=== PATIENT | female | born 1965 | race Caucasian/White ===

== ENCOUNTER 2017-08-20 00:05 | Observation (INO) | payer OTHER ==
[2017-08-20] MEDS ORDERED: MORPHINE SULFATE 10 MG/ML IV ONE (00:23)
[2017-08-20] MEDS ORDERED: Zofran 4 MG/2 ML VIAL IV ONE (00:23)
[2017-08-20] MEDS ORDERED: TORAdol 30 mg Injection IV ONE (00:23)
[2017-08-20] MEDS ORDERED: Sodium Chloride 0.9% 1000 ML 1,000 ML IV STA (00:23)
--- NOTE | 2017-08-20 00:26 | ERPHSYRPT ---
- History of Present Illness Time Seen by Provider: 08/20/17 00:21 Historian: patient Exam Limitations: no limitations Physician History: The patient is a 51-year-old female with her complaining of increasing right sided abdominal pain and right flank pain since earlier today. She is nauseated. She has not vomited. She did take her prescription Zantac today. She's had a cholecystectomy. She had a kidney stone with ureteral stents 24 years ago. She has a history of hypertension but no longer takes any medicine. She has a history of irritable bowel syndrome. She has gastric reflux. Pt last ate at 2 PM. Timing/Duration: today Activities at Onset: none Quality: sharpness Abdominal Pain Onset Location: RLQ, flank (right flank) Pain Radiation: no radiation Severity of Pain-Max: severe Severity of Pain-Current: severe Modifying Factors: Improves With: nothing Associated Symptoms: nausea Previous symptoms: no prior history Allergies/Adverse Reactions: hydromorphone [From Dilaudid] Adverse Reaction (Verified 08/20/17 00:33) Home Medications: Ranitidine HCl [Zantac] 150 mg PO DAILY 01/14/15 [History] Alprazolam [Xanax] 0 mg HS 08/20/17 [History] Melatonin 5 mg PO HS 08/20/17 [History] Hx Tetanus, Diphtheria Vaccination/Date Given: No Hx Influenza Vaccination/Date Given: Yes Hx Pneumococcal Vaccination/Date Given: No - Review of Systems Constitutional: No Fever, No Chills Eyes: No Symptoms Ears, Nose, & Throat: No Symptoms Respiratory: No Cough, No Dyspnea Cardiac: No Chest Pain, No Edema, No Syncope Abdominal/Gastrointestinal: Abdominal Pain, Nausea Genitourinary Symptoms: No Dysuria Musculoskeletal: No Back Pain, No Neck Pain Skin: No Rash Neurological: No Dizziness, No Focal Weakness, No Sensory Changes Psychological: No Symptoms Endocrine: No Symptoms Hematologic/Lymphatic: No Symptoms Immunological/Allergic: No Symptoms All Other Systems: Reviewed and Negative - Past Medical History Pertinent Past Medical History: Yes Neurological History: No Pertinent History ENT History: No Pertinent History Cardiac History: Hypertension Respiratory History: Other Endocrine Medical History: No Pertinent History Musculoskeletal History: Fibromyalgia, Osteoarthritis GI Medical History: Diverticulosis, GERD History: No Pertinent History Psycho-Social History: Anxiety, Depression Female Reproductive Disorders: No Pertinent History Other Medical History: SEASONAL ALLERGIES, OA KNEES, GERD - Past Surgical History Past Surgical History: Yes Neuro Surgical History: No Pertinent History Cardiac: No Pertinent History Respiratory: No Pertinent History Gastrointestinal: Cholecystectomy Genitourinary: No Pertinent History Musculoskeletal: No Pertinent History Female Surgical History: Section Other Surgical History: x 1 (epicural) - Social History Smoking Status: Never smoker Exposure to second hand smoke: No Alcohol Use: None Drug Use: none Patient Lives Alone: No Significant Family History: diabetes, hypertension - Female History Hx Now: No - Nursing Vital Signs Nursing Vital Signs: Initial Vital Signs Temperature 98 F 08/20/17 00:23 Pulse Rate 70 08/20/17 00:23 Respiratory Rate 16 08/20/17 00:23 Blood Pressure 168/120 08/20/17 00:23 O2 Sat by Pulse Oximetry 99 08/20/17 00:23 Pain Scale Pain Intensity 5 - Physical Exam General Appearance: moderate distress Eye Exam: PERRL/EOMI, eyes nml inspection Ears, Nose, Throat Exam: normal ENT inspection, pharynx normal, moist mucous membranes Neck Exam: normal inspection, non-tender, supple, full range of motion Respiratory Exam: normal breath sounds, lungs clear, No respiratory distress Cardiovascular Exam: regular rate/rhythm, normal heart sounds Gastrointestinal/Abdomen Exam: tenderness (RLQ), guarding, rebound Pelvic Exam: not done Rectal Exam: not done Back Exam: CVA tenderness (right) Extremity Exam: normal inspection, normal range of motion, pelvis stable Neurologic Exam: alert, oriented x 3, cooperative, normal mood/affect, nml cerebellar function, sensation nml, No motor deficits Skin Exam: normal color, warm, dry SpO2 Interpretation: normal - CT Exams Abdomen/Pelvis CT Interpretation: Tele-radiologist Report, No appendicitis, Other (mildly dilated segment of small bowel in mid abd: possible low grade ileus. nonobstructing right renal calculus. unchanged 5 mm LLL pulmonary nodule. per Dr Carrasco.) Ordered Tests: Active Orders 24 hr Category Date Time Status Clean Catch Urine Specimen STAT Care 08/20/17 00:34 Active IV Insertion STAT Care 08/20/17 00:23 Active ABDOMEN AND PELVIS W/0 CONTRAS [CT] Stat Exams 08/20/17 00:22 Taken CBC W DIFF Stat Lab 08/20/17 00:35 Completed CMP Stat Lab 08/20/17 00:35 Completed HCG QUALITATIVE,SERUM Stat Lab 08/20/17 00:35 Completed LIPASE Stat Lab 08/20/17 00:35 Completed Lactic Acid Stat Lab 08/20/17 00:40 Completed TROPONIN Q3H Lab 08/20/17 00:35 Completed TROPONIN Q3H Lab 08/20/17 03:30 Ordered TROPONIN Q3H Lab 08/20/17 06:30 Ordered TROPONIN Q3H Lab 08/20/17 09:30 Ordered TROPONIN Q3H Lab 08/20/17 12:30 Ordered UA W/RFX UR CULTURE Stat Lab 08/20/17 00:30 Completed Medication Summary Discontinued Medications Generic Name Dose Route Start Last Admin Trade Name Freq PRN Reason Stop Dose Admin Sodium Chloride 1,000 mls @ 999 mls/hr 08/20/17 00:23 08/20/17 00:42 Sodium Chloride 0.9% 1000 Ml IV 08/20/17 01:23 999 mls/hr .Q1H1M STA Administration Sodium Chloride Confirm 08/20/17 00:38 Sodium Chloride 0.9% 1000 Ml Administered 08/20/17 00:39 Dose 1,000 mls @ ud .ROUTE .STK-MED ONE Ketorolac Tromethamine 30 mg 08/20/17 00:23 08/20/17 00:41 Toradol 30 Mg Injection IV 08/20/17 00:24 30 mg STAT ONE Administration Ketorolac Tromethamine Confirm 08/20/17 00:38 Toradol 30 Mg Injection Administered 08/20/17 00:39 Dose 30 mg .ROUTE .STK-MED ONE Morphine Sulfate 8 mg 08/20/17 00:23 08/20/17 00:44 Morphine Sulfate 10 Mg/Ml IV 08/20/17 00:24 8 mg STAT ONE Administration Morphine Sulfate Confirm 08/20/17 00:38 Morphine Sulfate 10 Mg/Ml Administered 08/20/17 00:39 Dose 10 mg .ROUTE .STK-MED ONE Ondansetron HCl 4 mg 08/20/17 00:23 08/20/17 00:43 Zofran 4 Mg/2 Ml Vial IV 08/20/17 00:24 4 mg STAT ONE Administration Ondansetron HCl Confirm 08/20/17 00:38 Zofran 4 Mg/2 Ml Vial Administered 08/20/17 00:39 Dose 4 mg .ROUTE .STK-MED ONE Lab/Rad Data: Laboratory Result Diagrams 08/20/17 00:35 08/20/17 00:35 Laboratory Results 08/20/17 08/20/17 08/20/17 Range/Units 00:40 00:35 00:35 WBC (4.0-10.5) K/mm3 RBC (4.1-5.4) M/mm3 Hgb (12.0-16.0) gm/dl Hct (35-47) % MCV (78-100) fl MCH (26-32) pg MCHC (32-36) g/dl RDW (11.5-14.0) % Plt Count (150-450) K/mm3 MPV (6-9.5) fl Gran % (36.0-66.0) % Lymphocytes % (24.0-44.0) % Monocytes % (0.0-12.0) % Eosinophils % (0.00-5.0) % Basophils % (0.0-0.4) % Basophils # (0-0.4) Sodium (136-145) mEq/L Potassium (3.5-5.1) mEq/L Chloride (98-107) mEq/L Carbon Dioxide (21-32) mEq/L Anion Gap (5-15) MEQ/L BUN (9-20) mg/dL Creatinine (0.55-1.30) mg/dl Estimated GFR ML/MIN Glucose (70-110) MG/DL Lactic Acid 1.2 (0.4-2.0) Calcium (8.5-10.1) mg/dL Total Bilirubin (0.2-1.0) mg/dL AST (15-37) U/L ALT (12-78) U/L Alkaline Phosphatase (46-116) U/L Troponin I < 0.017 (0.000-0.056) ng/ml Serum Total Protein (6.4-8.2) gm/dL Albumin (3.4-5.0) g/dL Lipase (73-393) U/L Serum , Qual NEGATIVE (Negative) Ur Collection Type Urine Color (YELLOW) Urine Appearance (CLEAR) Urine pH (5-6) Ur Specific Erving (1.005-1.025) Urine Protein (Negative) Urine Ketones (NEGATIVE) Urine Blood (0-5) Dilip/ul Urine Nitrite (NEGATIVE) Urine Bilirubin (NEGATIVE) Urine Urobilinogen (0-1) mg/dL Ur Leukocyte Esterase (NEGATIVE) Urine Culture Reflexed (NO) Urine Glucose (NEGATIVE) mg/dL Specimen Received 08/20/17 08/20/17 08/20/17 Range/Units 00:35 00:35 00:30 WBC 7.8 (4.0-10.5) K/mm3 RBC 4.90 (4.1-5.4) M/mm3 Hgb 14.5 (12.0-16.0) gm/dl Hct 42.7 (35-47) % MCV 87.1 (78-100) fl MCH 29.6 (26-32) pg MCHC 34.0 (32-36) g/dl RDW 12.8 (11.5-14.0) % Plt Count 284 (150-450) K/mm3 MPV 9.5 (6-9.5) fl Gran % 52.8 (36.0-66.0) % Lymphocytes % 37.9 (24.0-44.0) % Monocytes % 7.9 (0.0-12.0) % Eosinophils % 1.0 (0.00-5.0) % Basophils % 0.4 (0.0-0.4) % Basophils # 0.03 (0-0.4) Sodium 140 (136-145) mEq/L Potassium 4.0 (3.5-5.1) mEq/L Chloride 103 (98-107) mEq/L Carbon Dioxide 25.7 (21-32) mEq/L Anion Gap 15.0 (5-15) MEQ/L BUN 22 H (9-20) mg/dL Creatinine 0.62 (0.55-1.30) mg/dl Estimated GFR > 60 ML/MIN Glucose 125 H (70-110) MG/DL Lactic Acid (0.4-2.0) Calcium 10.1 (8.5-10.1) mg/dL Total Bilirubin 0.30 (0.2-1.0) mg/dL AST 31 (15-37) U/L ALT 48 (12-78) U/L Alkaline Phosphatase 98 (46-116) U/L Troponin I (0.000-0.056) ng/ml Serum Total Protein 8.1 (6.4-8.2) gm/dL Albumin 4.3 (3.4-5.0) g/dL Lipase 141 (73-393) U/L Serum , Qual (Negative) Ur Collection Type CLEAN CATCH Urine Color YELLOW (YELLOW) Urine Appearance CLEAR (CLEAR) Urine pH 5.0 (5-6) Ur Specific Erving 1.010 (1.005-1.025) Urine Protein NEGATIVE (Negative) Urine Ketones NEGATIVE (NEGATIVE) Urine Blood NEGATIVE (0-5) Dilip/ul Urine Nitrite NEGATIVE (NEGATIVE) Urine Bilirubin NEGATIVE (NEGATIVE) Urine Urobilinogen NORMAL (0-1) mg/dL Ur Leukocyte Esterase NEGATIVE (NEGATIVE) Urine Culture Reflexed NO (NO) Urine Glucose NEGATIVE (NEGATIVE) mg/dL Specimen Received 08/20/17:0030 - Progress Progress: improved, pain not gone completely Discussed with : Florina Will see patient in: hospital (observation) Counseled pt/family regarding: lab results, diagnosis, rad results - Departure Time of Disposition: 01:44 Departure Disposition: Observation (per Dr Heaton) Clinical Impression: Abdominal pain, Nausea Condition: Stable Critical Care Time: No Referrals: JOANA HAIDER [Primary Care Provider] - Additional Instructions: Your being admitted to the hospital for abdominal pain and nausea per Dr. Heaton.
[2017-08-20] MEDS ORDERED: TORAdol 30 mg Injection ONE (00:38)
[2017-08-20] MEDS ORDERED: Sodium Chloride 0.9% 1000 ML 1,000 ML ONE (00:38)
[2017-08-20] MEDS ORDERED: Zofran 4 MG/2 ML VIAL ONE (00:38)
[2017-08-20] MEDS ORDERED: MORPHINE SULFATE 10 MG/ML ONE (00:38)
[2017-08-20 00:42] LABS: ADD URINE CULTURE? NO (NO); Bilirubin NEGATIVE (NEGATIVE); Blood NEGATIVE Ery/ul (0-5); COMPLETE URINE MICROSCOPIC? NO; Collection Type CLEAN CATCH; Glucose NEGATIVE (NEGATIVE); Leukocyte Esterase NEGATIVE (NEGATIVE)
[2017-08-20 00:44] LABS: BASOPHIL % 0.4 % (0.0-0.4); Granulocytes % 52.8 % (36.0-66.0); Lymphocytes % 37.9 % (24.0-44.0); Mean Cell Volume 87.1 fl (78-100); Mean Corpuscular Hemoglobin 29.6 pg (26-32); Mean Platelet Volume 9.5 fl (6-9.5); Monocytes % 7.9 % (0.0-12.0); Platelet Count 284 K/mm3 (150-450); Red Cell Distribution Width 12.8 % (11.5-14.0); White Blood Count 7.8 K/mm3 (4.0-10.5)
[2017-08-20 01:00] LABS: ALBUMIN 4.3 g/dL (3.4-5.0); ALKALINE PHOSPHATASE 98 U/L (46-116); BLOOD UREA NITROGEN 22 mg/dL (9-20); CHLORIDE 103 mEq/L (98-107); Carbon Dioxide 25.7 mEq/L (21-32); Glucose 125 MG/DL (70-110); LIPASE 141 U/L (73-393); SGOT/AST 31 U/L (15-37); SGPT/ALT 48 U/L (12-78); SODIUM 140 mEq/L (136-145); Total Protein 8.1 gm/dL (6.4-8.2)
[2017-08-20] MEDS ORDERED: Zofran 4 MG/2 ML VIAL IV PRN (02:18)
[2017-08-20] MEDS ORDERED: Phenergan 25 MG INJ IM PRN (02:18)
[2017-08-20] MEDS ORDERED: MORPHINE SULFATE 4 MG INJ IV PRN (02:18)
[2017-08-20] MEDS ORDERED: Sodium Chloride 0.9% 1000 ML 1,000 ML IV SCH (02:18)
[2017-08-20 07:00] LABS: BASOPHIL % 0.2 % (0.0-0.4); Eosinophil % 0.1 % (0.00-5.0); Granulocytes % 71.8 % (36.0-66.0); Lymphocytes % 21.1 % (24.0-44.0); Mean Cell Volume 87.4 fl (78-100); Mean Corpuscular Hemoglobin 29.3 pg (26-32); Mean Platelet Volume 9.8 fl (6-9.5); Monocytes % 6.8 % (0.0-12.0); Platelet Count 255 K/mm3 (150-450); Red Blood Count 4.61 M/mm3 (4.1-5.4); Red Cell Distribution Width 12.8 % (11.5-14.0); White Blood Count 8.1 K/mm3 (4.0-10.5)
[2017-08-20 07:09] LABS: ALBUMIN 3.5 g/dL (3.4-5.0); ALKALINE PHOSPHATASE 75 U/L (46-116); ANION GAP 14.2 MEQ/L (5-15); BLOOD UREA NITROGEN 16 mg/dL (9-20); CHLORIDE 106 mEq/L (98-107); Carbon Dioxide 24.2 mEq/L (21-32); Glucose 117 MG/DL (70-110); Potassium 4.3 mEq/L (3.5-5.1); SGOT/AST 46 U/L (15-37); SGPT/ALT 61 U/L (12-78); SODIUM 140 mEq/L (136-145); Total Protein 7.4 gm/dL (6.4-8.2)
--- NOTE | 2017-08-20 07:54 | XRAY ---
Indication: Abdominal pain. History kidney stones. Multiple contiguous axial images obtained through the abdomen and pelvis without contrast using renal stone protocol. Comparison: June 14, 2015. Lung bases demonstrates minimal bibasilar atelectasis/scarring with stable right lower lobe calcified granuloma. Heart is not enlarged. Stable nonobstructing punctate right renal calculus. Left kidney negative for renal calculus or evidence for obstructive uropathy. Noncontrasted stomach and bowel loops appear nonobstructed. Scattered descending/sigmoid diverticulosis without diverticulitis. Normal appendix. Previous cholecystectomy. Mild fatty liver. No free fluid/air. Remaining liver, pancreas, spleen, adrenal glands, kidneys, ureters, bladder, uterus, and aorta appear unremarkable for noncontrast exam. Osseous structures intact. Impression: 1. Stable nonobstructing right renal micro-calculus. 2. Stable colonic diverticulosis and fatty liver. 3. No new/acute intra-abdominal/pelvic abnormalities on this noncontrast exam. Comment: Preliminary interpretation was made by C. No discrepancy. CTDI 22.55
[2017-08-20] MEDS ORDERED: PROTONIX 40 MG IV IV SCH (10:00)
[2017-08-20] MEDS ORDERED: TYLENOL EXTRA STRENGTH 500 MG PO PRN (10:09)
[2017-08-20] MEDS ORDERED: ZOFRAN ODT 4 MG PO PRN (10:45)
[2017-08-20] MEDS ORDERED: Pepcid 20 MG PO SCH (11:00)
[2017-08-20 11:20] VITALS: BP 151/68; PULSE 63; O2SAT 96
[2017-08-20] MEDS ORDERED: xanAX 0.25 MG PO SCH (22:00)
--- NOTE | 2017-08-21 08:07 | HP ---
CHIEF COMPLAINT: Epigastric pain. HISTORY OF PRESENT ILLNESS: The patient is a 51 year-old white female who reports that she was having increasing stress recently. Her abdominal pain was due to a combination of not eating right and stress. The patient has had epigastric pain off and on for some time. She has had previous endoscopy which was essentially unrevealing. She reports that omeprazole really did not help much and that she takes Zantac 150 mg b.i.d. She also takes Margot's which does give her some temporary relief. The patient reports that last evening she was having vomiting with her abdominal pain but no diarrhea. The patient previously has had a cholecystectomy. She has had colonoscopy in the past three years ago which did show colon polyps. She also was noted to have diverticulosis but not diverticulitis. PAST MEDICAL/SURGICAL HISTORY: She reports seasonal allergies, fibromyalgia, osteoarthritis and hypertension. HOME MEDICATIONS: Zantac 150 mg b.i.d., Xanax 0.5 mg at nighttime for anxiety, melatonin 5 mg at night. ALLERGIES: DILAUDID. PHYSICAL EXAMINATION: Revealed a mildly obese white female currently in moderate to mild distress due to her abdominal discomfort. Her temperature is 98.0F, pulse 70, respiratory rate 16, blood pressure 168/120. O2 saturation 99% on room air. HEENT: Normocephalic, atraumatic. Pupils equal round reactive to light. Extraocular movements intact. Oropharynx is pink and moist. NECK: Supple without lymphadenopathy, thyromegaly or JVD. CHEST: Clear to auscultation with good air movement bilaterally. ABDOMEN: Soft, nontender, nondistended without hepatosplenomegaly or masses. She is somewhat tender throughout. No guarding or rebound is present. EXTREMITIES: Without clubbing, cyanosis or edema. NEUROLOGIC: The patient is alert and oriented x3. LAB DATA AND TESTS: CT scan revealed no appendicitis, nonobstructing right renal calculus, 5 mm left lower lobe pulmonary nodule which is unchanged from previous. She had a metabolic panel showing a glucose of 117, BUN 16, creatinine 0.64. Electrolytes were normal. Liver enzymes were normal. Bilirubin is normal. Troponins less than 0.017. White blood cell count 8,100, hemoglobin 13.5, PLT count 255,000. She had a lipase of 141. HCG was negative. Lactic acid 1.2. UA was normal. ASSESSMENT: A patient with abdominal pain likely gastric in origin. She is given IV Protonix and allowed to advance her diet. If she is able to tolerate her meals she will be able to discharge home. She reports she has an appointment to see Dr. Augustin this coming week for upper endoscopy. If the patient however cannot tolerate the meals and continues to have abdominal pain, we will perform the scope for her at our facility tomorrow morning.
== END 2017-08-20 13:30 | disposition home or self-care (01) ==
LOC: ED 00:05 → MED SURG 01:57
PROVIDERS: ADMIT Family Medicine; ATTEND Family Medicine
DX: R10.13 Epigastric pain (principal); I10 Essential (primary) hypertension
CPT/HCPCS: 36000; 36415; 74176; 80053; 81002; 83605; 83690; 84484; 84703; 85025; 94762; 96360; 96374; 96375; 99285; G0378; J1885; J2270; J2405; J2550; A9270-GY

== ENCOUNTER 2018-02-02 17:28 | Emergency (ER) | payer OTHER ==
[2018-02-02] MEDS ORDERED: GI COCKTAIL 45 ML (Maalox/Lidocaine) PO ONE (18:01)
[2018-02-02] MEDS ORDERED: Zofran 4 MG/2 ML VIAL IV ONE (18:01)
[2018-02-02] MEDS ORDERED: Sodium Chloride 0.9% 1000 ML 1,000 ML IV STA (18:01)
[2018-02-02] MEDS ORDERED: Pepcid 20 MG VIAL IV ONE ×2 (18:01→18:08)
--- NOTE | 2018-02-02 18:01 | ERPHSYRPT ---
<MALIK SNOWDEN. - Last Filed: 02/02/18 18:57> - History of Present Illness Time Seen by Provider: 02/02/18 17:45 Historian: patient Exam Limitations: no limitations Patient Subjective Stated Complaint: pt here for chest pain to center that radiates to back for a couple days, headache,cough.stuffy nose. her was also found this morning. pt is very emtional Triage Nursing Assessment: pt alert, crying, upset over today, resp easy , skin w/d/p. chest clear, Physician History: The patient is a 52-year-old female complains of left-sided chest pain for 2 days. The pain is more like a achy pressure. She also has back pain that is a burning sensation for 2 days as well. She denies shortness of breath. She has been sick to her stomach today. She is very distraught because her suddenly in his sleep last night and she found him in the morning. She hasn't had anything to drink or eat all day. She is tearful at times during the interview. She denies cough. She also has a sore throat. The sore throat is been going on for 2 days as well. Her past medical history is significant for GERD, fibromyalgia, and hypertension. She does not take her hypertensive medicines. She does take her medicines for reflux. Timing/Duration: day(s) (2), gradual onset Activities at Onset: none Quality: aching, pressure Location: substernal Chest Pain Radiation: back Severity of Pain-Max: moderate Severity of Pain-Current: moderate Modifying Factors: Improves With: nothing Associated Symptoms: nausea, hurts to breathe, back pain, No shortness of breath , No cough Prior Chest Pain/Cardiac Workup: no prior chest pain, no prior cardiac workup Nitro Today/Relief: no nitro taken today Aspirin Treatment Today: no aspirin today Allergies/Adverse Reactions: iodine Allergy (Verified 02/02/18 17:37) hydromorphone [From Dilaudid] Adverse Reaction (Verified 08/20/17 00:33) Home Medications: Ranitidine HCl [Zantac] 150 mg PO BID 08/20/17 [History] Cyclobenzaprine HCl [Flexeril] 5 mg DAILY 02/02/18 [History] Omeprazole 20 MG [Prilosec 20 mg] 20 mg PO DAILY 02/02/18 [History] Hx Tetanus, Diphtheria Vaccination/Date Given: No Hx Influenza Vaccination/Date Given: Yes Hx Pneumococcal Vaccination/Date Given: No Immunizations Up to Date: Yes - Review of Systems Constitutional: No Fever, No Chills Eyes: No Symptoms Ears, Nose, & Throat: Throat Pain Respiratory: No Cough, No Dyspnea Cardiac: No Chest Pain, No Edema, No Syncope Abdominal/Gastrointestinal: Nausea, No Abdominal Pain, No Vomiting, No Diarrhea Genitourinary Symptoms: No Dysuria Musculoskeletal: Back Pain, No Neck Pain Skin: No Rash Neurological: No Dizziness, No Focal Weakness, No Sensory Changes Psychological: No Symptoms Endocrine: No Symptoms Hematologic/Lymphatic: No Symptoms Immunological/Allergic: No Symptoms All Other Systems: Reviewed and Negative - Past Medical History Pertinent Past Medical History: Yes Neurological History: No Pertinent History ENT History: No Pertinent History Cardiac History: Hypertension Respiratory History: Other Endocrine Medical History: No Pertinent History Musculoskeletal History: Fibromyalgia, Osteoarthritis GI Medical History: Diverticulosis, GERD History: No Pertinent History Psycho-Social History: Anxiety, Depression Female Reproductive Disorders: No Pertinent History Other Medical History: SEASONAL ALLERGIES, OA KNEES, GERD - Past Surgical History Past Surgical History: Yes Neuro Surgical History: No Pertinent History Cardiac: No Pertinent History Respiratory: No Pertinent History Gastrointestinal: Cholecystectomy Genitourinary: Other Musculoskeletal: No Pertinent History Female Surgical History: Section Other Surgical History: x 1 (epicural), stints placed in bilat kidneys - Social History Smoking Status: Never smoker Exposure to second hand smoke: No Alcohol Use: None Drug Use: none Patient Lives Alone: No Significant Family History: diabetes, hypertension - Female History Hx Last Menstrual Period: [place] Hx Now: No - Nursing Vital Signs Nursing Vital Signs: Initial Vital Signs Temperature 98.6 F 02/02/18 17:29 Pulse Rate 100 H 02/02/18 17:29 Respiratory Rate 18 02/02/18 17:29 Blood Pressure 186/116 02/02/18 17:29 O2 Sat by Pulse Oximetry 98 02/02/18 17:29 Pain Scale Pain Intensity 3 - Physical Exam General Appearance: anxiety Eye Exam: PERRL/EOMI, eyes nml inspection Ears, Nose, Throat Exam: moist mucous membranes, dry mucous membranes Neck Exam: normal inspection, non-tender, supple, full range of motion Respiratory Exam: normal breath sounds, chest tenderness (left anterior tenderness to palpation that reproduces pt's pain), lungs clear, No respiratory distress Cardiovascular Exam: regular rate/rhythm, normal heart sounds Gastrointestinal/Abdomen Exam: soft, No tenderness, No mass Pelvic Exam: not done Rectal Exam: deferred Back Exam: normal inspection, No CVA tenderness, No vertebral tenderness Extremity Exam: normal inspection, normal range of motion Neurologic Exam: alert, oriented x 3, cooperative, sensation nml, other (tearful ), No motor deficits Skin Exam: normal color, warm, dry SpO2 Interpretation: normal SpO2: 97 Oxygen Delivery: Room Air - Course EKG Interpreted by Me: RATE, Sinus Rhythm, NORMAL AXIS, NORMAL INTERVALS, NORMAL QRS, NORMAL ST-T - Radiology Exams Chest X-ray Interpretation: Interpreted by me, Negative, Other (Stable 2 cm nodule in right lung base, unchanged since CXR 03/28/14.) Ordered Tests: Active Orders 24 hr Category Date Time Status Flamer Sealer STAT Care 02/02/18 17:42 Active Clean Catch Urine Specimen STAT Care 02/02/18 18:20 Active EKG-ER Only STAT Care 02/02/18 17:42 Active IV Insertion STAT Care 02/02/18 17:42 Active Pulse Oximetry (ED) STAT Care 02/02/18 17:42 Active CHEST 2 VIEWS (PA AND LAT) Stat Exams 02/02/18 18:02 Taken CBC W DIFF Stat Lab 02/02/18 17:35 Completed CMP Stat Lab 02/02/18 17:35 Completed CULTURE, THROAT Stat Lab 02/02/18 18:23 Received Lactic Acid Stat Lab 02/02/18 18:01 Ordered STREP SCREEN-BETA A Stat Lab 02/02/18 18:23 Completed TROPONIN Q3H Lab 02/02/18 17:35 Completed TROPONIN Q3H Lab 02/02/18 21:15 Ordered TROPONIN Q3H Lab 02/03/18 00:15 Ordered TROPONIN Q3H Lab 02/03/18 03:15 Ordered TROPONIN Q3H Lab 02/03/18 06:15 Ordered UA W/ MICROSCOPIC Stat Lab 02/02/18 18:15 Completed Medication Summary Discontinued Medications Generic Name Dose Route Start Last Admin Trade Name Freq PRN Reason Stop Dose Admin Al Hydrox/Mg Hydrox/Simethicone Confirm 02/02/18 18:10 Maalox Es 30 Ml Unit Dose Administered 02/02/18 18:11 Dose 30 ml .ROUTE .STK-MED ONE Famotidine 20 mg 02/02/18 18:01 02/02/18 18:14 Pepcid 20 Mg Vial IV 02/02/18 18:02 20 mg STAT ONE Administration Famotidine Confirm 02/02/18 18:08 Pepcid 20 Mg Vial Administered 02/02/18 18:09 Dose 20 mg IV .STK-MED ONE Sodium Chloride 1,000 mls @ 999 mls/hr 02/02/18 18:01 02/02/18 18:15 Sodium Chloride 0.9% 1000 Ml IV 02/02/18 19:01 999 mls/hr .Q1H1M STA Administration Sodium Chloride Confirm 02/02/18 18:10 Sodium Chloride 0.9% 1000 Ml Administered 02/02/18 18:11 Dose 1,000 mls @ ud .ROUTE .STK-MED ONE Lidocaine HCl Confirm 02/02/18 18:09 Xylocaine Hcl Viscous * Administered 02/02/18 18:10 Dose 15 ml .ROUTE .STK-MED ONE Lorazepam 1 mg 02/02/18 18:05 02/02/18 18:15 Ativan 2 Mg/1 Ml Vial IV 02/02/18 18:06 1 mg STAT ONE Administration Lorazepam Confirm 02/02/18 18:08 Ativan 2 Mg/1 Ml Vial Administered 02/02/18 18:09 Dose 2 mg .ROUTE .STK-MED ONE Magnesium Hydroxide 45 ml 02/02/18 18:01 02/02/18 18:15 Gi Cocktail 45 Ml (Maalox/Lidocaine) PO 02/02/18 18:02 45 ml STAT ONE Administration Ondansetron HCl 4 mg 02/02/18 18:01 02/02/18 18:15 Zofran 4 Mg/2 Ml Vial IV 02/02/18 18:02 4 mg STAT ONE Administration Ondansetron HCl Confirm 02/02/18 18:08 Zofran 4 Mg/2 Ml Vial Administered 02/02/18 18:09 Dose 4 mg .ROUTE .STK-MED ONE Lab/Rad Data: Laboratory Result Diagrams 02/02/18 17:35 02/02/18 17:35 Laboratory Results 02/02/18 02/02/18 02/02/18 Range/Units 18:23 18:23 18:15 WBC (4.0-10.5) K/mm3 RBC (4.1-5.4) M/mm3 Hgb (12.0-16.0) gm/dl Hct (35-47) % MCV (78-100) fl MCH (26-32) pg MCHC (32-36) g/dl RDW (11.5-14.0) % Plt Count (150-450) K/mm3 MPV (6-9.5) fl Gran % (36.0-66.0) % Eos # (Auto) (0-0.5) Absolute Lymphs (auto) (1.0-4.6) Absolute Monos (auto) (0.0-1.3) Lymphocytes % (24.0-44.0) % Monocytes % (0.0-12.0) % Eosinophils % (0.00-5.0) % Basophils % (0.0-0.4) % Absolute Granulocytes (1.4-6.9) Basophils # (0-0.4) Sodium (137-145) mmol/L Potassium (3.5-5.1) mmol/L Chloride (98-107) mmol/L Carbon Dioxide (22-30) mmol/L Anion Gap (5-15) MEQ/L BUN (7-17) mg/dL Creatinine (0.52-1.04) mg/dL Estimated GFR ML/MIN Glucose (74-106) mg/dL Calcium (8.4-10.2) mg/dL Total Bilirubin (0.2-1.3) mg/dL AST (14-36) U/L ALT (0-35) U/L Alkaline Phosphatase (38-126) U/L Troponin I (0.000-0.034) ng/mL Serum Total Protein (6.3-8.2) g/dL Albumin (3.5-5.0) g/dL Ur Collection Type CCMS' Urine Color YELLOW (YELLOW) Urine Appearance CLEAR (CLEAR) Urine pH 6.0 (5-6) Ur Specific [place] 1.010 (1.005-1.025) Urine Protein TRACE (Negative) Urine Ketones MODERATE (NEGATIVE) Urine Blood TRACE NON-HEM (0-5) Dilip/ul Urine Nitrite NEGATIVE (NEGATIVE) Urine Bilirubin NEGATIVE (NEGATIVE) Urine Urobilinogen NORMAL (0-1) mg/dL Ur Leukocyte Esterase NEGATIVE (NEGATIVE) Urine Microscopic RBC 0-2 (0-2) /HPF Urine Microscopic WBC 0-2 (0-5) /HPF Ur Epithelial Cells FEW (FEW) /HPF Urine Culture Reflexed NO (NO) Urine Glucose NEGATIVE (NEGATIVE) mg/dL Influenza Type A Ag NEGATIVE (NEGATIVE) Influenza Type B Ag NEGATIVE (NEGATIVE) RSV (PCR) NEGATIVE (Negative) Streptococcus Screen NEGATIVE (Negative) Specimen Received 02-02-18 1900 02/02/18 02/02/18 02/02/18 Range/Units 17:35 17:35 17:35 WBC 9.0 (4.0-10.5) K/mm3 RBC 5.00 (4.1-5.4) M/mm3 Hgb 15.1 (12.0-16.0) gm/dl Hct 43.2 (35-47) % MCV 86.4 (78-100) fl MCH 30.2 (26-32) pg MCHC 35.0 (32-36) g/dl RDW 13.2 (11.5-14.0) % Plt Count 316 (150-450) K/mm3 MPV 9.7 H (6-9.5) fl Gran % 72.8 H (36.0-66.0) % Eos # (Auto) 0 (0-0.5) Absolute Lymphs (auto) 1.76 (1.0-4.6) Absolute Monos (auto) 0.68 (0.0-1.3) Lymphocytes % 19.5 L (24.0-44.0) % Monocytes % 7.5 (0.0-12.0) % Eosinophils % 0.0 (0.00-5.0) % Basophils % 0.2 (0.0-0.4) % Absolute Granulocytes 6.56 (1.4-6.9) Basophils # 0.02 (0-0.4) Sodium 143 (137-145) mmol/L Potassium 4.1 (3.5-5.1) mmol/L Chloride 105 (98-107) mmol/L Carbon Dioxide 23 (22-30) mmol/L Anion Gap 18.7 H (5-15) MEQ/L BUN 13 (7-17) mg/dL Creatinine 0.58 (0.52-1.04) mg/dL Estimated GFR > 60 ML/MIN Glucose 130 H (74-106) mg/dL Calcium 10.3 H (8.4-10.2) mg/dL Total Bilirubin 0.50 (0.2-1.3) mg/dL AST 60 H (14-36) U/L ALT 91 H (0-35) U/L Alkaline Phosphatase 116 (38-126) U/L Troponin I 0.685 H* (0.000-0.034) ng/mL Serum Total Protein 8.6 H (6.3-8.2) g/dL Albumin 4.9 (3.5-5.0) g/dL Ur Collection Type Urine Color (YELLOW) Urine Appearance (CLEAR) Urine pH (5-6) Ur Specific [place] (1.005-1.025) Urine Protein (Negative) Urine Ketones (NEGATIVE) Urine Blood (0-5) Dilip/ul Urine Nitrite (NEGATIVE) Urine Bilirubin (NEGATIVE) Urine Urobilinogen (0-1) mg/dL Ur Leukocyte Esterase (NEGATIVE) Urine Microscopic RBC (0-2) /HPF Urine Microscopic WBC (0-5) /HPF Ur Epithelial Cells (FEW) /HPF Urine Culture Reflexed (NO) Urine Glucose (NEGATIVE) mg/dL Influenza Type A Ag (NEGATIVE) Influenza Type B Ag (NEGATIVE) RSV (PCR) (Negative) Streptococcus Screen (Negative) Specimen Received - Progress Progress Note: 02/02/18 18:58 PLt care discussed and care transferred to Dr Tsang at 19:00. - Departure Clinical Impression: Non-ST elevation DE (NSTEMI) Condition: Stable Referrals: JOANA COLMENARES [Primary Care Provider] - <JOSESITO TSANG - Last Filed: 02/02/18 19:37> - Progress Progress: re-examined Air Movement: good Progress Note: 02/02/18 19:30 Patient troponin has come positive value is 0.61, normal range is 0.00-0.034, I talked to Dr. Colmenares and see advised patient to be transferred to [facility]. Blood Culture(s) Obtained: No Antibiotics given: No Discussed with Dr.: Other (Dr Oro at [facility] ER) Will see patient in: other Counseled pt/family regarding: lab results, diagnosis, rad results - Departure Time of Disposition: 19:37 Departure Disposition: Transfer ([facility] ER) Critical Care Time: Yes Critical Care Time(excluding separately billable procedures): 30-74 minutes
[2018-02-02] MEDS ORDERED: Ativan 2 MG/1 ML VIAL IV ONE ×2 (18:05→19:58)
[2018-02-02] MEDS ORDERED: Ativan 2 MG/1 ML VIAL ONE ×2 (18:08→19:52)
[2018-02-02] MEDS ORDERED: Zofran 4 MG/2 ML VIAL ONE (18:08)
[2018-02-02] MEDS ORDERED: XYLOCAINE HCl Viscous ONE (18:09)
[2018-02-02] MEDS ORDERED: MAALOX ES 30 ML UNIT DOSE ONE (18:10)
[2018-02-02] MEDS ORDERED: Sodium Chloride 0.9% 1000 ML 1,000 ML ONE (18:10)
[2018-02-02 18:19] LABS: BASOPHIL % 0.2 % (0.0-0.4); Basophil (Absolute #) 0.02 (0-0.4); Eosinophil (Absolute #) 0 (0-0.5); Granulocyte Absolute (ANC) 6.56 (1.4-6.9); Granulocytes % 72.8 % (36.0-66.0); Hematocrit 43.2 % (35-47); Hemoglobin 15.1 gm/dl (12.0-16.0); Lymphocyte (Absolute #) 1.76 (1.0-4.6); Lymphocytes % 19.5 % (24.0-44.0); Mean Cell Volume 86.4 fl (78-100); Mean Corpuscular Hemoglobin 30.2 pg (26-32); Mean Platelet Volume 9.7 fl (6-9.5); Monocyte (Absolute #) 0.68 (0.0-1.3); Monocytes % 7.5 % (0.0-12.0); Platelet Count 316 K/mm3 (150-450); Red Cell Distribution Width 13.2 % (11.5-14.0)
[2018-02-02 18:23] LABS: ALBUMIN 4.9 g/dL (3.5-5.0); ALKALINE PHOSPHATASE 116 U/L (38-126); ANION GAP 18.7 MEQ/L (5-15); BLOOD UREA NITROGEN 13 mg/dL (7-17); CHLORIDE 105 mmol/L (98-107); Calcium 10.3 mg/dL (8.4-10.2); Carbon Dioxide 23 mmol/L (22-30); Creatinine 1 0.58 mg/dL (0.52-1.04); Glucose 130 mg/dL (74-106); Potassium 4.1 mmol/L (3.5-5.1); SGOT/AST 60 U/L (14-36); SGPT/ALT 91 U/L (0-35); SODIUM 143 mmol/L (137-145); Total Protein 8.6 g/dL (6.3-8.2)
[2018-02-02 18:59] LABS: INFLUENZA A NEGATIVE (NEGATIVE); INFLUENZA B NEGATIVE (NEGATIVE); RESPIRATORY SYNCTIAL VIRUS NEGATIVE (Negative)
[2018-02-02 19:18] LABS: Appearance CLEAR (CLEAR); Bilirubin NEGATIVE (NEGATIVE); Blood TRACE NON-HEM Ery/ul (0-5); Glucose NEGATIVE (NEGATIVE); Ketones MODERATE (NEGATIVE); Leukocyte Esterase NEGATIVE (NEGATIVE); Nitrite NEGATIVE (NEGATIVE); Protein,Urine Dip TRACE (Negative); Urobilinogen NORMAL mg/dL (0-1)
[2018-02-02 19:19] LABS: Epithelial Cells FEW /HPF (FEW); WBC 0-2 /HPF (0-5)
[2018-02-02] MEDS ORDERED: VASOTEC I.V. 2.5 MG IV ONE ×2 (19:38→19:41)
[2018-02-02] MEDS ORDERED: LOPRESSOR 5 MG/5 ML INJECTION IV ONE ×2 (19:38→19:41)
[2018-02-02 19:39] LABS: Lactic Acid 2.1 (0.4-2.0)
[2018-02-02 20:05] VITALS: PULSE 74
[2018-02-02 20:17] VITALS: BP 135/89; O2SAT 98
--- NOTE | 2018-02-03 10:11 | XRAY ---
Indication: Chest pain. Comparison: October 12, 2016. PA/lateral chest demonstrates stable right base calcified granuloma. Remaining heart, lungs, and bony thorax normal.
== END 2018-02-02 20:17 | disposition short-term general hospital (02) ==
LOC: ED 17:28
DX: I21.4 Non-ST elevation (NSTEMI) myocardial infarction (principal); I10 Essential (primary) hypertension; M79.7 Fibromyalgia; M19.90 Unspecified osteoarthritis, unspecified site; K21.9 Gastro-esophageal reflux disease without esophagitis; F41.9 Anxiety disorder, unspecified
CPT/HCPCS: 36000; 36415; 71046; 80053; 81000; 83605; 84484; 85025; 87070; 87430; 87631; 93005; 93041; 96360; 96374; 96375; 96376; 99285; J2060; J2405; A9270-GY

== ENCOUNTER 2018-04-17 04:46 | Emergency (ER) | payer OTHER ==
--- NOTE | 2018-04-17 05:06 | ERPHSYRPT ---
- History of Present Illness Time Seen by Provider: 04/17/18 05:01 Historian: patient Exam Limitations: no limitations Physician History: 52 y/o female with history of IBS and gastritis comes to the ER with complaints of mid abdominal pain and nausea that started this morning. Pt describes the pain as sharp, constant, 8/10 and not relieved by xanax or omeprazole. Pt admits to some constipation as well. Pt denies any fever, chills, vomiting, diarrhea, bloody stools, or urinary symptoms. Pt states that she feels as if this may be her irritable bowel syndrome acting up. Pt arrives to the ER in moderate distress with a BP of 200/100. Timing/Duration: today Activities at Onset: none Quality: sharpness Abdominal Pain Onset Location: periumbilical Pain Radiation: no radiation Severity of Pain-Max: severe Severity of Pain-Current: severe Modifying Factors: Improves With: nothing Associated Symptoms: nausea Previous symptoms: same symptoms as today Allergies/Adverse Reactions: iodine Allergy (Verified 04/17/18 05:07) hydromorphone [From Dilaudid] Adverse Reaction (Verified 04/17/18 05:07) Home Medications: Ranitidine HCl [Zantac] 150 mg PO BID 08/20/17 [History] Omeprazole 20 MG [Prilosec 20 mg] 20 mg PO DAILY 02/02/18 [History] Clonazepam 0.5 mg [Klonopin 0.5 MG] 0.5 mg PO DAILY PRN PRN 04/17/18 [ History] Hx Tetanus, Diphtheria Vaccination/Date Given: No Hx Influenza Vaccination/Date Given: Yes Hx Pneumococcal Vaccination/Date Given: No - Review of Systems Constitutional: No Fever, No Chills Eyes: No Symptoms Ears, Nose, & Throat: No Symptoms Respiratory: No Cough, No Dyspnea Cardiac: No Chest Pain, No Edema, No Syncope Abdominal/Gastrointestinal: Abdominal Pain, Nausea, Constipation, No Vomiting, No Diarrhea Genitourinary Symptoms: No Dysuria Musculoskeletal: No Back Pain, No Neck Pain Skin: No Rash Neurological: No Dizziness, No Focal Weakness, No Sensory Changes Psychological: No Symptoms Endocrine: No Symptoms All Other Systems: Reviewed and Negative - Past Medical History Pertinent Past Medical History: Yes Neurological History: No Pertinent History ENT History: No Pertinent History Cardiac History: Hypertension Respiratory History: Other Endocrine Medical History: No Pertinent History Musculoskeletal History: Fibromyalgia, Osteoarthritis GI Medical History: Diverticulosis, GERD History: No Pertinent History Psycho-Social History: Anxiety, Depression Female Reproductive Disorders: No Pertinent History Other Medical History: SEASONAL ALLERGIES, OA KNEES, GERD - Past Surgical History Past Surgical History: Yes Neuro Surgical History: No Pertinent History Cardiac: No Pertinent History Respiratory: No Pertinent History Gastrointestinal: Cholecystectomy Genitourinary: Other Musculoskeletal: No Pertinent History Female Surgical History: Section Other Surgical History: x 1 (epicural), stints placed in bilat kidneys - Social History Smoking Status: Never smoker Exposure to second hand smoke: No Alcohol Use: None Drug Use: none Patient Lives Alone: No Significant Family History: diabetes, hypertension - Nursing Vital Signs Nursing Vital Signs: Initial Vital Signs Temperature 97.4 F 04/17/18 04:55 Pulse Rate 78 04/17/18 04:55 Respiratory Rate 20 04/17/18 04:55 Blood Pressure 200/111 04/17/18 04:55 O2 Sat by Pulse Oximetry 98 04/17/18 04:55 Pain Scale Pain Intensity 8 - Physical Exam General Appearance: no apparent distress, alert Eye Exam: PERRL/EOMI, eyes nml inspection Ears, Nose, Throat Exam: normal ENT inspection, pharynx normal, moist mucous membranes Neck Exam: normal inspection, non-tender, supple, full range of motion Respiratory Exam: normal breath sounds, lungs clear, No respiratory distress Cardiovascular Exam: regular rate/rhythm, normal heart sounds Gastrointestinal/Abdomen Exam: soft, normal bowel sounds, tenderness, distention , No mass, No guarding, No rebound Back Exam: normal inspection, normal range of motion, No CVA tenderness, No vertebral tenderness Extremity Exam: normal inspection, normal range of motion, pelvis stable Neurologic Exam: alert, oriented x 3, cooperative, normal mood/affect, nml cerebellar function, sensation nml, No motor deficits Skin Exam: normal color, warm, dry - Course Nursing assessment & vital signs reviewed: Yes Ordered Tests: Active Orders 24 hr Category Date Time Status IV Insertion STAT Care 04/17/18 04:59 Active NPO (ED) STAT Care 04/17/18 04:59 Active ABDOMEN AND PELVIS W/0 CONTRAS [CT] Stat Exams 04/17/18 04:59 Taken AMYLASE Stat Lab 04/17/18 05:00 Completed CBC W DIFF Stat Lab 04/17/18 05:00 Completed CMP Stat Lab 04/17/18 05:00 Completed LIPASE Stat Lab 04/17/18 05:00 Completed Lactic Acid Stat Lab 04/17/18 05:10 Completed UA W/RFX UR CULTURE Stat Lab 04/17/18 06:15 Completed Medication Summary Generic Name Dose Route Start Last Admin Trade Name Freq PRN Reason Stop Dose Admin Sodium Chloride 1,000 mls @ 200 mls/hr 04/17/18 05:00 04/17/18 05:13 Sodium Chloride 0.9% 1000 Ml IV 05/17/18 04:59 200 mls/hr .Q5H [place] Administration Discontinued Medications Generic Name Dose Route Start Last Admin Trade Name Freq PRN Reason Stop Dose Admin Morphine Sulfate 4 mg 04/17/18 04:59 04/17/18 05:14 Morphine Sulfate 4 Mg Inj IV 04/17/18 05:00 4 mg STAT ONE Administration Morphine Sulfate Confirm 04/17/18 05:11 Morphine Sulfate 4 Mg Inj Administered 04/17/18 05:12 Dose 4 mg .ROUTE .STK-MED ONE Ondansetron HCl 4 mg 04/17/18 04:59 04/17/18 05:14 Zofran 4 Mg/2 Ml Vial IV 04/17/18 05:00 4 mg STAT ONE Administration Ondansetron HCl Confirm 04/17/18 05:11 Zofran 4 Mg/2 Ml Vial Administered 04/17/18 05:12 Dose 4 mg .ROUTE .STK-MED ONE Promethazine HCl 12.5 mg 04/17/18 05:56 04/17/18 06:02 Phenergan 25 Mg Inj IM 04/17/18 05:57 12.5 mg STAT ONE Administration Promethazine HCl Confirm 04/17/18 06:01 Phenergan 25 Mg Inj Administered 04/17/18 06:02 Dose 25 mg .ROUTE .STK-MED ONE Lab/Rad Data: Laboratory Result Diagrams 04/17/18 05:00 04/17/18 05:00 Laboratory Results 04/17/18 04/17/18 04/17/18 Range/Units 06:15 05:10 05:00 WBC (4.0-10.5) K/mm3 RBC (4.1-5.4) M/mm3 Hgb (12.0-16.0) gm/dl Hct (35-47) % MCV (78-100) fl MCH (26-32) pg MCHC (32-36) g/dl RDW (11.5-14.0) % Plt Count (150-450) K/mm3 MPV (6-9.5) fl Gran % (36.0-66.0) % Eos # (Auto) (0-0.5) Absolute Lymphs (auto) (1.0-4.6) Absolute Monos (auto) (0.0-1.3) Lymphocytes % (24.0-44.0) % Monocytes % (0.0-12.0) % Eosinophils % (0.00-5.0) % Basophils % (0.0-0.4) % Absolute Granulocytes (1.4-6.9) Basophils # (0-0.4) Sodium 145 (137-145) mmol/L Potassium 3.9 (3.5-5.1) mmol/L Chloride 109 H (98-107) mmol/L Carbon Dioxide 23 (22-30) mmol/L Anion Gap 16.8 H (5-15) MEQ/L BUN 18 H (7-17) mg/dL Creatinine 0.62 (0.52-1.04) mg/dL Estimated GFR > 60.0 ML/MIN Glucose 138 H (74-106) mg/dL Lactic Acid 1.7 (0.4-2.0) Calcium 9.9 (8.4-10.2) mg/dL Total Bilirubin 0.20 (0.2-1.3) mg/dL AST 26 (14-36) U/L ALT 39 H (0-35) U/L Alkaline Phosphatase 134 H (38-126) U/L Serum Total Protein 7.5 (6.3-8.2) g/dL Albumin 4.3 (3.5-5.0) g/dL Amylase 68 (30-110) U/L Lipase 85 (23-300) U/L Ur Collection Type CLEAN CATCH Urine Color YELLOW (YELLOW) Urine Appearance CLEAR (CLEAR) Urine pH 5.0 (5-6) Ur Specific [place] 1.015 (1.005-1.025) Urine Protein NEGATIVE (Negative) Urine Ketones NEGATIVE (NEGATIVE) Urine Blood NEGATIVE (0-5) Dilip/ul Urine Nitrite NEGATIVE (NEGATIVE) Urine Bilirubin NEGATIVE (NEGATIVE) Urine Urobilinogen NORMAL (0-1) mg/dL Ur Leukocyte Esterase NEGATIVE (NEGATIVE) Urine Culture Reflexed NO (NO) Urine Glucose NEGATIVE (NEGATIVE) mg/dL Specimen Received 04-17-18 0639 04/17/18 Range/Units 05:00 WBC 5.5 (4.0-10.5) K/mm3 RBC 4.89 (4.1-5.4) M/mm3 Hgb 15.0 (12.0-16.0) gm/dl Hct 42.9 (35-47) % MCV 87.7 (78-100) fl MCH 30.7 (26-32) pg MCHC 35.0 (32-36) g/dl RDW 12.7 (11.5-14.0) % Plt Count 287 (150-450) K/mm3 MPV 9.5 (6-9.5) fl Gran % 56.8 (36.0-66.0) % Eos # (Auto) 0.06 (0-0.5) Absolute Lymphs (auto) 1.88 (1.0-4.6) Absolute Monos (auto) 0.40 (0.0-1.3) Lymphocytes % 34.4 (24.0-44.0) % Monocytes % 7.3 (0.0-12.0) % Eosinophils % 1.1 (0.00-5.0) % Basophils % 0.4 (0.0-0.4) % Absolute Granulocytes 3.11 (1.4-6.9) Basophils # 0.02 (0-0.4) Sodium (137-145) mmol/L Potassium (3.5-5.1) mmol/L Chloride (98-107) mmol/L Carbon Dioxide (22-30) mmol/L Anion Gap (5-15) MEQ/L BUN (7-17) mg/dL Creatinine (0.52-1.04) mg/dL Estimated GFR ML/MIN Glucose (74-106) mg/dL Lactic Acid (0.4-2.0) Calcium (8.4-10.2) mg/dL Total Bilirubin (0.2-1.3) mg/dL AST (14-36) U/L ALT (0-35) U/L Alkaline Phosphatase (38-126) U/L Serum Total Protein (6.3-8.2) g/dL Albumin (3.5-5.0) g/dL Amylase (30-110) U/L Lipase (23-300) U/L Ur Collection Type Urine Color (YELLOW) Urine Appearance (CLEAR) Urine pH (5-6) Ur Specific [place] (1.005-1.025) Urine Protein (Negative) Urine Ketones (NEGATIVE) Urine Blood (0-5) Dilip/ul Urine Nitrite (NEGATIVE) Urine Bilirubin (NEGATIVE) Urine Urobilinogen (0-1) mg/dL Ur Leukocyte Esterase (NEGATIVE) Urine Culture Reflexed (NO) Urine Glucose (NEGATIVE) mg/dL Specimen Received - Progress Progress: improved Progress Note: 04/17/18 06:[address] scan abd/pelvis does not show any acute findings but does show diverticulosis. The labs are within normal limits. The patient feels better after receiving morphine, zofran and phenergan. Pt will be d/c home and will F/ U with PCP. 04/17/18 07:05 - Departure Time of Disposition: 06:58 Departure Disposition: Home Clinical Impression: Irritable bowel syndrome Qualifiers: Irritable bowel syndrome type: unspecified Qualified Code(s): K58.9 - Irritable bowel syndrome without diarrhea Diverticulosis Qualifiers: Diverticulosis site: diverticulosis of large intestine Diverticulosis bleeding : diverticulosis without bleeding Qualified Code(s): K57.30 - Diverticulosis of large intestine without perforation or abscess without bleeding Condition: Stable Critical Care Time: No Referrals: JOANA HAIDER [Primary Care Provider] - Instructions: Irritable Bowel Syndrome (DC), Diverticulosis (DC) Additional Instructions: Follow up with your primary care doctor in the next few days for additional management of irritable bowel syndrome and diverticulosis.
[2018-04-17 05:11] LABS: BASOPHIL % 0.4 % (0.0-0.4); Basophil (Absolute #) 0.02 (0-0.4); Eosinophil % 1.1 % (0.00-5.0); Eosinophil (Absolute #) 0.06 (0-0.5); Granulocyte Absolute (ANC) 3.11 (1.4-6.9); Granulocytes % 56.8 % (36.0-66.0); Hematocrit 42.9 % (35-47); Lymphocyte (Absolute #) 1.88 (1.0-4.6); Lymphocytes % 34.4 % (24.0-44.0); Mean Cell Volume 87.7 fl (78-100); Mean Corpuscular Hemoglobin 30.7 pg (26-32); Mean Platelet Volume 9.5 fl (6-9.5); Monocytes % 7.3 % (0.0-12.0); Platelet Count 287 K/mm3 (150-450); Red Blood Count 4.89 M/mm3 (4.1-5.4); Red Cell Distribution Width 12.7 % (11.5-14.0); White Blood Count 5.5 K/mm3 (4.0-10.5)
[2018-04-17] MEDS ORDERED: MORPHINE SULFATE 4 MG INJ ONE (05:11)
[2018-04-17] MEDS ORDERED: Zofran 4 MG/2 ML VIAL ONE (05:11)
[2018-04-17] MEDS ORDERED: Sodium Chloride 0.9% 1000 ML 1,000 ML ONE (05:11)
[2018-04-17] MEDS: Sodium Chloride 0.9% 1000 ML 1,000 ML IV SCH (05:13)
[2018-04-17] MEDS: MORPHINE SULFATE 4 MG INJ IV ONE (05:14)
[2018-04-17] MEDS: Zofran 4 MG/2 ML VIAL IV ONE (05:14)
[2018-04-17 05:45] LABS: ALBUMIN 4.3 g/dL (3.5-5.0); ALKALINE PHOSPHATASE 134 U/L (38-126); AMYLASE 68 U/L (30-110); ANION GAP 16.8 MEQ/L (5-15); BLOOD UREA NITROGEN 18 mg/dL (7-17); CHLORIDE 109 mmol/L (98-107); Calcium 9.9 mg/dL (8.4-10.2); Carbon Dioxide 23 mmol/L (22-30); Creatinine 1 0.62 mg/dL (0.52-1.04); Glucose 138 mg/dL (74-106); LIPASE 85 U/L (23-300); Potassium 3.9 mmol/L (3.5-5.1); SGOT/AST 26 U/L (14-36); SGPT/ALT 39 U/L (0-35); SODIUM 145 mmol/L (137-145); Total Protein 7.5 g/dL (6.3-8.2)
[2018-04-17] MEDS ORDERED: Phenergan 25 MG INJ ONE (06:01)
[2018-04-17] MEDS: Phenergan 25 MG INJ IM ONE (06:02)
[2018-04-17 06:39] LABS: Appearance CLEAR (CLEAR); Bilirubin NEGATIVE (NEGATIVE); Blood NEGATIVE Ery/ul (0-5); Glucose NEGATIVE (NEGATIVE); Ketones NEGATIVE (NEGATIVE); Leukocyte Esterase NEGATIVE (NEGATIVE); Nitrite NEGATIVE (NEGATIVE); Protein,Urine Dip NEGATIVE (Negative); Specific Gravity 1.015 (1.005-1.025); Urobilinogen NORMAL mg/dL (0-1)
[2018-04-17 07:03] VITALS: BP 180/96; PULSE 66; O2SAT 96
--- NOTE | 2018-04-17 09:18 | XRAY ---
Indication: Periumbilical pain. Nausea. Multiple contiguous axial images obtained through the abdomen and pelvis without contrast as ordered. Comparison: August 20, 2017. Lung bases again demonstrates minimal bibasilar atelectasis/scarring and right base calcified granuloma. Heart is not enlarged. Noncontrasted stomach and bowel loops appear nonobstructed. Again scattered colonic diverticulosis with now mild/early diverticulitis in the proximal sigmoid. No free fluid/air. Stable mild fatty liver, nonobstructing right renal micro-calculus, and cholecystectomy. Remaining liver, pancreas, spleen, adrenal glands, kidneys, ureters, bladder, uterus, and aorta appear unremarkable for noncontrast exam. Osseous structures intact again with mild spinal degenerative changes. No ventral or inguinal hernias. Impression: 1. Again colonic diverticulosis with new focus mild/early sigmoid diverticulitis. No complications 2. Stable fatty liver and nonobstructing right renal micro-calculus. Comment: Preliminary interpretation was made by [facility] who reports "no distinct focal diverticulitis." Case was discussed with Dr. Alvarado in the ER at 0907 hrs. on April 17, 2018. CTDI 23.13
== END 2018-04-17 07:14 | disposition home or self-care (01) ==
LOC: ED 04:46
DX: K58.9 Irritable bowel syndrome, unspecified (principal); K57.30 Diverticulosis of large intestine without perforation or abscess without bleeding; I10 Essential (primary) hypertension; M79.7 Fibromyalgia; M19.90 Unspecified osteoarthritis, unspecified site; K21.9 Gastro-esophageal reflux disease without esophagitis; F41.8 Other specified anxiety disorders
CPT/HCPCS: 36000; 36415; 74176; 80053; 81002; 82150; 83605; 83690; 85025; 96372; 96374; 96375; 99284; J2270; J2405; J2550

== ENCOUNTER 2019-05-13 00:43 | Emergency (ER) | payer OTHER ==
[2019-05-13] MEDS ORDERED: MORPHINE SULFATE 4 MG INJ IV ONE (01:13)
[2019-05-13] MEDS ORDERED: Sodium Chloride 0.9% 1000 ML 1,000 ML IV STA (01:13)
[2019-05-13] MEDS ORDERED: Phenergan 25 MG INJ IM ONE (01:13)
--- NOTE | 2019-05-13 01:13 | ERPHSYRPT ---
- History of Present Illness Time Seen by Provider: 05/13/19 00:55 Historian: patient Exam Limitations: no limitations Patient Subjective Stated Complaint: Right sided flank pain and abdominal pain Triage Nursing Assessment: Patient ambulated back to ED and transferred self to bed. Patient A+O X 3. Patient's skin pink, warm and dry. Patient complains of right sided flank and abdominal dull aching pain 06/15 since 1999. Patient states she is nausaeuated. Patient denies vomiting . Patient's abdomen round and soft with BS X 4. Physician History: 53 y/o obese white female presents with approx 7 hours of right flank pain with radiation to ruq. pt has had a cholecystectomy. pt is nauseated but not vomiting and no diarrhea. pt has had iv morphine in the past without problems. pt has a canvas baster she sees regularly. Timing/Duration: hour(s) (7), gradual onset, worse Quality: sharpness, stabbing Abdominal Pain Onset Location: RUQ, flank Pain Radiation: RUQ, flank Severity of Pain-Max: moderate Severity of Pain-Current: moderate Modifying Factors: Improves With: nothing Associated Symptoms: loss of appetite, nausea, No chest pain, No diarrhea Previous symptoms: same symptoms as today Allergies/Adverse Reactions: iodine Allergy (Verified 05/13/19 00:49) hydromorphone [From Dilaudid] Adverse Reaction (Verified 05/13/19 00:49) Home Medications: raNITIdine HCl [Zantac] 150 mg PO BID 08/20/17 [History] Omeprazole 20 MG [Prilosec 20 mg] 20 mg PO DAILY 02/02/18 [History] Clonazepam 0.5 mg [Klonopin 0.5 MG] 0.5 mg PO DAILY PRN PRN 04/17/18 [ History] Losartan Potassium [Cozaar] 25 mg PO DAILY 05/13/19 [History] Hx Tetanus, Diphtheria Vaccination/Date Given: No Hx Influenza Vaccination/Date Given: Yes Hx Pneumococcal Vaccination/Date Given: No Immunizations Up to Date: Yes - Review of Systems Constitutional: No Symptoms Eyes: No Symptoms Ears, Nose, & Throat: No Symptoms Respiratory: No Symptoms Cardiac: No Symptoms Abdominal/Gastrointestinal: Abdominal Pain, Nausea Genitourinary Symptoms: Flank Pain (right) Musculoskeletal: No Symptoms Skin: No Symptoms Neurological: No Symptoms Psychological: No Symptoms Endocrine: No Symptoms Hematologic/Lymphatic: No Symptoms Immunological/Allergic: No Symptoms All Other Systems: Reviewed and Negative - Past Medical History Pertinent Past Medical History: Yes Neurological History: No Pertinent History ENT History: No Pertinent History Cardiac History: Hypertension Respiratory History: Other Endocrine Medical History: No Pertinent History Musculoskeletal History: Fibromyalgia, Osteoarthritis GI Medical History: Diverticulosis, GERD History: No Pertinent History Psycho-Social History: Anxiety, Depression Female Reproductive Disorders: No Pertinent History Other Medical History: SEASONAL ALLERGIES, OA KNEES, GERD - Past Surgical History Past Surgical History: Yes Neuro Surgical History: No Pertinent History Cardiac: No Pertinent History Respiratory: No Pertinent History Gastrointestinal: Cholecystectomy Genitourinary: Other Musculoskeletal: No Pertinent History Female Surgical History: Section Other Surgical History: x 1 (epicural), stints placed in bilat kidneys - Social History Smoking Status: Never smoker Exposure to second hand smoke: No Alcohol Use: None Drug Use: none Patient Lives Alone: Yes Significant Family History: diabetes, hypertension - Female History Hx Last Menstrual Period: Menopausal Hx Now: No - Nursing Vital Signs Nursing Vital Signs: Initial Vital Signs Temperature 98.7 F 05/13/19 00:53 Pulse Rate 92 H 05/13/19 00:53 Respiratory Rate 18 05/13/19 00:53 Blood Pressure 169/105 05/13/19 00:53 O2 Sat by Pulse Oximetry 97 05/13/19 00:53 Pain Scale Pain Intensity 2 - Physical Exam General Appearance: mild distress, alert, anxiety Eye Exam: PERRL/EOMI, eyes nml inspection Ears, Nose, Throat Exam: normal ENT inspection, moist mucous membranes Neck Exam: normal inspection, non-tender, supple, full range of motion Respiratory Exam: normal breath sounds, lungs clear, airway intact, No chest tenderness, No respiratory distress Cardiovascular Exam: regular rate/rhythm, normal heart sounds, normal peripheral pulses Gastrointestinal/Abdomen Exam: soft, normal bowel sounds, tenderness (right upper quad and right flank), guarding, No rebound Pelvic Exam: not done Rectal Exam: not done Back Exam: normal inspection, normal range of motion, CVA tenderness (right) Extremity Exam: normal inspection, normal range of motion, pelvis stable Neurologic Exam: alert, oriented x 3, cooperative Skin Exam: normal color, warm, dry Lymphatic Exam: No adenopathy SpO2 Interpretation: normal SpO2: 97 O2 Delivery: Room Air - Course Nursing assessment & vital signs reviewed: Yes Ordered Tests: Active Orders 24 hr Category Date Time Status IV Insertion STAT Care 05/13/19 01:13 Active ABDOMEN AND PELVIS W/0 CONTRAS [CT] Stat Exams 05/13/19 01:14 Taken AMYLASE Stat Lab 05/13/19 01:24 Completed CBC W DIFF Stat Lab 05/13/19 01:24 Completed CMP Stat Lab 05/13/19 01:24 Completed LIPASE Stat Lab 05/13/19 01:24 Completed UA W/RFX UR CULTURE Stat Lab 05/13/19 01:24 Completed Medication Summary Discontinued Medications Generic Name Dose Route Start Last Admin Trade Name Freq PRN Reason Stop Dose Admin Sodium Chloride 1,000 mls @ 999 mls/hr 05/13/19 01:13 05/13/19 02:30 Sodium Chloride 0.9% 1000 Ml IV 05/13/19 02:13 Infused .Q1H1M STA Infusion Sodium Chloride Confirm 05/13/19 01:19 Sodium Chloride 0.9% 1000 Ml Administered 05/13/19 01:20 Dose 1,000 mls @ ud .ROUTE .STK-MED ONE Morphine Sulfate 4 mg 05/13/19 01:13 05/13/19 01:26 Morphine Sulfate 4 Mg Inj IV 05/13/19 01:14 4 mg STAT ONE Administration Morphine Sulfate Confirm 05/13/19 01:19 Morphine Sulfate 4 Mg Inj Administered 05/13/19 01:20 Dose 4 mg .ROUTE .STK-MED ONE Promethazine HCl 12.5 mg 05/13/19 01:13 05/13/19 01:30 Phenergan 25 Mg Inj IM 05/13/19 01:14 12.5 mg STAT ONE Administration Promethazine HCl Confirm 05/13/19 01:19 Phenergan 25 Mg Inj Administered 05/13/19 01:20 Dose 25 mg .ROUTE .STK-MED ONE Lab/Rad Data: Laboratory Result Diagrams 05/13/19 01:24 05/13/19 01:24 Laboratory Results 05/13/19 05/13/19 05/13/19 Range/Units 01:24 01:24 01:24 WBC 6.6 (4.0-10.5) K/mm3 RBC 4.45 (4.1-5.4) M/mm3 Hgb 13.5 (12.0-16.0) gm/dl Hct 39.9 (35-47) % MCV 89.7 (78-100) fl MCH 30.3 (26-32) pg MCHC 33.8 (32-36) g/dl RDW 13.0 (11.5-14.0) % Plt Count 282 (150-450) K/mm3 MPV 9.7 H (6-9.5) fl Gran % 43.6 (36.0-66.0) % Eos # (Auto) 0.11 (0-0.5) Absolute Lymphs (auto) 2.89 (1.0-4.6) Absolute Monos (auto) 0.69 (0.0-1.3) Lymphocytes % 43.7 (24.0-44.0) % Monocytes % 10.4 (0.0-12.0) % Eosinophils % 1.7 (0.00-5.0) % Basophils % 0.6 (0.0-0.4) % Absolute Granulocytes 2.89 (1.4-6.9) Basophils # 0.04 (0-0.4) Sodium 142 (137-145) mmol/L Potassium 3.4 L (3.5-5.1) mmol/L Chloride 106 (98-107) mmol/L Carbon Dioxide 25 (22-30) mmol/L Anion Gap 15.0 (5-15) MEQ/L BUN 17 (7-17) mg/dL Creatinine 0.62 (0.52-1.04) mg/dL Estimated GFR > 60.0 ML/MIN Glucose 137 H (74-106) mg/dL Calcium 10.1 (8.4-10.2) mg/dL Total Bilirubin 0.40 (0.2-1.3) mg/dL AST 40 H (14-36) U/L ALT 60 H (0-35) U/L Alkaline Phosphatase 127 H (38-126) U/L Serum Total Protein 8.0 (6.3-8.2) g/dL Albumin 4.5 (3.5-5.0) g/dL Amylase 98 (30-110) U/L Lipase 88 (23-300) U/L Urine Color STRAW (YELLOW) Urine Appearance CLEAR (CLEAR) Urine pH 5.0 (5-6) Ur Specific [place] 1.011 (1.005-1.025) Urine Protein NEGATIVE (Negative) Urine Ketones NEGATIVE (NEGATIVE) Urine Blood SMALL (0-5) Dilip/ul Urine Nitrite NEGATIVE (NEGATIVE) Urine Bilirubin NEGATIVE (NEGATIVE) Urine Urobilinogen NEGATIVE (0-1) mg/dL Ur Leukocyte Esterase NEGATIVE (NEGATIVE) Urine WBC (Auto) 6-10 (0-5) /HPF Urine RBC (Auto) NONE (0-2) /HPF U Epithel Cells (Auto) NONE (FEW) /HPF Urine Bacteria (Auto) NONE (NEGATIVE) /HPF Urine Mucus (Auto) SLIGHT (NEGATIVE) /HPF Urine Culture Reflexed NO (NO) Urine Glucose NEGATIVE (NEGATIVE) mg/dL - Progress Progress: improved Progress Note: 05/13/19 02:54 ct abd/pelvis-negative pt feeling much better. wants to go home - Departure Departure Disposition: Home Clinical Impression: Abdominal pain Condition: Stable Critical Care Time: No Referrals: JOANA HAIDER [Primary Care Provider] - Additional Instructions: drink plenty of clear liquids. call your canvas baster today to arrange follow up appointment
[2019-05-13] MEDS ORDERED: Phenergan 25 MG INJ ONE (01:19)
[2019-05-13] MEDS ORDERED: Sodium Chloride 0.9% 1000 ML 1,000 ML ONE (01:19)
[2019-05-13] MEDS ORDERED: MORPHINE SULFATE 4 MG INJ ONE (01:19)
[2019-05-13 01:24] LABS: BASOPHIL % 0.6 % (0.0-0.4); Basophil (Absolute #) 0.04 (0-0.4); Eosinophil % 1.7 % (0.00-5.0); Eosinophil (Absolute #) 0.11 (0-0.5); Granulocyte Absolute (ANC) 2.89 (1.4-6.9); Granulocytes % 43.6 % (36.0-66.0); Hematocrit 39.9 % (35-47); Hemoglobin 13.5 gm/dl (12.0-16.0); Lymphocyte (Absolute #) 2.89 (1.0-4.6); Lymphocytes % 43.7 % (24.0-44.0); Mean Cell Volume 89.7 fl (78-100); Mean Corpuscular Hemoglobin 30.3 pg (26-32); Mean Corpuscular Hgb Concent. 33.8 g/dl (32-36); Mean Platelet Volume 9.7 fl (6-9.5); Monocyte (Absolute #) 0.69 (0.0-1.3); Monocytes % 10.4 % (0.0-12.0); Platelet Count 282 K/mm3 (150-450); Red Blood Count 4.45 M/mm3 (4.1-5.4); White Blood Count 6.6 K/mm3 (4.0-10.5)
[2019-05-13 02:04] LABS: Appearance CLEAR (CLEAR); Bilirubin NEGATIVE (NEGATIVE); Blood SMALL Ery/ul (0-5); Glucose NEGATIVE (NEGATIVE); Ketones NEGATIVE (NEGATIVE); Leukocyte Esterase NEGATIVE (NEGATIVE); Mucus SLIGHT /HPF (NEGATIVE); Nitrite NEGATIVE (NEGATIVE); Protein,Urine Dip NEGATIVE (Negative); Specific Gravity 1.011 (1.005-1.025); Urobilinogen NEGATIVE mg/dL (0-1)
[2019-05-13 02:20] LABS: ALBUMIN 4.5 g/dL (3.5-5.0); ALKALINE PHOSPHATASE 127 U/L (38-126); AMYLASE 98 U/L (30-110); BLOOD UREA NITROGEN 17 mg/dL (7-17); CHLORIDE 106 mmol/L (98-107); Calcium 10.1 mg/dL (8.4-10.2); Carbon Dioxide 25 mmol/L (22-30); Creatinine 1 0.62 mg/dL (0.52-1.04); Glucose 137 mg/dL (74-106); Potassium 3.4 mmol/L (3.5-5.1); SGOT/AST 40 U/L (14-36); SGPT/ALT 60 U/L (0-35); SODIUM 142 mmol/L (137-145)
[2019-05-13 02:29] VITALS: BP 147/92; PULSE 72
[2019-05-13 02:56] VITALS: O2SAT 97
--- NOTE | 2019-05-13 10:12 | XRAY ---
Exam: CT of the abdomen and pelvis without IV contrast from 05/13/2019. CTDI: 22.99 Comparison: CT of the abdomen and pelvis without IV contrast from 04/17/2018. Indication: 53-year-old female with right flank pain, abdominal pain with radiation to right upper quadrant, nausea without emesis, history of GERD, denies diarrhea. Technique: Non-IV contrast axial images were obtained through the abdomen and pelvis without IV contrast. Reconstructed coronal and sagittal images were created and reviewed. Findings: I again see a prominent calcified granuloma at at the posterior lateral right lung base representing no change from 04/17/2018. There is again diffuse hepatic steatosis. No other focal liver lesion is seen. Surgical clips consistent with prior cholecystectomy are noted. There is mild prominence of the common bile duct which is not an unexpected finding for a patient who is status post cholecystectomy. This is unchanged. The spleen is of normal size and reveals no new mass. The pancreas appears unremarkable and is without inflammatory changes. The adrenal glands are of normal size and configuration. The kidneys are of unremarkable size. I again see a small nonobstructing punctate stone within the upper pole of the right kidney representing no change from 04/17/2018. No new renal calculi or hydronephrosis is seen. Small bilateral extrarenal pelves are seen, larger on the right than left. This is unchanged. The ureters appear of unremarkable diameter and course bilaterally. No ureterolith is seen. The urinary bladder reveals no calcifications within it. The abdominal aorta reveals mild atherosclerotic vascular calcification. Mild mass or calcification is seen within the proximal iliac arteries. No abdominal aortic aneurysm or abnormal retroperitoneal lymphadenopathy is seen. Prominent intraperitoneal fat is seen. No free intraperitoneal air is identified. The anterior abdominal wall appears intact. I see no findings to suggest appendicitis within the right lower quadrant. I again see moderate diverticulosis of the distal descending colon and sigmoid colon. No findings of superimposed diverticulitis are seen. The uterus is anteflexed and tilted slightly to the right of midline. No enlarged pelvic lymph nodes are seen. No other pelvic mass or free intraperitoneal fluid is seen. Minimal air density is seen within the vaginal vault. The urinary bladder reveals no bladder wall thickening. The skeleton reveals no acute fracture or focal bone destruction. There is again mild degenerative disc disease at the L5-S1 interspace level. Other small anterior lateral vertebral endplate spurs are seen within the lower thoracic spine and upper lumbar spine. Impression: 1. I again see a tiny nonobstructing stone within the upper pole of the right kidney representing no change from 04/17/2018. No new renal or ureteral calculi are seen to suggest acute obstructive uropathy. 2. Moderate diverticulosis within distal descending colon and sigmoid colon without evidence of acute diverticulitis. This represents improvement from 04/17/2018. 3. I see no findings to suggest appendicitis. 4. Diffuse hepatic steatosis, evidence of prior cholecystectomy, and a prominent calcified granuloma at the posterior lateral right lung base are again seen. 5. No other acute process is seen within the abdomen or pelvis.
== END 2019-05-13 03:11 | disposition home or self-care (01) ==
LOC: ED 00:43
DX: Z79.899 Other long term (current) drug therapy (principal)
CPT/HCPCS: 36000; 36415; 74176; 80053; 81001; 82150; 83690; 85025; 96360; 96372; 96374; 99284; J2270; J2550

== ENCOUNTER 2019-10-16 22:33 | Emergency (ER) | payer OTHER ==
[2019-10-16] MEDS ORDERED: Sodium Chloride 0.9% 1000 ML 1,000 ML IV STA (23:42)
[2019-10-16] MEDS ORDERED: Zofran 4 MG/2 ML VIAL IV ONE (23:42)
[2019-10-16 23:50] LABS: Absolute Neutrophil Ct (ANC) 3.21 (1.4-6.9); BASOPHIL % 0.6 % (0.0-0.4); Basophil (Absolute #) 0.04 (0-0.4); Eosinophil % 1.8 % (0.00-5.0); Eosinophil (Absolute #) 0.12 (0-0.5); Hematocrit 41.4 % (35-47); Hemoglobin 13.8 gm/dl (12.0-16.0); Lymphocyte (Absolute #) 2.82 (1.0-4.6); Lymphocytes % 41.2 % (24.0-44.0); Mean Cell Volume 89.8 fl (78-100); Mean Corpuscular Hemoglobin 29.9 pg (26-32); Mean Corpuscular Hgb Concent. 33.3 g/dl (32-36); Mean Platelet Volume 9.9 fl (6-9.5); Monocyte (Absolute #) 0.65 (0.0-1.3); Monocytes % 9.5 % (0.0-12.0); Neutrophil % 46.9 % (36.0-66.0); Platelet Count 315 K/mm3 (150-450); Red Blood Count 4.61 M/mm3 (4.1-5.4); Red Cell Distribution Width 13.1 % (11.5-14.0); White Blood Count 6.8 K/mm3 (4.0-10.5)
[2019-10-17 00:01] LABS: ALBUMIN 4.5 g/dL (3.5-5.0); ALKALINE PHOSPHATASE 119 U/L (38-126); AMYLASE 97 U/L (30-110); ANION GAP 15.2 MEQ/L (5-15); BLOOD UREA NITROGEN 16 mg/dL (7-17); CHLORIDE 107 mmol/L (98-107); Calcium 9.9 mg/dL (8.4-10.2); Carbon Dioxide 26 mmol/L (22-30); Creatinine 1 0.62 mg/dL (0.52-1.04); Glucose 177 mg/dL (74-106); LIPASE 84 U/L (23-300); Potassium 3.6 mmol/L (3.5-5.1); SGOT/AST 37 U/L (14-36); SGPT/ALT 59 U/L (0-35); SODIUM 145 mmol/L (137-145); Total Protein 8.4 g/dL (6.3-8.2)
[2019-10-17 00:01] LABS: Appearance CLEAR (CLEAR); Bacteria RARE /HPF (NEGATIVE); Bilirubin NEGATIVE (NEGATIVE); Blood SMALL Ery/ul (0-5); Epithelial Cells RARE /HPF (FEW); Glucose NEGATIVE (NEGATIVE); Ketones NEGATIVE (NEGATIVE); Leukocyte Esterase NEGATIVE (NEGATIVE); Nitrite NEGATIVE (NEGATIVE); Protein,Urine Dip NEGATIVE (Negative); Specific Gravity 1.003 (1.005-1.025); Urobilinogen NEGATIVE mg/dL (0-1); WBC 0-2 /HPF (0-5)
[2019-10-17 00:07] LABS: Lactic Acid 2.3 (0.4-2.0)
--- NOTE | 2019-10-17 00:16 | ERPHSYRPT ---
- History of Present Illness Time Seen by Provider: 10/16/19 23:00 Source: patient, family Patient Subjective Stated Complaint: PT ARRIVED IN ER FEELING SOB, PT STATES SHE FEELSTHAT SHE CANT BREATH WELL AND HAS PAIN IN CHEST AND ABDOMEN THAT SHE HAS HAD SINCE 5PM TONIGHT. PT HAS SOME NAUSEA WITH THESE SYMPTOMS. Triage Nursing Assessment: PT ALERT AND ORIENTED, PT STATES THAT SHE FEELS SHAKY AND GENERALLY NOT WELL. RARTES PAIN IN CHEST AND ABDOMEN 7/10 Physician History: 54 y/o white female presents with multiple complaints. pt has anxiety issues. pt states doesnt feel well. described as mild left chest pressure without radiation, achiness generalized abd distension and generalized body aches. had a couple loose stools today. pt drove herself into ED and cannot get a ride home. 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) Severity: mild Associated Symptoms: nausea, abdominal pain (mild diffuse), chest pain (mild left ant), No shortness of breath, No headaches, No loss of appetite, No weakness Allergies/Adverse Reactions: iodine Allergy (Verified 10/16/19 22:45) hydromorphone [From Dilaudid] Adverse Reaction (Verified 10/16/19 22:45) Home Medications: raNITIdine HCl [Zantac] 150 mg PO BID 08/20/17 [History] Omeprazole 20 MG [Prilosec 20 mg] 20 mg PO DAILY 02/02/18 [History] Clonazepam 0.5 mg [Klonopin 0.5 MG] 0.5 mg PO DAILY PRN PRN 04/17/18 [ History] Losartan Potassium [Cozaar] 25 mg PO DAILY 05/13/19 [History] Hx Tetanus, Diphtheria Vaccination/Date Given: No Hx Influenza Vaccination/Date Given: Yes Hx Pneumococcal Vaccination/Date Given: No - Review of Systems Constitutional: No Symptoms Eyes: No Symptoms Ears, Nose, & Throat: No Symptoms Respiratory: No Symptoms Cardiac: Chest Pain Abdominal/Gastrointestinal: Abdominal Pain, Nausea, Diarrhea, No Vomiting Genitourinary Symptoms: No Symptoms Musculoskeletal: Arthralgias, Myalgias Skin: No Symptoms Neurological: No Symptoms Psychological: No Symptoms Endocrine: No Symptoms Hematologic/Lymphatic: No Symptoms Immunological/Allergic: No Symptoms All Other Systems: Reviewed and Negative - Past Medical History Pertinent Past Medical History: Yes Neurological History: No Pertinent History ENT History: No Pertinent History Cardiac History: Hypertension Respiratory History: Other Endocrine Medical History: No Pertinent History Musculoskeletal History: Fibromyalgia, Osteoarthritis GI Medical History: Diverticulosis, GERD History: No Pertinent History Psycho-Social History: Anxiety, Depression Female Reproductive Disorders: No Pertinent History Other Medical History: SEASONAL ALLERGIES, OA KNEES, GERD - Past Surgical History Past Surgical History: Yes Neuro Surgical History: No Pertinent History Cardiac: No Pertinent History Respiratory: No Pertinent History Gastrointestinal: Cholecystectomy Genitourinary: Other Musculoskeletal: No Pertinent History Female Surgical History: Section Other Surgical History: x 1 (epicural), stints placed in bilat kidneys - Social History Smoking Status: Never smoker Exposure to second hand smoke: No Alcohol Use: None Drug Use: none Patient Lives Alone: Yes Significant Family History: diabetes, hypertension - Female History Hx Now: No - Nursing Vital Signs Nursing Vital Signs: Initial Vital Signs Temperature 98.3 F 10/16/19 22:35 Pulse Rate 96 H 10/16/19 22:35 Respiratory Rate 20 10/16/19 22:35 Blood Pressure 183/97 10/16/19 22:35 O2 Sat by Pulse Oximetry 99 10/16/19 22:35 Pain Scale Pain Intensity 7 - Physical Exam General Appearance: mild distress, alert, anxiety Eye Exam: PERRL/EOMI, eyes nml inspection Ears, Nose, Throat Exam: normal ENT inspection, moist mucous membranes Neck Exam: normal inspection, non-tender, supple, full range of motion Respiratory Exam: normal breath sounds, chest tenderness, lungs clear, airway intact, No respiratory distress Cardiovascular Exam: regular rate/rhythm, normal heart sounds, normal peripheral pulses Gastrointestinal/Abdomen Exam: normal bowel sounds, tenderness, distention ( mild diffuse), No rebound Pelvic Exam: not done Rectal Exam: not done Back Exam: normal inspection, normal range of motion, No CVA tenderness, No vertebral tenderness Extremity Exam: normal inspection, normal range of motion, pelvis stable Neurologic Exam: alert, oriented x 3, 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 no changes when compared to ekg dated 08/22/19) Ordered Tests: Active Orders 24 hr Category Date Time Status ACCUCHECK [Accucheck] STAT Care 10/16/19 22:59 Active Manager Trust STAT Care 10/16/19 22:59 Active EKG-ER Only STAT Care 10/16/19 22:58 Active IV Insertion STAT Care 10/16/19 22:58 Active Pulse Oximetry (ED) STAT Care 10/16/19 22:59 Active ABDOMEN AND PELVIS W/0 CONTRAS [CT] Stat Exams 10/16/19 23:44 Taken AMYLASE Stat Lab 10/16/19 22:50 Completed CBC W DIFF Stat Lab 10/16/19 22:50 Completed CMP Stat Lab 10/16/19 22:50 Completed LIPASE Stat Lab 10/16/19 22:50 Completed Lactic Acid Stat Lab 10/16/19 23:42 Completed Lactic Acid Stat Lab 10/17/19 02:07 Ordered TROPONIN Q3H Lab 10/16/19 22:50 Completed TROPONIN Q3H Lab 10/17/19 02:45 Ordered TROPONIN Q3H Lab 10/17/19 05:45 Ordered TROPONIN Q3H Lab 10/17/19 08:45 Ordered TROPONIN Q3H Lab 10/17/19 11:45 Ordered UA W/RFX UR CULTURE Stat Lab 10/16/19 23:45 Completed Medication Summary Discontinued Medications Generic Name Dose Route Start Last Admin Trade Name Freq PRN Reason Stop Dose Admin Sodium Chloride 1,000 mls @ 999 mls/hr 10/16/19 23:42 10/17/19 01:00 Sodium Chloride 0.9% 1000 Ml IV 10/17/19 00:42 999 mls/hr .Q1H1M STA Administration Sodium Chloride Confirm 10/17/19 00:57 Sodium Chloride 0.9% 1000 Ml Administered 10/17/19 00:58 Dose 1,000 mls @ ud .ROUTE .STK-MED ONE Morphine Sulfate 4 mg 10/17/19 00:41 10/17/19 01:00 Morphine Sulfate 4 Mg Inj IV 10/17/19 00:42 4 mg STAT ONE Administration Morphine Sulfate Confirm 10/17/19 00:57 Morphine Sulfate 4 Mg Inj Administered 10/17/19 00:58 Dose 4 mg .ROUTE .STK-MED ONE Ondansetron HCl 4 mg 10/16/19 23:42 10/17/19 00:59 Zofran 4 Mg/2 Ml Vial IV 10/16/19 23:43 4 mg STAT ONE Administration Ondansetron HCl Confirm 10/17/19 00:56 Zofran 4 Mg/2 Ml Vial Administered 10/17/19 00:57 Dose 4 mg .ROUTE .STK-MED ONE Promethazine HCl 12.5 mg 10/17/19 00:58 Phenergan 25 Mg Inj IM 10/17/19 00:59 STAT ONE Promethazine HCl Confirm 10/17/19 01:40 Phenergan 25 Mg Inj Administered 10/17/19 01:41 Dose 25 mg .ROUTE .STK-MED ONE Lab/Rad Data: Laboratory Result Diagrams 10/16/19 22:50 10/16/19 22:50 Laboratory Results 10/17/19 10/17/19 10/16/19 Range/Units 01:10 00:00 23:45 WBC (4.0-10.5) K/mm3 RBC (4.1-5.4) M/mm3 Hgb (12.0-16.0) gm/dl Hct (35-47) % MCV (78-100) fl MCH (26-32) pg MCHC (32-36) g/dl RDW (11.5-14.0) % Plt Count (150-450) K/mm3 MPV (6-9.5) fl Gran % (36.0-66.0) % Eos # (Auto) (0-0.5) Absolute Lymphs (auto) (1.0-4.6) Absolute Monos (auto) (0.0-1.3) Lymphocytes % (24.0-44.0) % Monocytes % (0.0-12.0) % Eosinophils % (0.00-5.0) % Basophils % (0.0-0.4) % Absolute Granulocytes (1.4-6.9) Basophils # (0-0.4) Sodium (137-145) mmol/L Potassium (3.5-5.1) mmol/L Chloride (98-107) mmol/L Carbon Dioxide (22-30) mmol/L Anion Gap (5-15) MEQ/L BUN (7-17) mg/dL Creatinine (0.52-1.04) mg/dL Estimated GFR ML/MIN Glucose (74-106) mg/dL Lactic Acid 2.3 H (0.4-2.0) Calcium (8.4-10.2) mg/dL Total Bilirubin (0.2-1.3) mg/dL AST (14-36) U/L ALT (0-35) U/L Alkaline Phosphatase (38-126) U/L Troponin I (0.000-0.034) ng/mL Serum Total Protein (6.3-8.2) g/dL Albumin (3.5-5.0) g/dL Amylase (30-110) U/L Lipase (23-300) U/L Urine Color STRAW (YELLOW) Urine Appearance CLEAR (CLEAR) Urine pH 6.0 (5-6) Ur Specific [place] 1.003 (1.005-1.025) Urine Protein NEGATIVE (Negative) Urine Ketones NEGATIVE (NEGATIVE) Urine Blood SMALL (0-5) Dilip/ul Urine Nitrite NEGATIVE (NEGATIVE) Urine Bilirubin NEGATIVE (NEGATIVE) Urine Urobilinogen NEGATIVE (0-1) mg/dL Ur Leukocyte Esterase NEGATIVE (NEGATIVE) Urine WBC (Auto) 0-2 (0-5) /HPF U Epithel Cells (Auto) RARE (FEW) /HPF Urine Bacteria (Auto) RARE (NEGATIVE) /HPF Urine Culture Reflexed NO (NO) Urine Glucose NEGATIVE (NEGATIVE) mg/dL Influenza Type A Ag NEGATIVE (NEGATIVE) Influenza Type B Ag NEGATIVE (NEGATIVE) RSV (PCR) NEGATIVE (Negative) 10/16/19 10/16/19 10/16/19 Range/Units 22:50 22:50 22:50 WBC 6.8 (4.0-10.5) K/mm3 RBC 4.61 (4.1-5.4) M/mm3 Hgb 13.8 (12.0-16.0) gm/dl Hct 41.4 (35-47) % MCV 89.8 (78-100) fl MCH 29.9 (26-32) pg MCHC 33.3 (32-36) g/dl RDW 13.1 (11.5-14.0) % Plt Count 315 (150-450) K/mm3 MPV 9.9 H (6-9.5) fl Gran % 46.9 (36.0-66.0) % Eos # (Auto) 0.12 (0-0.5) Absolute Lymphs (auto) 2.82 (1.0-4.6) Absolute Monos (auto) 0.65 (0.0-1.3) Lymphocytes % 41.2 (24.0-44.0) % Monocytes % 9.5 (0.0-12.0) % Eosinophils % 1.8 (0.00-5.0) % Basophils % 0.6 (0.0-0.4) % Absolute Granulocytes 3.21 (1.4-6.9) Basophils # 0.04 (0-0.4) Sodium 145 (137-145) mmol/L Potassium 3.6 (3.5-5.1) mmol/L Chloride 107 (98-107) mmol/L Carbon Dioxide 26 (22-30) mmol/L Anion Gap 15.2 H (5-15) MEQ/L BUN 16 (7-17) mg/dL Creatinine 0.62 (0.52-1.04) mg/dL Estimated GFR > 60.0 ML/MIN Glucose 177 H (74-106) mg/dL Lactic Acid (0.4-2.0) Calcium 9.9 (8.4-10.2) mg/dL Total Bilirubin 0.30 (0.2-1.3) mg/dL AST 37 H (14-36) U/L ALT 59 H (0-35) U/L Alkaline Phosphatase 119 (38-126) U/L Troponin I < 0.012 (0.000-0.034) ng/mL Serum Total Protein 8.4 H (6.3-8.2) g/dL Albumin 4.5 (3.5-5.0) g/dL Amylase 97 (30-110) U/L Lipase 84 (23-300) U/L Urine Color (YELLOW) Urine Appearance (CLEAR) Urine pH (5-6) Ur Specific [place] (1.005-1.025) Urine Protein (Negative) Urine Ketones (NEGATIVE) Urine Blood (0-5) Dilip/ul Urine Nitrite (NEGATIVE) Urine Bilirubin (NEGATIVE) Urine Urobilinogen (0-1) mg/dL Ur Leukocyte Esterase (NEGATIVE) Urine WBC (Auto) (0-5) /HPF U Epithel Cells (Auto) (FEW) /HPF Urine Bacteria (Auto) (NEGATIVE) /HPF Urine Culture Reflexed (NO) Urine Glucose (NEGATIVE) mg/dL Influenza Type A Ag (NEGATIVE) Influenza Type B Ag (NEGATIVE) RSV (PCR) (Negative) - Progress Progress: improved Progress Note: 10/17/19 00:54 ct abd/pelvis-no acute process. Counseled pt/family regarding: lab results, diagnosis, need for follow-up, rad results - Departure Departure Disposition: Home Clinical Impression: Abdominal pain Condition: Stable Critical Care Time: No Referrals: JOANA HAIDER [Primary Care Provider] - Additional Instructions: drink plenty of clear liquids. follow up with primary doctor for further management Prescriptions: Promethazine HCl 25 mg [Phenergan 25 mg] 25 mg PO Q8H PRN PRN #10 tablet PRN Reason: Nausea/Vomiting
[2019-10-17] MEDS ORDERED: MORPHINE SULFATE 4 MG INJ IV ONE (00:41)
[2019-10-17] MEDS ORDERED: Zofran 4 MG/2 ML VIAL ONE (00:56)
[2019-10-17] MEDS ORDERED: Sodium Chloride 0.9% 1000 ML 1,000 ML ONE (00:57)
[2019-10-17] MEDS ORDERED: MORPHINE SULFATE 4 MG INJ ONE (00:57)
[2019-10-17] MEDS ORDERED: Phenergan 25 MG INJ IM ONE (00:58)
[2019-10-17] MEDS ORDERED: Phenergan 25 MG INJ ONE (01:40)
[2019-10-17 02:02] LABS: INFLUENZA A NEGATIVE (NEGATIVE); INFLUENZA B NEGATIVE (NEGATIVE); RESPIRATORY SYNCTIAL VIRUS NEGATIVE (Negative)
[2019-10-17 02:11] VITALS: O2SAT 96
[2019-10-17 02:20] VITALS: BP 150/71; PULSE 69
--- NOTE | 2019-10-17 08:59 | XRAY ---
Indication: Chronic abdomen pain. History IBS, GERD, and diverticulosis. Multiple contiguous axial images obtained through the abdomen and pelvis without contrast as ordered. Comparison: May 13, 2019. Lung bases demonstrates stable right lower lobe calcified granuloma and 6 mm left lower lobe noncalcified nodule. No infiltrate or effusion. Heart is not enlarged. Distal esophagus again demonstrates mild circumferential wall thickening possible reflux esophagitis. Stomach is distended with food/fluid. Noncontrasted bowel loops appear nonobstructed. Normal appendix. There is mild scattered colonic fecal debris throughout, greatest in the ascending and transverse colon. Stable descending/sigmoid diverticulosis, nonobstructing right renal micro-calculus, fatty liver, and cholecystectomy. No free fluid/air. Remaining liver, pancreas, spleen, adrenal glands, kidneys, ureters, bladder, uterus, and aorta appear unremarkable for noncontrast exam. Osseous structures intact again with mild degenerative changes throughout the thoracolumbar spine. Impression: 1. Mild fecal stasis without obstruction. Stable colonic diverticulosis without diverticulitis. 2. Stable distal esophageal circumferential wall thickening, possible reflux esophagitis. 3. Stable fatty liver, nonobstructing right renal micro-calculus, and bibasilar calcified/noncalcified lung nodules. 4. No new/acute intra-abdominal/pelvic abnormalities on this noncontrast exam. Comment: Preliminary interpretation was made by [facility]. No critical discrepancy. CT DI 9.40
== END 2019-10-17 02:25 | disposition home or self-care (01) ==
LOC: ED 22:33
DX: R10.9 Unspecified abdominal pain (principal)
CPT/HCPCS: 36000; 36415; 74176; 80053; 81001; 82150; 82962; 83605; 83690; 84484; 85025; 87631; 93005; 93041; 94760; 96374; 96375; 99284; J2270; J2405; J2550

== ENCOUNTER 2020-08-17 21:18 | Emergency (ER) | payer OTHER ==
[2020-08-17] MEDS ORDERED: TORAdol 30 mg Injection IV ONE (22:10)
[2020-08-17] MEDS ORDERED: Phenergan 25 MG INJ IV ONE (22:10)
[2020-08-17] MEDS ORDERED: Phenergan 25 MG INJ ONE (22:14)
[2020-08-17] MEDS ORDERED: TORAdol 30 mg Injection ONE (22:14)
[2020-08-17] MEDS ORDERED: Phenergan 25 MG INJ IM ONE (22:16)
[2020-08-17 22:45] LABS: Absolute Neutrophil Ct (ANC) 5.36 (1.4-6.9); BASOPHIL % 0.2 % (0.0-0.4); Basophil (Absolute #) 0.02 (0-0.4); Eosinophil % 0.7 % (0.00-5.0); Eosinophil (Absolute #) 0.06 (0-0.5); Hemoglobin 14.1 gm/dl (12.0-16.0); Lymphocyte (Absolute #) 2.11 (1.0-4.6); Lymphocytes % 25.6 % (24.0-44.0); Mean Cell Volume 88.6 fl (78-100); Mean Corpuscular Hemoglobin 29.7 pg (26-32); Mean Corpuscular Hgb Concent. 33.6 g/dl (32-36); Mean Platelet Volume 9.4 fl (7.5-11.0); Monocyte (Absolute #) 0.69 (0.0-1.3); Monocytes % 8.4 % (0.0-12.0); Neutrophil % 65.1 % (36.0-66.0); Platelet Count 277 K/mm3 (150-450); Red Blood Count 4.74 M/mm3 (4.1-5.4); White Blood Count 8.2 K/mm3 (4.0-10.5)
[2020-08-17] MEDS ORDERED: Zofran 4 MG/2 ML VIAL IV ONE (22:46)
[2020-08-17] MEDS ORDERED: Zofran 4 MG/2 ML VIAL ONE (22:47)
--- NOTE | 2020-08-17 22:52 | ERPHSYRPT ---
- History of Present Illness Source: patient Exam Limitations: other (Poor historian) Patient Subjective Stated Complaint: pt states "I just don't feel goo." "I have a terrible headache and my stomach hurt." "I feel like I could throw up." Triage Nursing Assessment: pt came into the er via ambulance; pt is axo x4; c/o nausea; states 7/10 pain to head; pt is yelling out in pain; states "I don't feel goo"; pupils are 4mm and PERRL; N/V/D; hyperactive bowel sounds in all quads; clear lung sounds in lobes; hypertension; pt received 4 mg of zofran via ems; blood sugar in route 180 Physician History: 54 yo wf per EMs w [facility]/N-V/abdominal pain x2hr. Pt has a h/o MGHA and states pain 8/10. She denies hematemesis/diarrhea/fever/trauma. Timing/Duration: hour(s) (2hours) Quality: tightness, other Head Pain Location: global Severity of Pain-Max: severe Severity of Pain-Current: severe Recent Head Trauma: no recent headache/trauma, chronic headaches Modifying Factors: Improves With: exposure to light, movement Associated Symptoms: nausea/vomiting, sensitive to light, weakness, No confusion, No dizziness, No fatigue, No facial pain, No fever/chills, No flushing, No light-headedness, No loss of consciousness, No nasal congestion, No nasal drainage, No neck pain, No numbness in legs/feet, No rash, No sweating, No scotoma, No seizures, No sinus infection, No speech problems, No stiff neck, No trouble walking, No vision changes, No visual disturbance Previous symptoms: same symptoms as today Allergies/Adverse Reactions: iodine Allergy (Verified 08/17/20 21:20) hydromorphone [From Dilaudid] Adverse Reaction (Verified 08/17/20 21:20) Home Medications: Omeprazole 20 MG [Prilosec 20 mg] 20 mg PO DAILY 02/02/18 [History] Clonazepam 0.5 mg [Klonopin 0.5 MG] 0.5 mg PO DAILY PRN PRN 04/17/18 [History] Losartan Potassium [Cozaar] 50 mg PO BID 05/13/19 [History] Cyanocobalamin/Folic AC/Vit B6 [Folbee Tablet] 1 tab PO DAILY 08/17/20 [History] Escitalopram Oxalate 10 mg [Lexapro 10 MG] 10 mg PO DAILY 08/17/20 [History] Hx Tetanus, Diphtheria Vaccination/Date Given: No Hx Influenza Vaccination/Date Given: No Hx Pneumococcal Vaccination/Date Given: No Travel Risk - International Travel Have you traveled outside of the country in past 3 weeks: No - Coronavirus Screening Are you exhibiting any of the following symptoms?: Yes Symptoms: Vomiting/Diarrhea, Headaches/Body Aches/Fatigue Close contact with a COVID-19 positive Pt in past 14-21 Days: No - Review of Systems Constitutional: No Symptoms Eyes: No Symptoms Ears, Nose, & Throat: No Symptoms Respiratory: No Symptoms Cardiac: No Symptoms Abdominal/Gastrointestinal: Abdominal Pain, Nausea, Vomiting, No Diarrhea, No Hematemesis, No Hematochezia, No Melena Genitourinary Symptoms: No Symptoms Musculoskeletal: No Symptoms Skin: No Symptoms Neurological: Headache, No Dizziness, No Focal Weakness, No Gait Changes, No Irritability, No Lethargy, No Paralysis, No Parasthesia, No Seizure, No Sensory Changes, No Speech Changes, No Tics, No Tremors, No Vertigo Psychological: No Symptoms Endocrine: No Symptoms Hematologic/Lymphatic: No Symptoms Immunological/Allergic: No Symptoms - Past Medical History Pertinent Past Medical History: Yes Neurological History: No Pertinent History ENT History: No Pertinent History Cardiac History: Hypertension Respiratory History: No Pertinent History Endocrine Medical History: No Pertinent History Musculoskeletal History: Osteoarthritis GI Medical History: Diverticulosis, GERD History: No Pertinent History Psycho-Social History: Anxiety, Depression Female Reproductive Disorders: No Pertinent History Other Medical History: HX OF TENDONITIS/ARTHRITIS RIGHT ELBOW, BILATERAL SCIATICA, AND HX OF 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 ALSO HAD SURGERY LEFT THUMB FOR ARTHRITIS. HX OF GERD - Past Surgical History Past Surgical History: Yes Neuro Surgical History: No Pertinent History Cardiac: No Pertinent History Respiratory: No Pertinent History Gastrointestinal: Cholecystectomy Genitourinary: Other Musculoskeletal: No Pertinent History Female Surgical History: Section Other Surgical History: x 1 (epicural), stints placed in bilat kidneys - Social History Smoking Status: Never smoker Exposure to second hand smoke: No Alcohol Use: None Drug Use: none Patient Lives Alone: No Significant Family History: no pertinent family hx, diabetes, hypertension - Female History Hx Now: No - Nursing Vital Signs Nursing Vital Signs: Initial Vital Signs Temperature 97.4 F 08/17/20 21:24 Pulse Rate 78 08/17/20 21:24 Respiratory Rate 18 08/17/20 21:24 Blood Pressure 178/92 08/17/20 21:24 O2 Sat by Pulse Oximetry 98 08/17/20 21:24 Pain Scale Pain Intensity 0 - Physical Exam General Appearance: no apparent distress Eye Exam: PERRL/EOMI, eyes nml inspection Ears, Nose, Throat Exam: normal ENT inspection, TMs normal, pharynx normal Neck Exam: normal inspection, non-tender, supple, full range of motion, No menin gismus, No mass, No Brudzinski, No Kernig's, No carotid bruit Respiratory Exam: normal breath sounds, lungs clear, airway intact, No respiratory distress Cardiovascular Exam: regular rate/rhythm, normal heart sounds, normal peripheral pulses, No murmur Gastrointestinal/Abdominal Exam: soft, normal bowel sounds, tenderness (Diffuse TTP) Back Exam: normal inspection, normal range of motion, No CVA tenderness Extremity Exam: normal inspection, normal range of motion 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, 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: normal hearing, normal speech, PERRL, No abnormal gag reflex Coordination/Gait Exam: normal gait, normal cerebellar function, negative Romberg's sign Motor/Sensory Exam: no motor deficit, no sensory deficit, no pronator drift, negative Babinski's sign DTR Exam: bicep (R): 2+, bicep (L): 2+, knee (R): 2+, knee (L): 2+ Skin Exam: normal color, warm, dry, No rash Lymphatic Exam: No adenopathy SpO2 Interpretation: normal SpO2: 98 O2 Delivery: Room Air - Course Nursing assessment & vital signs reviewed: Yes Ordered Tests: Active Orders 24 hr Category Date Time Status AMYLASE Stat Lab 08/17/20 22:45 Completed CBC W DIFF Stat Lab 08/17/20 22:45 Completed CMP Stat Lab 08/17/20 22:45 Completed LIPASE Stat Lab 08/17/20 22:45 Completed UA W/RFX UR CULTURE Stat Lab 08/17/20 22:51 Completed Urine Triage Profile Stat Lab 08/17/20 22:51 Completed Medication Summary Discontinued Medications Generic Name Dose Route Start Last Admin Trade Name Nuria PRN Reason Stop Dose Admin Ketorolac Tromethamine 30 mg 08/17/20 22:10 08/17/20 22:15 Toradol 30 Mg Injection IV 08/17/20 22:11 30 mg STAT ONE Administration Ketorolac Tromethamine Confirm 08/17/20 22:14 Toradol 30 Mg Injection Administered 08/17/20 22:15 Dose 30 mg .ROUTE .STK-MED ONE Ondansetron HCl 4 mg 08/17/20 22:46 08/17/20 22:51 Zofran 4 Mg/2 Ml Vial IV 08/17/20 22:47 4 mg STAT ONE Administration Ondansetron HCl Confirm 08/17/20 22:47 Zofran 4 Mg/2 Ml Vial Administered 08/17/20 22:48 Dose 4 mg .ROUTE .STK-MED ONE Promethazine HCl 25 mg 08/17/20 22:10 08/17/20 22:16 Phenergan 25 Mg Inj IV 08/17/20 22:11 Not Given STAT ONE Promethazine HCl Confirm 08/17/20 22:14 Phenergan 25 Mg Inj Administered 08/17/20 22:15 Dose 25 mg .ROUTE .STK-MED ONE Promethazine HCl 25 mg 08/17/20 22:16 08/17/20 22:18 Phenergan 25 Mg Inj IM 08/17/20 22:17 25 mg STAT ONE Administration Lab/Rad Data: Laboratory Result Diagrams 08/17/20 22:45 08/17/20 22:45 Laboratory Results 08/17/20 08/17/20 08/17/20 Range/Units 22:51 22:51 22:45 WBC (4.0-10.5) K/mm3 RBC (4.1-5.4) M/mm3 Hgb (12.0-16.0) gm/dl Hct (35-47) % MCV (78-100) fl MCH (26-32) pg MCHC (32-36) g/dl RDW (11.5-14.0) % Plt Count (150-450) K/mm3 MPV (7.5-11.0) fl Gran % (36.0-66.0) % Eos # (Auto) (0-0.5) Absolute Lymphs (auto) (1.0-4.6) Absolute Monos (auto) (0.0-1.3) Lymphocytes % (24.0-44.0) % Monocytes % (0.0-12.0) % Eosinophils % (0.00-5.0) % Basophils % (0.0-0.4) % Absolute Granulocytes (1.4-6.9) Basophils # (0-0.4) Sodium 139 (137-145) mmol/L Potassium 3.4 L (3.5-5.1) mmol/L Chloride 105 (98-107) mmol/L Carbon Dioxide 26 (22-30) mmol/L Anion Gap 11.2 (5-15) MEQ/L BUN 15 (7-17) mg/dL Creatinine 0.69 (0.52-1.04) mg/dL Estimated GFR > 60.0 ML/MIN Glucose 141 H (74-106) mg/dL Calcium 9.5 (8.4-10.2) mg/dL Total Bilirubin 0.30 (0.2-1.3) mg/dL AST 37 H (14-36) U/L ALT 62 H (0-35) U/L Alkaline Phosphatase 114 (38-126) U/L Serum Total Protein 8.5 H (6.3-8.2) g/dL Albumin 4.7 (3.5-5.0) g/dL Amylase 111 H (30-110) U/L Lipase 92 (23-300) U/L Urine Color YELLOW (YELLOW) Urine Appearance CLEAR (CLEAR) Urine pH 6.0 (5-6) Ur Specific Dickens 1.017 (1.005-1.025) Urine Protein 30 (Negative) Urine Ketones NEGATIVE (NEGATIVE) Urine Blood SMALL (0-5) Dilip/ul Urine Nitrite NEGATIVE (NEGATIVE) Urine Bilirubin NEGATIVE (NEGATIVE) Urine Urobilinogen NEGATIVE (0-1) mg/dL Ur Leukocyte Esterase NEGATIVE (NEGATIVE) Urine WBC (Auto) 0-2 (0-5) /HPF Urine RBC (Auto) 0-2 (0-2) /HPF U Hyaline Cast (Auto) 0-2 (0-2) /LPF U Epithel Cells (Auto) NONE (FEW) /HPF Urine Bacteria (Auto) NONE (NEGATIVE) /HPF Urine Mucus (Auto) SLIGHT (NEGATIVE) /HPF Urine Culture Reflexed NO (NO) Urine Glucose NEGATIVE (NEGATIVE) mg/dL Urine Opiates Level NEGATIVE (NEGATIVE) Ur Methadone NEGATIVE (NEGATIVE) Urine Barbiturates NEGATIVE (NEGATIVE) Ur Phencyclidine (PCP) NEGATIVE (NEGATIVE) Urine Amphetamine NEGATIVE (NEGATIVE) U Benzodiazepine Level NEGATIVE (NEGATIVE) Urine Cocaine NEGATIVE (NEGATIVE) Urine Marijuana (THC) NEGATIVE (NEGATIVE) 08/17/20 Range/Units 22:45 WBC 8.2 (4.0-10.5) K/mm3 RBC 4.74 (4.1-5.4) M/mm3 Hgb 14.1 (12.0-16.0) gm/dl Hct 42.0 (35-47) % MCV 88.6 (78-100) fl MCH 29.7 (26-32) pg MCHC 33.6 (32-36) g/dl RDW 13.0 (11.5-14.0) % Plt Count 277 (150-450) K/mm3 MPV 9.4 (7.5-11.0) fl Gran % 65.1 (36.0-66.0) % Eos # (Auto) 0.06 (0-0.5) Absolute Lymphs (auto) 2.11 (1.0-4.6) Absolute Monos (auto) 0.69 (0.0-1.3) Lymphocytes % 25.6 (24.0-44.0) % Monocytes % 8.4 (0.0-12.0) % Eosinophils % 0.7 (0.00-5.0) % Basophils % 0.2 (0.0-0.4) % Absolute Granulocytes 5.36 (1.4-6.9) Basophils # 0.02 (0-0.4) Sodium (137-145) mmol/L Potassium (3.5-5.1) mmol/L Chloride (98-107) mmol/L Carbon Dioxide (22-30) mmol/L Anion Gap (5-15) MEQ/L BUN (7-17) mg/dL Creatinine (0.52-1.04) mg/dL Estimated GFR ML/MIN Glucose (74-106) mg/dL Calcium (8.4-10.2) mg/dL Total Bilirubin (0.2-1.3) mg/dL AST (14-36) U/L ALT (0-35) U/L Alkaline Phosphatase (38-126) U/L Serum Total Protein (6.3-8.2) g/dL Albumin (3.5-5.0) g/dL Amylase (30-110) U/L Lipase (23-300) U/L Urine Color (YELLOW) Urine Appearance (CLEAR) Urine pH (5-6) Ur Specific Dickens (1.005-1.025) Urine Protein (Negative) Urine Ketones (NEGATIVE) Urine Blood (0-5) Dilip/ul Urine Nitrite (NEGATIVE) Urine Bilirubin (NEGATIVE) Urine Urobilinogen (0-1) mg/dL Ur Leukocyte Esterase (NEGATIVE) Urine WBC (Auto) (0-5) /HPF Urine RBC (Auto) (0-2) /HPF U Hyaline Cast (Auto) (0-2) /LPF U Epithel Cells (Auto) (FEW) /HPF Urine Bacteria (Auto) (NEGATIVE) /HPF Urine Mucus (Auto) (NEGATIVE) /HPF Urine Culture Reflexed (NO) Urine Glucose (NEGATIVE) mg/dL Urine Opiates Level (NEGATIVE) Ur Methadone (NEGATIVE) Urine Barbiturates (NEGATIVE) Ur Phencyclidine (PCP) (NEGATIVE) Urine Amphetamine (NEGATIVE) U Benzodiazepine Level (NEGATIVE) Urine Cocaine (NEGATIVE) Urine Marijuana (THC) (NEGATIVE) - Progress Progress: improved Progress Note: 08/17/20 23:31 Pt much improved w 25mg IM phenergan/30mg IV toradol/4mg IV zofran Counseled pt/family regarding: lab results, need for follow-up - Departure Departure Disposition: Home Clinical Impression: Headache Condition: Stable Critical Care Time: No Referrals: DEMETRIO SCHRADER NP [Primary Care Provider] - Instructions: Headache, Adult, Migraines (DC) Additional Instructions: Follow up with your family MD in 1-2 days Return to ER for focal weakness/Increasing pain/Temperature greater than 100.5
[2020-08-17 22:58] LABS: ALBUMIN 4.7 g/dL (3.5-5.0); ALKALINE PHOSPHATASE 114 U/L (38-126); AMYLASE 111 U/L (30-110); ANION GAP 11.2 MEQ/L (5-15); BLOOD UREA NITROGEN 15 mg/dL (7-17); CHLORIDE 105 mmol/L (98-107); Calcium 9.5 mg/dL (8.4-10.2); Carbon Dioxide 26 mmol/L (22-30); Creatinine 1 0.69 mg/dL (0.52-1.04); EST GLOMERULAR FILTRATION RATE > 60.0 ML/MIN; Glucose 141 mg/dL (74-106); LIPASE 92 U/L (23-300); Potassium 3.4 mmol/L (3.5-5.1); SGOT/AST 37 U/L (14-36); SGPT/ALT 62 U/L (0-35); SODIUM 139 mmol/L (137-145); Total Protein 8.5 g/dL (6.3-8.2)
[2020-08-17 23:08] LABS: Amphetamine,Urine NEGATIVE (NEGATIVE); Barbiturate,Urine NEGATIVE (NEGATIVE); Benzodiazepine,Urine NEGATIVE (NEGATIVE); Cocaine,Urine NEGATIVE (NEGATIVE); Methadone,Urine NEGATIVE (NEGATIVE); Opiate,Urine NEGATIVE (NEGATIVE); PCP,Urine NEGATIVE (NEGATIVE); THC,Urine NEGATIVE (NEGATIVE)
[2020-08-17 23:26] LABS: Appearance CLEAR (CLEAR); Bilirubin NEGATIVE (NEGATIVE); Blood SMALL Ery/ul (0-5); Glucose NEGATIVE (NEGATIVE); Hyaline Casts 0-2 /LPF (0-2); Ketones NEGATIVE (NEGATIVE); Leukocyte Esterase NEGATIVE (NEGATIVE); Mucus SLIGHT /HPF (NEGATIVE); Nitrite NEGATIVE (NEGATIVE); Protein,Urine Dip 30 (Negative); RBC 0-2 /HPF (0-2); Specific Gravity 1.017 (1.005-1.025); Urobilinogen NEGATIVE mg/dL (0-1); WBC 0-2 /HPF (0-5)
[2020-08-17 23:39] VITALS: BP 172/101; PULSE 85
[2020-08-18 02:22] VITALS: O2SAT 98
== END 2020-08-17 23:43 | disposition home or self-care (01) ==
LOC: ED 21:18
DX: R51.9 Headache, unspecified (principal)
CPT/HCPCS: 36415; 80053; 80307; 81001; 82150; 83690; 85025; 96372; 96374; 96375; 99284; J1885; J2405; J2550

== ENCOUNTER 2020-12-06 04:08 | Emergency (ER) | payer OTHER ==
[2020-12-06] MEDS ORDERED: Sodium Chloride 0.9% 1000 ML 1,000 ML IV STA (04:29)
[2020-12-06] MEDS ORDERED: Phenergan 25 MG INJ IM ONE (04:29)
[2020-12-06] MEDS ORDERED: MORPHINE SULFATE 4 MG INJ IV ONE ×2 (04:29→05:05)
--- NOTE | 2020-12-06 04:29 | ERPHSYRPT ---
<MILLER DE LA PAZ KarmenNegar - Last Filed: 12/06/20 06:41> - History of Present Illness Time Seen by Provider: 12/06/20 04:20 Historian: patient Exam Limitations: clinical condition Physician History: This is a 55-year-old white female who presents with both epigastric and upper abdominal pain as well as substernal central nonradiating chest pain. Patient states that the pain in both places is sharp. It was sudden in onset. Patient went to bed feeling fine and woke up at 130 this morning with the use symptoms. There is associated nausea but no vomiting. She has had no diarrhea. Patient has had a cholecystectomy, , and renal stents in the past. Patient has had a history of anxiety, hypertension, gastroesophageal reflux disease, non- STEMI RI, fibromyalgia and irritable bowel syndrome. Patient's service control operator is Dr. rivas. Patient is allergic to iodine and hydromorphone but has had morphine injected to treat these symptoms. I reviewed old charts and she has received morphine intravenously without any issues. Also, the patient states she has no problems taking morphine. Patient states that she has had these exact, specific symptoms in the past on a few occasions. She states that sometimes stress brings these symptoms on. Timing/Duration: today Activities at Onset: none Quality: sharpness, stabbing Location: substernal, epigastric Chest Pain Radiation: no radiation Severity of Pain-Max: moderate Severity of Pain-Current: moderate Associated Symptoms: nausea, abdominal pain Prior Chest Pain/Cardiac Workup: no prior cardiac workup Nitro Today/Relief: no nitro taken today Aspirin Treatment Today: no aspirin today Allergies/Adverse Reactions: iodine Allergy (Verified 12/06/20 04:12) hydromorphone [From Dilaudid] Adverse Reaction (Verified 12/06/20 04:12) Home Medications: Omeprazole 20 MG [Prilosec 20 mg] 20 mg PO DAILY 02/02/18 [History] Clonazepam 0.5 mg [Klonopin 0.5 MG] 0.5 mg PO DAILY PRN PRN 04/17/18 [History] Losartan Potassium [Cozaar] 50 mg PO BID 05/13/19 [History] Hx Tetanus, Diphtheria Vaccination/Date Given: No Hx Influenza Vaccination/Date Given: No Hx Pneumococcal Vaccination/Date Given: No Travel Risk - International Travel Have you traveled outside of the country in past 3 weeks: No - Coronavirus Screening Are you exhibiting any of the following symptoms?: No Close contact with a COVID-19 positive Pt in past 14-21 Days: No - Review of Systems Constitutional: No Symptoms Eyes: No Symptoms Ears, Nose, & Throat: No Symptoms Respiratory: No Symptoms Cardiac: Chest Pain Abdominal/Gastrointestinal: Abdominal Pain (Epigastric), Nausea Genitourinary Symptoms: No Symptoms Musculoskeletal: No Symptoms Skin: No Symptoms Neurological: No Symptoms Psychological: No Symptoms Endocrine: No Symptoms Hematologic/Lymphatic: No Symptoms Immunological/Allergic: No Symptoms All Other Systems: Reviewed and Negative - Past Medical History Pertinent Past Medical History: Yes Neurological History: No Pertinent History ENT History: No Pertinent History Cardiac History: Hypertension Respiratory History: No Pertinent History Endocrine Medical History: No Pertinent History Musculoskeletal History: Osteoarthritis GI Medical History: Diverticulosis, GERD History: No Pertinent History Psycho-Social History: Anxiety, Depression Female Reproductive Disorders: No Pertinent History Other Medical History: HX OF TENDONITIS/ARTHRITIS RIGHT ELBOW, BILATERAL SCIATICA, AND HX OF HAVING "SHOULDERS AND 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 ALSO HAD SURGERY LEFT THUMB FOR ARTHRITIS. HX OF GERD - Past Surgical History Past Surgical History: Yes Neuro Surgical History: No Pertinent History Cardiac: No Pertinent History Respiratory: No Pertinent History Gastrointestinal: Cholecystectomy Genitourinary: Other Musculoskeletal: No Pertinent History Female Surgical History: Section Other Surgical History: x 1 (epicural), stints placed in bilat kidneys - Social History Smoking Status: Never smoker Exposure to second hand smoke: No Alcohol Use: None Drug Use: none Patient Lives Alone: No Significant Family History: no pertinent family hx, diabetes, hypertension - Physical Exam Eye Exam: PERRL/EOMI, eyes nml inspection Ears, Nose, Throat Exam: normal ENT inspection, moist mucous membranes Neck Exam: normal inspection, non-tender, supple, full range of motion Respiratory Exam: normal breath sounds, chest tenderness, lungs clear, airway intact, No respiratory distress Cardiovascular Exam: regular rate/rhythm, normal heart sounds, normal peripheral pulses Gastrointestinal/Abdomen Exam: soft, normal bowel sounds, tenderness, guarding, No rebound Pelvic Exam: not done Rectal Exam: not done Back Exam: normal inspection, normal range of motion, No CVA tenderness, No vertebral tenderness Extremity Exam: normal inspection, normal range of motion, pelvis stable Neurologic Exam: alert, oriented x 3, cooperative, second worker II-XII nml as tested, normal mood/affect, nml cerebellar function, nml station & gait, sensation nml Skin Exam: normal color, warm, dry Lymphatic Exam: No adenopathy SpO2 Interpretation: normal O2 Delivery: Room Air - Course Nursing assessment & vital signs reviewed: Yes EKG Interpreted by Me: RATE (102), Sinus Tach, NORMAL AXIS, NORMAL INTERVALS, NORMAL QRS, NORMAL ST-T, Other (No acute ischemic changes on today's EKG. When compared to the EKG dated 10/16/2019, there are no significant changes.) - Progress Progress: improved, re-examined Air Movement: good Progress Note: 12/06/20 05:44 Chest x-ray shows no acute cardiopulmonary process. Right lung base nodule is stable when compared to chest x-ray dated 02/02/2018. CAT scan of the abdomen pelvis without contrast reveals moderate colonic diverticulosis without diverticulitis. There are mildly dilated segments of small bowel with stool. No other acute intra-abdominal or pelvic findings. 12/06/20 06:41 Medical decision making: This patient's chest pain has now resolved completely. She has very little abdominal pain. Patient states that she does not want any more narcotic pain medicine. We will repeat a 3-hour troponin level. If this is normal she will be discharged to home. I am signing out this patient to Dr. Tsang at shift change. He accepts the patient in transfer and will make final disposition. Blood Culture(s) Obtained: No Antibiotics given: No Counseled pt/family regarding: lab results, diagnosis, need for follow-up, rad results - Departure Departure Disposition: Home Clinical Impression: Enteritis Chest pain Qualifiers: Chest pain type: unspecified Qualified Code(s): R07.9 - Chest pain, unspecified Abdominal pain Qualifiers: Abdominal location: epigastric Qualified Code(s): R10.13 - Epigastric pain Condition: Stable Critical Care Time: No Referrals: DEMETRIO SCHRADER NP [Primary Care Provider] - <JOSESITO TSANG - Last Filed: 12/06/20 07:47> - Nursing Vital Signs Nursing Vital Signs: Initial Vital Signs Temperature 98.3 F 12/06/20 04:08 Pulse Rate 98 H 12/06/20 04:08 Respiratory Rate 30 H 12/06/20 04:08 Blood Pressure 201/118 12/06/20 04:08 O2 Sat by Pulse Oximetry 99 12/06/20 04:08 Pain Scale Pain Intensity 3 Ordered Tests: Active Orders 24 hr Category Date Time Status EKG-ER Only STAT Care 12/06/20 04:29 Active IV Insertion STAT Care 12/06/20 04:29 Active ABDOMEN AND PELVIS W/0 CONTRAS [CT] Stat Exams 12/06/20 04:30 Taken CHEST 1 VIEW (PORTABLE) Stat Exams 12/06/20 04:30 Taken AMYLASE Stat Lab 12/06/20 04:30 Completed CBC W DIFF Stat Lab 12/06/20 04:30 Completed CMP Stat Lab 12/06/20 04:30 Completed LIPASE Stat Lab 12/06/20 04:30 Completed Lactic Acid Stat Lab 12/06/20 04:20 Completed TROPONIN Q3H Lab 12/06/20 04:30 Completed TROPONIN Q3H Lab 12/06/20 07:10 Completed TROPONIN Q3H Lab 12/06/20 10:30 Ordered TROPONIN Q3H Lab 12/06/20 13:30 Ordered TROPONIN Q3H Lab 12/06/20 16:30 Ordered UA W/RFX UR CULTURE Stat Lab 12/06/20 04:44 Ordered Medication Summary Discontinued Medications Generic Name Dose Route Start Last Admin Trade Name Jayantq PRN Reason Stop Dose Admin Sodium Chloride 1,000 mls @ 999 mls/hr 12/06/20 04:29 12/06/20 05:40 Sodium Chloride 0.9% 1000 Ml IV 12/06/20 05:29 Infused .Q1H1M STA Infusion Sodium Chloride Confirm 12/06/20 04:34 Sodium Chloride 0.9% 1000 Ml Administered 12/06/20 04:35 Dose 1,000 mls @ ud .ROUTE .STK-MED ONE Morphine Sulfate 4 mg 12/06/20 04:29 12/06/20 04:37 Morphine Sulfate 4 Mg Inj IV 12/06/20 04:30 4 mg STAT ONE Administration Morphine Sulfate Confirm 12/06/20 04:34 Morphine Sulfate 4 Mg Inj Administered 12/06/20 04:35 Dose 4 mg .ROUTE .STK-MED ONE Morphine Sulfate 4 mg 12/06/20 05:05 12/06/20 05:18 Morphine Sulfate 4 Mg Inj IV 12/06/20 05:06 4 mg STAT ONE Administration Morphine Sulfate Confirm 12/06/20 05:15 Morphine Sulfate 4 Mg Inj Administered 12/06/20 05:16 Dose 4 mg .ROUTE .STK-MED ONE Ondansetron HCl 4 mg 12/06/20 05:05 12/06/20 05:15 Zofran 4 Mg/2 Ml Vial IV 12/06/20 05:06 4 mg STAT ONE Administration Ondansetron HCl Confirm 12/06/20 05:14 Zofran 4 Mg/2 Ml Vial Administered 12/06/20 05:15 Dose 4 mg .ROUTE .STK-MED ONE Promethazine HCl 25 mg 12/06/20 04:29 12/06/20 04:35 Phenergan 25 Mg Inj IM 12/06/20 04:30 25 mg STAT ONE Administration Promethazine HCl Confirm 12/06/20 04:32 Phenergan 25 Mg Inj Administered 12/06/20 04:33 Dose 25 mg .ROUTE .STK-MED ONE Lab/Rad Data: Laboratory Result Diagrams 12/06/20 04:30 12/06/20 04:30 Laboratory Results 12/06/20 12/06/20 12/06/20 Range/Units 07:10 04:30 04:30 WBC (4.0-10.5) K/mm3 RBC (4.1-5.4) M/mm3 Hgb (12.0-16.0) gm/dl Hct (35-47) % MCV (78-100) fl MCH (26-32) pg MCHC (32-36) g/dl RDW (11.5-14.0) % Plt Count (150-450) K/mm3 MPV (7.5-11.0) fl Gran % (36.0-66.0) % Eos # (Auto) (0-0.5) Absolute Lymphs (auto) (1.0-4.6) Absolute Monos (auto) (0.0-1.3) Lymphocytes % (24.0-44.0) % Monocytes % (0.0-12.0) % Eosinophils % (0.00-5.0) % Basophils % (0.0-0.4) % Absolute Granulocytes (1.4-6.9) Basophils # (0-0.4) Sodium 138 (137-145) mmol/L Potassium 3.7 (3.5-5.1) mmol/L Chloride 103 (98-107) mmol/L Carbon Dioxide 26 (22-30) mmol/L Anion Gap 13.1 (5-15) MEQ/L BUN 14 (7-17) mg/dL Creatinine 0.60 (0.52-1.04) mg/dL Estimated GFR > 60.0 ML/MIN Glucose 157 H (74-106) mg/dL Lactic Acid (0.4-2.0) Calcium 9.8 (8.4-10.2) mg/dL Total Bilirubin 0.30 (0.2-1.3) mg/dL AST 48 H (14-36) U/L ALT 84 H (0-35) U/L Alkaline Phosphatase 143 H (38-126) U/L Troponin I < 0.012 < 0.012 (0.000-0.034) ng/mL Serum Total Protein 8.4 H (6.3-8.2) g/dL Albumin 4.5 (3.5-5.0) g/dL Amylase 81 (30-110) U/L Lipase 87 (23-300) U/L 12/06/20 12/06/20 Range/Units 04:30 04:20 WBC 5.4 (4.0-10.5) K/mm3 RBC 4.91 (4.1-5.4) M/mm3 Hgb 14.5 (12.0-16.0) gm/dl Hct 43.9 (35-47) % MCV 89.4 (78-100) fl MCH 29.5 (26-32) pg MCHC 33.0 (32-36) g/dl RDW 13.2 (11.5-14.0) % Plt Count 317 (150-450) K/mm3 MPV 9.6 (7.5-11.0) fl Gran % 53.2 (36.0-66.0) % Eos # (Auto) 0.06 (0-0.5) Absolute Lymphs (auto) 1.94 (1.0-4.6) Absolute Monos (auto) 0.49 (0.0-1.3) Lymphocytes % 36.0 (24.0-44.0) % Monocytes % 9.1 (0.0-12.0) % Eosinophils % 1.1 (0.00-5.0) % Basophils % 0.6 (0.0-0.4) % Absolute Granulocytes 2.87 (1.4-6.9) Basophils # 0.03 (0-0.4) Sodium (137-145) mmol/L Potassium (3.5-5.1) mmol/L Chloride (98-107) mmol/L Carbon Dioxide (22-30) mmol/L Anion Gap (5-15) MEQ/L BUN (7-17) mg/dL Creatinine (0.52-1.04) mg/dL Estimated GFR ML/MIN Glucose (74-106) mg/dL Lactic Acid 1.6 (0.4-2.0) Calcium (8.4-10.2) mg/dL Total Bilirubin (0.2-1.3) mg/dL AST (14-36) U/L ALT (0-35) U/L Alkaline Phosphatase (38-126) U/L Troponin I (0.000-0.034) ng/mL Serum Total Protein (6.3-8.2) g/dL Albumin (3.5-5.0) g/dL Amylase (30-110) U/L Lipase (23-300) U/L
[2020-12-06] MEDS ORDERED: Phenergan 25 MG INJ ONE (04:32)
[2020-12-06] MEDS ORDERED: MORPHINE SULFATE 4 MG INJ ONE ×2 (04:34→05:15)
[2020-12-06] MEDS ORDERED: Sodium Chloride 0.9% 1000 ML 1,000 ML ONE (04:34)
[2020-12-06 04:48] LABS: Absolute Neutrophil Ct (ANC) 2.87 (1.4-6.9); BASOPHIL % 0.6 % (0.0-0.4); Basophil (Absolute #) 0.03 (0-0.4); Eosinophil % 1.1 % (0.00-5.0); Eosinophil (Absolute #) 0.06 (0-0.5); Hematocrit 43.9 % (35-47); Hemoglobin 14.5 gm/dl (12.0-16.0); Lymphocyte (Absolute #) 1.94 (1.0-4.6); Mean Cell Volume 89.4 fl (78-100); Mean Corpuscular Hemoglobin 29.5 pg (26-32); Mean Platelet Volume 9.6 fl (7.5-11.0); Monocyte (Absolute #) 0.49 (0.0-1.3); Monocytes % 9.1 % (0.0-12.0); Neutrophil % 53.2 % (36.0-66.0); Platelet Count 317 K/mm3 (150-450); Red Blood Count 4.91 M/mm3 (4.1-5.4); Red Cell Distribution Width 13.2 % (11.5-14.0); White Blood Count 5.4 K/mm3 (4.0-10.5)
[2020-12-06 04:57] LABS: ALBUMIN 4.5 g/dL (3.5-5.0); ALKALINE PHOSPHATASE 143 U/L (38-126); AMYLASE 81 U/L (30-110); ANION GAP 13.1 MEQ/L (5-15); BLOOD UREA NITROGEN 14 mg/dL (7-17); CHLORIDE 103 mmol/L (98-107); Calcium 9.8 mg/dL (8.4-10.2); Carbon Dioxide 26 mmol/L (22-30); EST GLOMERULAR FILTRATION RATE > 60.0 ML/MIN; Glucose 157 mg/dL (74-106); LIPASE 87 U/L (23-300); Potassium 3.7 mmol/L (3.5-5.1); SGOT/AST 48 U/L (14-36); SGPT/ALT 84 U/L (0-35); SODIUM 138 mmol/L (137-145); Total Protein 8.4 g/dL (6.3-8.2)
[2020-12-06] MEDS ORDERED: Zofran 4 MG/2 ML VIAL IV ONE (05:05)
[2020-12-06] MEDS ORDERED: Zofran 4 MG/2 ML VIAL ONE (05:14)
[2020-12-06 07:29] VITALS: PULSE 66; O2SAT 98
[2020-12-06 07:33] VITALS: BP 147/80
--- NOTE | 2020-12-06 08:06 | XRAY ---
Indication: Epigastric pain. Multiple contiguous axial images obtained through the abdomen and pelvis without contrast as ordered. Comparison: October 17, 2019. Lung bases demonstrates stable right lower lobe calcified in left lower lobe noncalcified granulomas. No infiltrate or effusion. Heart is not enlarged. Stomach is distended with food. Noncontrasted stomach and bowel loops appear nonobstructed. Normal appendix. There remains scattered colonic diverticulosis again greatest in the sigmoid colon. No free fluid/air. Stable mild fatty liver and cholecystectomy. Uterus demonstrates new 1 cm cervical nabothian cyst. Remaining liver, pancreas, spleen, adrenal glands, kidneys, ureters, bladder, uterus, and aorta appear unremarkable for noncontrast exam. Osseous structures intact again with mild degenerative changes throughout the spine.. Impression: 1. Again colonic diverticulosis without diverticulitis, fatty liver, and old granulomatous disease. 2. New uterine nabothian cyst. 3. Remaining CT abdomen/pelvis without contrast exam is negative. Comment: Preliminary interpretation was made by [facility]. No critical discrepancy.
--- NOTE | 2020-12-06 08:08 | XRAY ---
Indication: Epigastric pain. Comparison: February 02, 2018. Portable chest again demonstrates normal heart and lungs with incidental calcified granulomas. Bony thorax intact again with mild degenerative changes and minimal scoliosis. No new/acute findings.
== END 2020-12-06 08:01 | disposition home or self-care (01) ==
LOC: ED 04:08
DX: R10.13 Epigastric pain (principal); K52.9 Noninfective gastroenteritis and colitis, unspecified; R10.10 Upper abdominal pain, unspecified; R07.9 Chest pain, unspecified; R11.0 Nausea; I10 Essential (primary) hypertension; Z79.899 Other long term (current) drug therapy
CPT/HCPCS: 36000; 36415; 71045; 74176; 80053; 82150; 83605; 83690; 84484; 85025; 93005; 96372; 96374; 96375; 96376; 99284; J2270; J2405; J2550

== ENCOUNTER 2021-02-10 07:35 | Observation (INO) | payer OTHER ==
[2021-02-10] MEDS ORDERED: BABY ASPIRIN 81 MG CHEW PO ONE (07:43)
[2021-02-10] MEDS ORDERED: NITRO-BID 2% UD PACKETS TOP ONE (07:43)
[2021-02-10] MEDS ORDERED: MORPHINE SULFATE 4 MG INJ IV ONE (07:43)
[2021-02-10] MEDS ORDERED: Zofran 4 MG/2 ML VIAL IV ONE (07:43)
--- NOTE | 2021-02-10 07:48 | ERPHSYRPT ---
- History of Present Illness Time Seen by Provider: 02/10/21 07:38 Historian: patient Exam Limitations: no limitations Physician History: 55 years old female with history of hypertension, anxiety, GERD presented in the ER with chief complaint of sudden onset substernal/left-sided chest pain waking her up from sleep around 5:30 AM today, constant, sharp, moderate to severe intensity, without any known significant aggravating or relieving factors. Denies any difficulty breathing. Patient reports associated nausea and some upper abdominal discomfort but no vomiting. Denies any fever chills or cough. Reports having similar symptoms multiple times in the past and had a cardiac cath done almost 3 years ago which was negative. Patient blood pressure on presentation is in 200s, reports not taking her regular meds this morning. Denies any headache, blurry vision, numbness tingling or focal weakness. Timing/Duration: hour(s) (2), sudden, worse Activities at Onset: sleep Quality: sharpness Location: substernal, central Chest Pain Radiation: no radiation Severity of Pain-Max: moderate Severity of Pain-Current: moderate Modifying Factors: Improves With: nothing Associated Symptoms: nausea, heartburn, No vomiting, No shortness of breath, No cough Prior Chest Pain/Cardiac Workup: cardiac cath Nitro Today/Relief: no nitro taken today Aspirin Treatment Today: no aspirin today Allergies/Adverse Reactions: hydromorphone [From Dilaudid] Adverse Reaction (Verified 02/10/21 07:46) iv contrast Allergy (Uncoded 02/10/21 13:03) Home Medications: Omeprazole 20 MG [Prilosec 20 mg] 20 mg PO BID 02/02/18 [History] Clonazepam 0.5 mg [Klonopin 0.5 MG] 0.5 mg PO BID PRN 04/17/18 [History] Losartan Potassium [Cozaar] 50 mg PO BID 05/13/19 [History] PANTOPRAZOLE 40 mg Tablet [Protonix 40MG Tablet] 40 mg PO QAM 02/10/21 [History] Hx Tetanus, Diphtheria Vaccination/Date Given: No Hx Influenza Vaccination/Date Given: No Hx Pneumococcal Vaccination/Date Given: No - Review of Systems Constitutional: No Symptoms Eyes: No Symptoms Ears, Nose, & Throat: No Symptoms Respiratory: No Symptoms Cardiac: Chest Pain Abdominal/Gastrointestinal: Nausea Genitourinary Symptoms: No Symptoms Musculoskeletal: No Symptoms Skin: No Symptoms Neurological: No Symptoms Psychological: No Symptoms Endocrine: No Symptoms Hematologic/Lymphatic: No Symptoms Immunological/Allergic: No Symptoms - Past Medical History Pertinent Past Medical History: Yes Neurological History: No Pertinent History ENT History: No Pertinent History Cardiac History: Hypertension, Myocardial Infarction (NM) Respiratory History: No Pertinent History Endocrine Medical History: No Pertinent History Musculoskeletal History: Fibromyalgia, Osteoarthritis GI Medical History: Diverticulosis, GERD History: No Pertinent History Psycho-Social History: Anxiety, Depression Female Reproductive Disorders: No Pertinent History Other Medical History: PMHX: ANXIETY, GERD. HX NM 2018 - NO BLOCKAGES - CLEARED BY AUTOMATION DEVELOPER - NM DUE TO SEVERE STRESS. PATIENT REPORTS OA IN HANDS WITH HX OF SURGERY LEFT THUMB. SX HX: CHOLECYSTECTOMY, , KIDNEY STENT - Past Surgical History Past Surgical History: Yes Neuro Surgical History: No Pertinent History Cardiac: No Pertinent History Respiratory: No Pertinent History Gastrointestinal: Cholecystectomy Genitourinary: Other Musculoskeletal: No Pertinent History Female Surgical History: Section Other Surgical History: x 1 (epicural), stints placed in bilat kidneys - Social History Smoking Status: Never smoker Exposure to second hand smoke: No Alcohol Use: None Drug Use: none Patient Lives Alone: No Significant Family History: no pertinent family hx, diabetes, hypertension - Nursing Vital Signs Nursing Vital Signs: Initial Vital Signs Temperature 96.9 F 02/10/21 07:37 Pulse Rate 97 H 02/10/21 07:37 Respiratory Rate 21 02/10/21 07:37 Blood Pressure 217/125 02/10/21 07:37 O2 Sat by Pulse Oximetry 98 02/10/21 07:37 Pain Scale Pain Intensity 0 - Physical Exam General Appearance: no apparent distress, alert Eye Exam: PERRL/EOMI, eyes nml inspection Ears, Nose, Throat Exam: normal ENT inspection, pharynx normal Neck Exam: normal inspection, supple, full range of motion Respiratory Exam: normal breath sounds, lungs clear Cardiovascular Exam: regular rate/rhythm, normal heart sounds Gastrointestinal/Abdomen Exam: soft, normal bowel sounds, tenderness (Mild epigastric) Back Exam: normal inspection, normal range of motion Extremity Exam: normal inspection, normal range of motion Neurologic Exam: alert, oriented x 3, cooperative, radio communications mechanician II-XII nml as tested Skin Exam: normal color SpO2 Interpretation: normal SpO2: 97 O2 Delivery: Room Air - Course EKG Interpreted by Me: RATE (99), Sinus Rhythm, NORMAL AXIS, NORMAL INTERVALS, NORMAL QRS Ordered Tests: Active Orders 24 hr Category Date Time Status Up With Assistance ROUTINE Activity 02/10/21 12:26 Active Child Protective Services Social Worker STAT Care 02/10/21 07:43 Completed Code Status Order ROUTINE Care 02/10/21 12:26 Active EKG-ER Only STAT Care 02/10/21 07:43 Completed Fall Protocol ROUTINE Care 02/10/21 12:26 Active IV Care Q6H Care 02/10/21 12:26 Active IV Insertion STAT Care 02/10/21 07:43 Completed Oxygen-ED Only Nasal Cannula 2 lpm Care 02/10/21 07:[address] in Observation ROUTINE Care 02/10/21 12:26 Active Stephan Hose, Apply ROUTINE Care 02/10/21 12:26 Active Weight,Daily 0600 Care 02/10/21 12:26 Active Heart-Healthy Diet Diet 02/10/21 Lunch Active CHEST 1 VIEW (PORTABLE) Stat Exams 02/10/21 07:43 Completed HEAD WITHOUT CONTRAST [CT] Stat Exams 02/10/21 07:58 Completed CBC W DIFF AM.LAB Lab 02/11/21 04:00 Ordered CBC W DIFF Stat Lab 02/10/21 08:10 Completed CMP AM.LAB Lab 02/11/21 04:00 Ordered CMP Stat Lab 02/10/21 08:10 Completed D-DIMER QUANTITATIVE Stat Lab 02/10/21 09:56 Completed LIPASE Stat Lab 02/10/21 08:10 Completed NT PRO BNP Stat Lab 02/10/21 08:10 Completed TROPONIN Q3H Lab 02/10/21 08:10 Completed TROPONIN Q3H Lab 02/10/21 10:48 Completed TROPONIN Q3H Lab 02/10/21 13:45 Ordered TROPONIN Q3H Lab 02/10/21 16:45 Ordered TROPONIN Q3H Lab 02/10/21 19:45 Ordered Transfer Order Routine Transfer 02/10/21 Completed Medication Summary Generic Name Dose Route Start Last Admin Trade Name Freq PRN Reason Stop Dose Admin Acetaminophen 650 mg 02/10/21 12:26 02/10/21 13:33 Tylenol 325 Mg PO 03/12/21 12:25 650 mg Q4H PRN PRN Administration PAIN AND/OR FEVER Albuterol/Ipratropium 3 ml 02/10/21 12:26 Duoneb 0.5-3 Mg/3 Ml Neb IH 03/12/21 12:25 Q4HPRN PRN SHORTNESS OF BREATH/WHEEZING Morphine Sulfate 2 mg 02/10/21 12:26 Morphine Sulfate 2 Mg Inj IV 02/15/21 12:25 Q4H PRN PRN PAIN Ondansetron HCl 4 mg 02/10/21 12:26 Zofran 4 Mg/2 Ml Vial IV 03/12/21 12:25 Q6H PRN PRN NAUSEA/VOMITING Pantoprazole Sodium 40 mg 02/11/21 10:00 Protonix 40 Mg Iv IV 03/13/21 09:59 Q24H10 [place] Discontinued Medications Generic Name Dose Route Start Last Admin Trade Name Freq PRN Reason Stop Dose Admin Aspirin 324 mg 02/10/21 07:43 02/10/21 09:00 Baby Aspirin 81 Mg Chew PO 02/10/21 07:44 324 mg STAT ONE Administration Aspirin Confirm 02/10/21 07:50 Baby Aspirin 81 Mg Chew Administered 02/10/21 07:51 Dose 324 mg .ROUTE .STK-MED ONE Hydralazine HCl 10 mg 02/10/21 09:58 02/10/21 10:02 Apresoline 20 Mg/Ml Inj IV 02/10/21 09:59 10 mg STAT ONE Administration Hydralazine HCl Confirm 02/10/21 10:02 Apresoline 20 Mg/Ml Inj Administered 02/10/21 10:03 Dose 20 mg .ROUTE .STK-MED ONE Morphine Sulfate 4 mg 02/10/21 07:43 02/10/21 09:01 Morphine Sulfate 4 Mg Inj IV 02/10/21 07:44 4 mg STAT ONE Administration Morphine Sulfate Confirm 02/10/21 07:51 Morphine Sulfate 4 Mg Inj Administered 02/10/21 07:52 Dose 4 mg .ROUTE .STK-MED ONE Nitroglycerin 1 gm 02/10/21 07:43 02/10/21 09:01 Nitro-Bid 2% Ud Packets TOP 02/10/21 07:44 1 gm STAT ONE Administration Nitroglycerin Confirm 02/10/21 07:51 Nitro-Bid 2% Ud Packets Administered 02/10/21 07:52 Dose 1 gm .ROUTE .STK-MED ONE Ondansetron HCl 4 mg 02/10/21 07:43 02/10/21 08:02 Zofran 4 Mg/2 Ml Vial IV 02/10/21 07:44 4 mg STAT ONE Administration Ondansetron HCl Confirm 02/10/21 07:50 Zofran 4 Mg/2 Ml Vial Administered 02/10/21 07:51 Dose 4 mg .ROUTE .STK-MED ONE Ondansetron HCl Confirm 02/10/21 07:59 Zofran 4 Mg/2 Ml Vial Administered 02/10/21 08:00 Dose 4 mg .ROUTE .STK-MED ONE Lab/Rad Data: Laboratory Result Diagrams 02/10/21 08:10 02/10/21 08:10 Laboratory Results 02/10/21 02/10/21 02/10/21 Range/Units 10:48 10:28 09:56 WBC (4.0-10.5) K/mm3 RBC (4.1-5.4) M/mm3 Hgb (12.0-16.0) gm/dl Hct (35-47) % MCV (78-100) fl MCH (26-32) pg MCHC (32-36) g/dl RDW (11.5-14.0) % Plt Count (150-450) K/mm3 MPV (7.5-11.0) fl Gran % (36.0-66.0) % Eos # (Auto) (0-0.5) Absolute Lymphs (auto) (1.0-4.6) Absolute Monos (auto) (0.0-1.3) Lymphocytes % (24.0-44.0) % Monocytes % (0.0-12.0) % Eosinophils % (0.00-5.0) % Basophils % (0.0-0.4) % Absolute Granulocytes (1.4-6.9) Basophils # (0-0.4) D-Dimer < 215 L (215-500) ng/mL Sodium (137-145) mmol/L Potassium (3.5-5.1) mmol/L Chloride (98-107) mmol/L Carbon Dioxide (22-30) mmol/L Anion Gap (5-15) MEQ/L BUN (7-17) mg/dL Creatinine (0.52-1.04) mg/dL Estimated GFR ML/MIN Glucose (74-106) mg/dL Calcium (8.4-10.2) mg/dL Total Bilirubin (0.2-1.3) mg/dL AST (14-36) U/L ALT (0-35) U/L Alkaline Phosphatase (38-126) U/L Troponin I < 0.012 (0.000-0.034) ng/mL NT-Pro-B Natriuret Pep (0-900) pg/mL Serum Total Protein (6.3-8.2) g/dL Albumin (3.5-5.0) g/dL Lipase (23-300) U/L Influenza Type A Ag NEGATIVE (NEGATIVE) Influenza Type B Ag NEGATIVE (NEGATIVE) RSV (PCR) NEGATIVE (Negative) SARS-CoV-2 (PCR) NEGATIVE (NEGATIVE) 02/10/21 02/10/21 02/10/21 Range/Units 08:10 08:10 08:10 WBC 8.4 (4.0-10.5) K/mm3 RBC 4.79 (4.1-5.4) M/mm3 Hgb 14.2 (12.0-16.0) gm/dl Hct 43.1 (35-47) % MCV 90.0 (78-100) fl MCH 29.6 (26-32) pg MCHC 32.9 (32-36) g/dl RDW 12.5 (11.5-14.0) % Plt Count 288 (150-450) K/mm3 MPV 9.4 (7.5-11.0) fl Gran % 76.5 H (36.0-66.0) % Eos # (Auto) 0.05 (0-0.5) Absolute Lymphs (auto) 1.37 (1.0-4.6) Absolute Monos (auto) 0.54 (0.0-1.3) Lymphocytes % 16.3 L (24.0-44.0) % Monocytes % 6.4 (0.0-12.0) % Eosinophils % 0.6 (0.00-5.0) % Basophils % 0.2 (0.0-0.4) % Absolute Granulocytes 6.45 (1.4-6.9) Basophils # 0.02 (0-0.4) D-Dimer (215-500) ng/mL Sodium 141 (137-145) mmol/L Potassium 4.2 (3.5-5.1) mmol/L Chloride 102 (98-107) mmol/L Carbon Dioxide 26 (22-30) mmol/L Anion Gap 17.0 H (5-15) MEQ/L BUN 21 H (7-17) mg/dL Creatinine 0.68 (0.52-1.04) mg/dL Estimated GFR > 60.0 ML/MIN Glucose 138 H (74-106) mg/dL Calcium 9.9 (8.4-10.2) mg/dL Total Bilirubin 0.30 (0.2-1.3) mg/dL AST 53 H (14-36) U/L ALT 87 H (0-35) U/L Alkaline Phosphatase 113 (38-126) U/L Troponin I < 0.012 (0.000-0.034) ng/mL NT-Pro-B Natriuret Pep 24.4 (0-900) pg/mL Serum Total Protein 8.2 (6.3-8.2) g/dL Albumin 4.5 (3.5-5.0) g/dL Lipase 79 (23-300) U/L Influenza Type A Ag (NEGATIVE) Influenza Type B Ag (NEGATIVE) RSV (PCR) (Negative) SARS-CoV-2 (PCR) (NEGATIVE) - Progress Progress: improved Air Movement: good Progress Note: 02/10/21 10:06 55 years old is evaluated for chest pain. EKG did not show any acute ST elevation. Patient blood pressure was 217 systolic on presentation. While in the ER patient was acting as if she was confused and I have obtained prompt CT head which is negative. She has a nonfocal neuro exam throughout stay in the ER. Patient is given morphine, aspirin and Nitropaste, on reevaluation her pain is better and she is acting at her baseline. Patient reports she has some confusion when pain gets out of control and it has happened in the past as well. I do not think patient has a neurological event happened. Initial troponins are negative. She has a history of cholecystectomy and mildly elevated liver enzymes. Normal lipase. Chest x-ray negative for any acute cardiopulmonary findings. Patient blood pressure improved to 160s but again 195 and her I have ordered some hydralazine. I have discussed with Dr. Mehta who recommended obtaining D-dimers. Which are pending now. Patient has multiple risk factor and the sharp duration of her pain onset she needs to be observed and trend cardiac enzymes. Also her last cardiac cath was 3 years ago. Patient is discussed in detail with Dr. Peters who agreed with observation admission here. 02/10/21 13:04 Her D-dimers are negative and patient is admitted. Blood Culture(s) Obtained: No Antibiotics given: No Discussed with Dr.: Delicia Will see patient in: hospital (observation) Counseled pt/family regarding: lab results, diagnosis, rad results - Departure Departure Disposition: Observation Clinical Impression: Uncontrolled hypertension Chest pain Qualifiers: Chest pain type: precordial pain Qualified Code(s): R07.2 - Precordial pain GERD with esophagitis Qualifiers: Esophagitis bleeding: without hemorrhage Qualified Code(s): K21.00 - Gastro- esophageal reflux disease with esophagitis, without bleeding Condition: Stable Critical Care Time: Yes Critical Care Time(excluding separately billable procedures): Critical 30-74 mins
[2021-02-10] MEDS ORDERED: Zofran 4 MG/2 ML VIAL ONE ×2 (07:50→07:59)
[2021-02-10] MEDS ORDERED: BABY ASPIRIN 81 MG CHEW ONE (07:50)
[2021-02-10] MEDS ORDERED: NITRO-BID 2% UD PACKETS ONE (07:51)
[2021-02-10] MEDS ORDERED: MORPHINE SULFATE 4 MG INJ ONE (07:51)
[2021-02-10 08:31] LABS: Absolute Neutrophil Ct (ANC) 6.45 (1.4-6.9); BASOPHIL % 0.2 % (0.0-0.4); Basophil (Absolute #) 0.02 (0-0.4); Eosinophil % 0.6 % (0.00-5.0); Eosinophil (Absolute #) 0.05 (0-0.5); Hematocrit 43.1 % (35-47); Hemoglobin 14.2 gm/dl (12.0-16.0); Lymphocyte (Absolute #) 1.37 (1.0-4.6); Lymphocytes % 16.3 % (24.0-44.0); Mean Corpuscular Hemoglobin 29.6 pg (26-32); Mean Corpuscular Hgb Concent. 32.9 g/dl (32-36); Mean Platelet Volume 9.4 fl (7.5-11.0); Monocyte (Absolute #) 0.54 (0.0-1.3); Monocytes % 6.4 % (0.0-12.0); Neutrophil % 76.5 % (36.0-66.0); Platelet Count 288 K/mm3 (150-450); Red Blood Count 4.79 M/mm3 (4.1-5.4); Red Cell Distribution Width 12.5 % (11.5-14.0); White Blood Count 8.4 K/mm3 (4.0-10.5)
--- NOTE | 2021-02-10 08:36 | XRAY ---
Indication: Chest pain. Short of breath. Comparison: December 06, 2020. Portable chest demonstrates stable right lower lobe calcified granuloma. No focal infiltrate, consolidation, or large effusion. Heart is not enlarged for AP portable technique. Bony thorax intact again with mild degenerative changes and minimal scoliosis. Impression: Continued nonacute chest with chronic features.
[2021-02-10 08:58] LABS: Glucose 138 mg/dL (74-106); SGOT/AST 53 U/L (14-36)
[2021-02-10 09:05] LABS: ALBUMIN 4.5 g/dL (3.5-5.0); ALKALINE PHOSPHATASE 113 U/L (38-126); BLOOD UREA NITROGEN 21 mg/dL (7-17); CHLORIDE 102 mmol/L (98-107); Calcium 9.9 mg/dL (8.4-10.2); Carbon Dioxide 26 mmol/L (22-30); Creatinine 1 0.68 mg/dL (0.52-1.04); EST GLOMERULAR FILTRATION RATE > 60.0 ML/MIN; LIPASE 79 U/L (23-300); NT PRO BNP 24.4 pg/mL (0-900); Potassium 4.2 mmol/L (3.5-5.1); SGPT/ALT 87 U/L (0-35); SODIUM 141 mmol/L (137-145); Total Protein 8.2 g/dL (6.3-8.2)
--- NOTE | 2021-02-10 09:27 | XRAY ---
Indication: Confusion. Multiple contiguous axial images obtained through the head without contrast. Comparison: None Normal appearing brain parenchyma, ventricles, and bony calvarium. Visualized paranasal sinuses and mastoid air cells are clear. Impression: Normal CT head without contrast exam.
[2021-02-10] MEDS ORDERED: APRESOLINE 20 MG/ML INJ IV ONE (09:58)
[2021-02-10] MEDS ORDERED: APRESOLINE 20 MG/ML INJ ONE (10:02)
[2021-02-10 11:51] LABS: INFLUENZA A NEGATIVE (NEGATIVE); INFLUENZA B NEGATIVE (NEGATIVE); RESPIRATORY SYNCTIAL VIRUS NEGATIVE (Negative)
[2021-02-10] MEDS ORDERED: MORPHINE SULFATE 2 MG INJ IV PRN (12:26)
[2021-02-10] MEDS ORDERED: DUONEB 0.5-3 MG/3 ml Neb IH PRN (12:26)
[2021-02-10] MEDS ORDERED: Zofran 4 MG/2 ML VIAL IV PRN (12:26)
[2021-02-10] MEDS: TYLENOL 325 MG PO PRN ×2 (13:33→20:19)
[2021-02-10] MEDS ORDERED: Klonopin 0.5 MG PO PRN (16:12)
[2021-02-10] MEDS ORDERED: Protonix 40MG Tablet ONE ×2 (17:32→17:45)
[2021-02-10] MEDS ORDERED: Cozaar 50 MG PO SCH (22:00)
[2021-02-10] MEDS ORDERED: Klonopin 0.5 MG PO SCH (22:00)
[2021-02-10] MEDS ORDERED: NON-FORMULARY ITEM (Omeprazole 20 Mg [Prilosec 20 Mg] 20 MG) PO SCH (22:00)
[2021-02-10] MEDS ORDERED: Protonix 40MG Tablet PO SCH (22:00)
--- NOTE | 2021-02-10 23:22 | PCM.SSS ---
History of Present Illness - Chief Complaint Chief Complaint: Chest Pain History of Present Illness: is a 55 year old female with a Hx NSTEMI in [address] Grimaldo. She states ,"I had a heart attack when my but my heart cath was ok". She presented to ER with left sided chest pain and nausea.B/P was in the 200's and improved with Hydralazine and Nitro patch. PMHx HTN,GERD ,anxiety,insomnia. - Review of Systems Constitutional: Fatigue Eyes: No Symptoms Ears, Nose, & Throat: No Symptoms Respiratory: No Symptoms Cardiac: Chest Pain Abdominal/Gastrointestinal: Nausea Genitourinary Symptoms: No Symptoms Musculoskeletal: No Symptoms Skin: No Symptoms Neurological: No Symptoms Medications & Allergies Home Medications: Home Medication List Omeprazole 20 MG [Prilosec 20 mg] 20 mg PO BID 02/02/18 [History Confirmed 02/10/21] Clonazepam 0.5 mg [Klonopin 0.5 MG] 0.5 mg PO BID PRN 04/17/18 [History Confirmed 02/10/21] Losartan Potassium [Cozaar] 50 mg PO BID 05/13/19 [History Confirmed 02/10/21] PANTOPRAZOLE 40 mg Tablet [Protonix 40MG Tablet] 40 mg PO QAM 02/10/21 [History Confirmed 02/10/21] Nitroglycerin 0.1MG/Hr [Nitro-Dur 0.1MG/Hr] 0.1 mg TD DAILY #30 patch.td24 02/11/21 [Rx] Trazodone HCl 50 mg [Desyrel 50 mg] 50 mg PO QHS PRN #30 tablet 02/11/21 [Rx] Allergies/Adverse Reactions: Allergies Allergy/AdvReac Type Severity Reaction Status Date / Time hydromorphone [From Dilaudid] AdvReac Verified 02/10/21 07:46 iv contrast Allergy Uncoded 02/10/21 13:03 - Past Medical History Past Medical History: Yes Neurological History: No Pertinent History ENT History: No Pertinent History Cardiac History: Hypertension, Myocardial Infarction ([place]) Respiratory History: No Pertinent History Endocrine Medical History: No Pertinent History Musculoskelatal History: Fibromyalgia, Osteoarthritis GI Medical History: Diverticulosis, GERD History: No Pertinent History Pyscho-Social History: Anxiety, Depression Reproductive Disorders: No Pertinent History Comment: PMHX: ANXIETY, GERD. HX [place] 2018 - NO BLOCKAGES - CLEARED BY TAKER OFF DRYING [place]IL[place] - [place] DUE TO SEVERE STRESS. PATIENT REPORTS OA IN HANDS WITH HX OF SURGERY LEFT THUMB. SX HX: CHOLECYSTECTOMY, , KIDNEY STENT - Female History Hx Last Menstrual Period: post menopause Are you now?: No - Past Surgical History Past Surgical History: Yes Neuro Surgical History: No Pertinent History Cardiac History: No Pertinent History Respiratory Surgery: No Pertinent History GI Surgical History: Cholecystectomy Genitourinary Surgical Hx: Other Musculskeletal Surgical Hx: No Pertinent History Female Surgical History: Section Other Surgical History: x 1 (epicural), stints placed in bilat kidneys - Social History Smoking Status: Never smoker Exposure to second hand smoke: No Alcohol: None Drug Use: none Significant Family History: no pertinent family hx, diabetes, hypertension - Physical Exam Vital Signs: Vital Signs - 24 hr Temp Pulse Pulse Resp BP Pulse Ox 02/10/21 19:54 98.5 F 72 16 141/74 93 L 02/10/21 19:51 76 14 92 L 02/10/21 16:00 88 20 123/72 95 02/10/21 14:32 72 18 95 02/10/21 14:04 97 02/10/21 12:51 98.2 F 94 H 18 139/76 96 02/10/21 11:00 100 H 18 142/82 02/10/21 10:18 103 H 144/81 95 02/10/21 09:09 76 20 195/100 95 02/10/21 08:47 75 20 187/118 98 02/10/21 07:46 84 21 185/113 97 02/10/21 07:37 96.9 F 98 H 97 H 21 217/125 98 General Appearance: no apparent distress Neurologic Exam: alert, oriented x 3, cooperative, 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, normal mood/affect, nml cerebellar function, nml station & gait Eye Exam: PERRL/EOMI, eyes nml inspection Ears, Nose, Throat Exam: normal ENT inspection Neck Exam: normal inspection Respiratory Exam: normal breath sounds Cardiovascular Exam: regular rate/rhythm Gastrointestinal/Abdomen Exam: soft (nontender) Pelvic Exam: not done Rectal Exam: not done Back Exam: normal inspection Extremity Exam: normal inspection (no pitting edema) Skin Exam: normal color, warm, dry Results - Labs Lab/Micro Results: Lab Results-Last 24 Hours 02/10/21 02/10/21 02/10/21 Range/Units 08:10 08:10 08:10 WBC 8.4 (4.0-10.5) K/mm3 RBC 4.79 (4.1-5.4) M/mm3 Hgb 14.2 (12.0-16.0) gm/dl Hct 43.1 (35-47) % MCV 90.0 (78-100) fl MCH 29.6 (26-32) pg MCHC 32.9 (32-36) g/dl RDW 12.5 (11.5-14.0) % Plt Count 288 (150-450) K/mm3 MPV 9.4 (7.5-11.0) fl Gran % 76.5 H (36.0-66.0) % Eos # (Auto) 0.05 (0-0.5) Absolute Lymphs (auto) 1.37 (1.0-4.6) Absolute Monos (auto) 0.54 (0.0-1.3) Lymphocytes % 16.3 L (24.0-44.0) % Monocytes % 6.4 (0.0-12.0) % Eosinophils % 0.6 (0.00-5.0) % Basophils % 0.2 (0.0-0.4) % Absolute Granulocytes 6.45 (1.4-6.9) Basophils # 0.02 (0-0.4) D-Dimer (215-500) ng/mL Sodium 141 (137-145) mmol/L Potassium 4.2 (3.5-5.1) mmol/L Chloride 102 (98-107) mmol/L Carbon Dioxide 26 (22-30) mmol/L Anion Gap 17.0 H (5-15) MEQ/L BUN 21 H (7-17) mg/dL Creatinine 0.68 (0.52-1.04) mg/dL Estimated GFR > 60.0 ML/MIN Glucose 138 H (74-106) mg/dL Calcium 9.9 (8.4-10.2) mg/dL Total Bilirubin 0.30 (0.2-1.3) mg/dL AST 53 H (14-36) U/L ALT 87 H (0-35) U/L Alkaline Phosphatase 113 (38-126) U/L Troponin I < 0.012 (0.000-0.034) ng/mL NT-Pro-B Natriuret Pep 24.4 (0-900) pg/mL Serum Total Protein 8.2 (6.3-8.2) g/dL Albumin 4.5 (3.5-5.0) g/dL Lipase 79 (23-300) U/L Influenza Type A Ag (NEGATIVE) Influenza Type B Ag (NEGATIVE) RSV (PCR) (Negative) SARS-CoV-2 (PCR) (NEGATIVE) 02/10/21 02/10/21 02/10/21 Range/Units 09:56 10:28 10:48 WBC (4.0-10.5) K/mm3 RBC (4.1-5.4) M/mm3 Hgb (12.0-16.0) gm/dl Hct (35-47) % MCV (78-100) fl MCH (26-32) pg MCHC (32-36) g/dl RDW (11.5-14.0) % Plt Count (150-450) K/mm3 MPV (7.5-11.0) fl Gran % (36.0-66.0) % Eos # (Auto) (0-0.5) Absolute Lymphs (auto) (1.0-4.6) Absolute Monos (auto) (0.0-1.3) Lymphocytes % (24.0-44.0) % Monocytes % (0.0-12.0) % Eosinophils % (0.00-5.0) % Basophils % (0.0-0.4) % Absolute Granulocytes (1.4-6.9) Basophils # (0-0.4) D-Dimer < 215 L (215-500) ng/mL Sodium (137-145) mmol/L Potassium (3.5-5.1) mmol/L Chloride (98-107) mmol/L Carbon Dioxide (22-30) mmol/L Anion Gap (5-15) MEQ/L BUN (7-17) mg/dL Creatinine (0.52-1.04) mg/dL Estimated GFR ML/MIN Glucose (74-106) mg/dL Calcium (8.4-10.2) mg/dL Total Bilirubin (0.2-1.3) mg/dL AST (14-36) U/L ALT (0-35) U/L Alkaline Phosphatase (38-126) U/L Troponin I < 0.012 (0.000-0.034) ng/mL NT-Pro-B Natriuret Pep (0-900) pg/mL Serum Total Protein (6.3-8.2) g/dL Albumin (3.5-5.0) g/dL Lipase (23-300) U/L Influenza Type A Ag NEGATIVE (NEGATIVE) Influenza Type B Ag NEGATIVE (NEGATIVE) RSV (PCR) NEGATIVE (Negative) SARS-CoV-2 (PCR) NEGATIVE (NEGATIVE) 02/10/21 02/10/21 02/10/21 Range/Units 13:53 16:39 20:04 WBC (4.0-10.5) K/mm3 RBC (4.1-5.4) M/mm3 Hgb (12.0-16.0) gm/dl Hct (35-47) % MCV (78-100) fl MCH (26-32) pg MCHC (32-36) g/dl RDW (11.5-14.0) % Plt Count (150-450) K/mm3 MPV (7.5-11.0) fl Gran % (36.0-66.0) % Eos # (Auto) (0-0.5) Absolute Lymphs (auto) (1.0-4.6) Absolute Monos (auto) (0.0-1.3) Lymphocytes % (24.0-44.0) % Monocytes % (0.0-12.0) % Eosinophils % (0.00-5.0) % Basophils % (0.0-0.4) % Absolute Granulocytes (1.4-6.9) Basophils # (0-0.4) D-Dimer (215-500) ng/mL Sodium (137-145) mmol/L Potassium (3.5-5.1) mmol/L Chloride (98-107) mmol/L Carbon Dioxide (22-30) mmol/L Anion Gap (5-15) MEQ/L BUN (7-17) mg/dL Creatinine (0.52-1.04) mg/dL Estimated GFR ML/MIN Glucose (74-106) mg/dL Calcium (8.4-10.2) mg/dL Total Bilirubin (0.2-1.3) mg/dL AST (14-36) U/L ALT (0-35) U/L Alkaline Phosphatase (38-126) U/L Troponin I < 0.012 < 0.012 < 0.012 (0.000-0.034) ng/mL NT-Pro-B Natriuret Pep (0-900) pg/mL Serum Total Protein (6.3-8.2) g/dL Albumin (3.5-5.0) g/dL Lipase (23-300) U/L Influenza Type A Ag (NEGATIVE) Influenza Type B Ag (NEGATIVE) RSV (PCR) (Negative) SARS-CoV-2 (PCR) (NEGATIVE) - Radiology Impressions Radiology Exams & Impressions: Radiology Procedures Category Date Time Status CHEST 1 VIEW (PORTABLE) Stat Exams 02/10/21 07:43 Completed HEAD WITHOUT CONTRAST [CT] Stat Exams 02/10/21 07:58 Completed Assessment/Plan (1) Chest pain Current Visit: Yes Status: Resolved Qualifiers: Chest pain type: precordial pain Qualified Code(s): R07.2 - Precordial pain Assessment & Plan: will follow with her Machine Oiler,Dr Grimaldo.negative serial troponins Code(s): R07.9 - CHEST PAIN, UNSPECIFIED (2) Hypertensive urgency Current Visit: Yes Status: Resolved Assessment & Plan: will continue a Nitro patch until evaluated by Dr Grimaldo Code(s): I16.0 - HYPERTENSIVE URGENCY (3) Hx of non-ST elevation myocardial infarction (NSTEMI) Current Visit: Yes Status: Resolved Code(s): I25.2 - OLD MYOCARDIAL INFARCTION (4) Anxiety Current Visit: No Status: Chronic Assessment & Plan: continue low dose Klonopin. Code(s): F41.9 - ANXIETY DISORDER, UNSPECIFIED (5) Insomnia Current Visit: Yes Status: Chronic Assessment & Plan: add Tranxene Code(s): G47.00 - INSOMNIA, UNSPECIFIED Hospital Summary - Hospital Course Hospital Course: Patient was admitted with HTN urgency that resolved after Hydralazine and Nitro patch and her daily B/P meds. Chest pain subsided . Tele was NSR and troponins were negative. She will follow with her Machine Oiler ,Dr Grimaldo.I will continue the nitro patch and she will monitor her B/P at home . - Vitals & Intake/Output Vital Signs: Vital Signs Temperature 98.5 F 02/10/21 19:54 Pulse Rate 72 02/10/21 19:54 Respiratory Rate 16 02/10/21 19:54 Blood Pressure 141/74 02/10/21 19:54 O2 Sat by Pulse Oximetry 93 L 02/10/21 19:54 Intake & Output: Intake & Output 02/08/21 02/09/21 02/10/21 02/11/21 11:59 11:59 11:59 11:59 Intake Total 1060 Balance 1060 Weight 81.647 kg 81.8 kg - Lab Result Diagrams: 02/11/21 04:00 02/11/21 04:00 Lab Results-Last 24 Hrs: Lab Results-Last 24 Hours 02/10/21 02/10/21 02/10/21 Range/Units 08:10 08:10 08:10 WBC 8.4 (4.0-10.5) K/mm3 RBC 4.79 (4.1-5.4) M/mm3 Hgb 14.2 (12.0-16.0) gm/dl Hct 43.1 (35-47) % MCV 90.0 (78-100) fl MCH 29.6 (26-32) pg MCHC 32.9 (32-36) g/dl RDW 12.5 (11.5-14.0) % Plt Count 288 (150-450) K/mm3 MPV 9.4 (7.5-11.0) fl Gran % 76.5 H (36.0-66.0) % Eos # (Auto) 0.05 (0-0.5) Absolute Lymphs (auto) 1.37 (1.0-4.6) Absolute Monos (auto) 0.54 (0.0-1.3) Lymphocytes % 16.3 L (24.0-44.0) % Monocytes % 6.4 (0.0-12.0) % Eosinophils % 0.6 (0.00-5.0) % Basophils % 0.2 (0.0-0.4) % Absolute Granulocytes 6.45 (1.4-6.9) Basophils # 0.02 (0-0.4) D-Dimer (215-500) ng/mL Sodium 141 (137-145) mmol/L Potassium 4.2 (3.5-5.1) mmol/L Chloride 102 (98-107) mmol/L Carbon Dioxide 26 (22-30) mmol/L Anion Gap 17.0 H (5-15) MEQ/L BUN 21 H (7-17) mg/dL Creatinine 0.68 (0.52-1.04) mg/dL Estimated GFR > 60.0 ML/MIN Glucose 138 H (74-106) mg/dL Calcium 9.9 (8.4-10.2) mg/dL Total Bilirubin 0.30 (0.2-1.3) mg/dL AST 53 H (14-36) U/L ALT 87 H (0-35) U/L Alkaline Phosphatase 113 (38-126) U/L Troponin I < 0.012 (0.000-0.034) ng/mL NT-Pro-B Natriuret Pep 24.4 (0-900) pg/mL Serum Total Protein 8.2 (6.3-8.2) g/dL Albumin 4.5 (3.5-5.0) g/dL Lipase 79 (23-300) U/L Influenza Type A Ag (NEGATIVE) Influenza Type B Ag (NEGATIVE) RSV (PCR) (Negative) SARS-CoV-2 (PCR) (NEGATIVE) 02/10/21 02/10/21 02/10/21 Range/Units 09:56 10:28 10:48 WBC (4.0-10.5) K/mm3 RBC (4.1-5.4) M/mm3 Hgb (12.0-16.0) gm/dl Hct (35-47) % MCV (78-100) fl MCH (26-32) pg MCHC (32-36) g/dl RDW (11.5-14.0) % Plt Count (150-450) K/mm3 MPV (7.5-11.0) fl Gran % (36.0-66.0) % Eos # (Auto) (0-0.5) Absolute Lymphs (auto) (1.0-4.6) Absolute Monos (auto) (0.0-1.3) Lymphocytes % (24.0-44.0) % Monocytes % (0.0-12.0) % Eosinophils % (0.00-5.0) % Basophils % (0.0-0.4) % Absolute Granulocytes (1.4-6.9) Basophils # (0-0.4) D-Dimer < 215 L (215-500) ng/mL Sodium (137-145) mmol/L Potassium (3.5-5.1) mmol/L Chloride (98-107) mmol/L Carbon Dioxide (22-30) mmol/L Anion Gap (5-15) MEQ/L BUN (7-17) mg/dL Creatinine (0.52-1.04) mg/dL Estimated GFR ML/MIN Glucose (74-106) mg/dL Calcium (8.4-10.2) mg/dL Total Bilirubin (0.2-1.3) mg/dL AST (14-36) U/L ALT (0-35) U/L Alkaline Phosphatase (38-126) U/L Troponin I < 0.012 (0.000-0.034) ng/mL NT-Pro-B Natriuret Pep (0-900) pg/mL Serum Total Protein (6.3-8.2) g/dL Albumin (3.5-5.0) g/dL Lipase (23-300) U/L Influenza Type A Ag NEGATIVE (NEGATIVE) Influenza Type B Ag NEGATIVE (NEGATIVE) RSV (PCR) NEGATIVE (Negative) SARS-CoV-2 (PCR) NEGATIVE (NEGATIVE) 02/10/21 02/10/21 02/10/21 Range/Units 13:53 16:39 20:04 WBC (4.0-10.5) K/mm3 RBC (4.1-5.4) M/mm3 Hgb (12.0-16.0) gm/dl Hct (35-47) % MCV (78-100) fl MCH (26-32) pg MCHC (32-36) g/dl RDW (11.5-14.0) % Plt Count (150-450) K/mm3 MPV (7.5-11.0) fl Gran % (36.0-66.0) % Eos # (Auto) (0-0.5) Absolute Lymphs (auto) (1.0-4.6) Absolute Monos (auto) (0.0-1.3) Lymphocytes % (24.0-44.0) % Monocytes % (0.0-12.0) % Eosinophils % (0.00-5.0) % Basophils % (0.0-0.4) % Absolute Granulocytes (1.4-6.9) Basophils # (0-0.4) D-Dimer (215-500) ng/mL Sodium (137-145) mmol/L Potassium (3.5-5.1) mmol/L Chloride (98-107) mmol/L Carbon Dioxide (22-30) mmol/L Anion Gap (5-15) MEQ/L BUN (7-17) mg/dL Creatinine (0.52-1.04) mg/dL Estimated GFR ML/MIN Glucose (74-106) mg/dL Calcium (8.4-10.2) mg/dL Total Bilirubin (0.2-1.3) mg/dL AST (14-36) U/L ALT (0-35) U/L Alkaline Phosphatase (38-126) U/L Troponin I < 0.012 < 0.012 < 0.012 (0.000-0.034) ng/mL NT-Pro-B Natriuret Pep (0-900) pg/mL Serum Total Protein (6.3-8.2) g/dL Albumin (3.5-5.0) g/dL Lipase (23-300) U/L Influenza Type A Ag (NEGATIVE) Influenza Type B Ag (NEGATIVE) RSV (PCR) (Negative) SARS-CoV-2 (PCR) (NEGATIVE) - Radiology Exams Ordered Rad Exams-Entire Visit: Radiology Procedures Category Date Time Status CHEST 1 VIEW (PORTABLE) Stat Exams 02/10/21 07:43 Completed HEAD WITHOUT CONTRAST [CT] Stat Exams 02/10/21 07:58 Completed - Procedures and Test Procedures and Tests throughout Hospitalization: Therapy Orders & Screens 02/10/21 14:32 Respiratory Therapy Assessment DAILY Comment: Diagnosis: Chest Pain - Discharge Disposition: Home, Self-Care Condition: Stable Prescriptions: New Trazodone HCl 50 mg [Desyrel 50 mg] 50 mg PO QHS PRN #30 tablet PRN Reason: Insomnia Nitroglycerin 0.1MG/Hr [Nitro-Dur 0.1MG/Hr] 0.1 mg TD DAILY #30 patch. td24 Continue Omeprazole 20 MG [Prilosec 20 mg] 20 mg PO BID Clonazepam 0.5 mg [Klonopin 0.5 MG] 0.5 mg PO BID PRN PRN Reason: Anxiety Losartan Potassium [Cozaar] 50 mg PO BID PANTOPRAZOLE 40 mg Tablet [Protonix 40MG Tablet] 40 mg PO QAM Follow up with: LEN GRIMALDO [ACTIVE STAFF] - 02/12/21 10:15 am (at [facility] ) AVA TAYLOR DO [ACTIVE STAFF] - 02/16/21 11:00 am
[2021-02-11 04:58] LABS: Absolute Neutrophil Ct (ANC) 3.68 (1.4-6.9); BASOPHIL % 0.3 % (0.0-0.4); Basophil (Absolute #) 0.02 (0-0.4); Eosinophil % 1.5 % (0.00-5.0); Hematocrit 40.9 % (35-47); Hemoglobin 13.5 gm/dl (12.0-16.0); Lymphocyte (Absolute #) 2.33 (1.0-4.6); Lymphocytes % 34.3 % (24.0-44.0); Mean Cell Volume 90.3 fl (78-100); Mean Corpuscular Hemoglobin 29.8 pg (26-32); Mean Platelet Volume 9.1 fl (7.5-11.0); Monocyte (Absolute #) 0.66 (0.0-1.3); Monocytes % 9.7 % (0.0-12.0); Neutrophil % 54.2 % (36.0-66.0); Platelet Count 253 K/mm3 (150-450); Red Blood Count 4.53 M/mm3 (4.1-5.4); Red Cell Distribution Width 12.7 % (11.5-14.0); White Blood Count 6.8 K/mm3 (4.0-10.5)
[2021-02-11 05:13] LABS: ALKALINE PHOSPHATASE 80 U/L (38-126); ANION GAP 13.9 MEQ/L (5-15); BLOOD UREA NITROGEN 19 mg/dL (7-17); CHLORIDE 102 mmol/L (98-107); Calcium 9.2 mg/dL (8.4-10.2); Carbon Dioxide 27 mmol/L (22-30); Creatinine 1 0.71 mg/dL (0.52-1.04); EST GLOMERULAR FILTRATION RATE > 60.0 ML/MIN; Potassium 4.3 mmol/L (3.5-5.1); SGPT/ALT 73 U/L (0-35); SODIUM 139 mmol/L (137-145); Total Protein 7.4 g/dL (6.3-8.2)
[2021-02-11 05:14] LABS: Glucose 119 mg/dL (74-106); SGOT/AST 40 U/L (14-36)
[2021-02-11 07:27] VITALS: BP 144/68; PULSE 70
[2021-02-11 09:33] VITALS: O2SAT 97
[2021-02-11] MEDS ORDERED: PROTONIX 40 MG IV IV SCH (10:00)
== END 2021-02-11 09:10 | disposition home or self-care (01) ==
LOC: ED 07:35 → MED SURG 12:20
PROVIDERS: ADMIT Family Medicine; ATTEND Family Medicine
DX: R07.9 Chest pain, unspecified (principal); R11.0 Nausea; I16.0 Hypertensive urgency; Z79.899 Other long term (current) drug therapy; I25.2 Old myocardial infarction; R41.0 Disorientation, unspecified; R53.83 Other fatigue; I10 Essential (primary) hypertension; F41.9 Anxiety disorder, unspecified; G47.00 Insomnia, unspecified
CPT/HCPCS: 0241U; 36000; 36415; 70450; 71045; 80053; 83690; 83880; 84484; 85025; 85379; 93005; 93041; 93268; 94762; 96374; 96375; 99285; G0378; J0360; J2270; J2405; A9270-GY

== ENCOUNTER 2021-06-08 08:29 | Emergency (ER) | payer OTHER ==
[2021-06-08 08:47] VITALS: O2SAT 96
[2021-06-08] MEDS ORDERED: Zofran 4 MG/2 ML VIAL ONE (09:37)
[2021-06-08] MEDS ORDERED: MORPHINE SULFATE 2 MG INJ ONE (09:37)
[2021-06-08] MEDS: Zofran 4 MG/2 ML VIAL IV ONE (09:38)
[2021-06-08] MEDS: MORPHINE SULFATE 2 MG INJ IV ONE (09:38)
[2021-06-08 09:40] LABS: ALBUMIN 4.6 g/dL (3.5-5.0); ALKALINE PHOSPHATASE 95 U/L (38-126); ANION GAP 16.3 MEQ/L (5-15); BLOOD UREA NITROGEN 19 mg/dL (7-17); CHLORIDE 102 mmol/L (98-107); Calcium 9.5 mg/dL (8.4-10.2); Carbon Dioxide 26 mmol/L (22-30); EST GLOMERULAR FILTRATION RATE > 60.0 ML/MIN; Glucose 137 mg/dL (74-106); MAGNESIUM 1.8 mg/dL (1.6-2.3); NT PRO BNP 21.4 pg/mL (0-900); Potassium 3.6 mmol/L (3.5-5.1); SGOT/AST 41 U/L (14-36); SGPT/ALT 69 U/L (0-35); SODIUM 141 mmol/L (137-145); Total Protein 8.2 g/dL (6.3-8.2)
--- NOTE | 2021-06-08 09:41 | XRAY ---
Indication: Posterior head pain. Dizziness. Multiple contiguous axial images obtained through the head without contrast. Comparison: February 10, 2021. Normal appearing brain parenchyma, ventricles, and bony calvarium for patient's age. Visualized paranasal sinuses and mastoid air cells are clear. Impression: Continued normal CT head without contrast exam.
--- NOTE | 2021-06-08 09:44 | XRAY ---
Indication: Dizziness. Comparison: February 10, 2021 Portable chest remains clear again with incidental right base calcified granuloma. Heart not enlarged. Bony thorax intact again with mild degenerative changes. No new/acute findings.
[2021-06-08 09:46] LABS: Absolute Neutrophil Ct (ANC) 2.51 (1.4-6.9); BASOPHIL % 0.4 % (0.0-0.4); Basophil (Absolute #) 0.02 (0-0.4); Eosinophil % 1.4 % (0.00-5.0); Eosinophil (Absolute #) 0.07 (0-0.5); Hematocrit 44.7 % (35-47); Hemoglobin 14.8 gm/dl (12.0-16.0); Lymphocyte (Absolute #) 1.92 (1.0-4.6); Lymphocytes % 38.2 % (24.0-44.0); Mean Cell Volume 90.3 fl (78-100); Mean Corpuscular Hemoglobin 29.9 pg (26-32); Mean Corpuscular Hgb Concent. 33.1 g/dl (32-36); Platelet Count 265 K/mm3 (150-450); Red Blood Count 4.95 M/mm3 (4.1-5.4)
[2021-06-08 09:47] VITALS: PULSE 69
[2021-06-08 09:47] LABS: Appearance CLOUDY (CLEAR); Bacteria FEW /HPF (NEGATIVE); Bilirubin NEGATIVE (NEGATIVE); Blood SMALL Ery/ul (0-5); Epithelial Cells FEW /HPF (FEW); Glucose NEGATIVE (NEGATIVE); Ketones NEGATIVE (NEGATIVE); Leukocyte Esterase LARGE (NEGATIVE); Mucus SLIGHT /HPF (NEGATIVE); Nitrite NEGATIVE (NEGATIVE); Protein,Urine Dip 30 (Negative); Specific Gravity 1.021 (1.005-1.025); Urobilinogen NEGATIVE mg/dL (0-1); WBC 26-50 /HPF (0-5)
[2021-06-08 09:57] LABS: Amphetamine,Urine NEGATIVE (NEGATIVE); Barbiturate,Urine NEGATIVE (NEGATIVE); Benzodiazepine,Urine NEGATIVE (NEGATIVE); Cocaine,Urine NEGATIVE (NEGATIVE); Methadone,Urine NEGATIVE (NEGATIVE); Opiate,Urine NEGATIVE (NEGATIVE); PCP,Urine NEGATIVE (NEGATIVE); THC,Urine NEGATIVE (NEGATIVE)
[2021-06-08] MEDS ORDERED: ROCEPHIN 1 Gm-D5w 50 ml Bag** 1 G/50 ML IVPB IV ONE (10:06)
[2021-06-08] MEDS: ROCEPHIN 1 Gm-D5w 50 ml Bag** 1 G/50 ML IVPB IV STA (10:07)
[2021-06-08 10:22] VITALS: BP 154/89
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
== END 2021-06-08 11:00 | disposition home or self-care (01) ==
LOC: ED 08:29
DX: R53.1 Weakness (principal); F41.9 Anxiety disorder, unspecified; R53.83 Other fatigue; N39.0 Urinary tract infection, site not specified; R42 Dizziness and giddiness; R41.0 Disorientation, unspecified; M54.9 Dorsalgia, unspecified; Z79.899 Other long term (current) drug therapy
CPT/HCPCS: 36000; 36415; 70450; 71045; 80053; 80307; 81001; 83605; 83735; 83880; 84484; 85025; 87086; 93005; 93041; 96365; 96374; 96375; 99284; J0696; J2270; J2405

== ENCOUNTER 2021-07-05 01:57 | Emergency (ER) | payer OTHER ==
--- NOTE | 2021-07-05 02:01 | ERPHSYRPT ---
- History of Present Illness Time Seen by Provider: 07/05/21 02:01 Historian: patient Exam Limitations: no limitations Physician History: This is an obese 55-year-old white female patient of Dr. Philip who has severe anxiety issues and presents today with significant abdominal pain. Patient has a history of coronary artery disease and has had cardiac stents in the past. Patient has a history of hypertension, gastroesophageal reflux disease and panic disorder. She does not have chest pain today. She has had a section in the past as well as cholecystectomy. Patient states that she is allergic to Dilaudid but can take morphine without any problems. Patient was fine 24 hours ago. Patient denies nausea and vomiting. She has had some loose stools. She denies cough she denies chest pain. She has not had a fever. Timing/Duration: today Activities at Onset: none Quality: aching, cramping Abdominal Pain Onset Location: generalized abdomen Pain Radiation: no radiation Severity of Pain-Max: moderate Severity of Pain-Current: moderate Modifying Factors: Improves With: nothing. Worsens With: coughing, urinating, vomiting Associated Symptoms: diarrhea, No chest pain, No fever/chills, No loss of appetite, No nausea, No vomiting Previous symptoms: same symptoms as today Allergies/Adverse Reactions: hydromorphone [From Dilaudid] Adverse Reaction (Verified 07/05/21 02:17) iv contrast Allergy (Uncoded 06/08/21 08:47) Home Medications: Omeprazole 20 MG [Prilosec 20 mg] 20 mg PO BID 02/02/18 [History] Losartan Potassium [Cozaar] 50 mg PO BID 05/13/19 [History] PANTOPRAZOLE 40 mg Tablet [Protonix 40MG Tablet] 40 mg PO QAM 02/10/21 [History] Cyclobenzaprine HCl 5 mg PO BID PRN 06/08/21 [History] Hx Tetanus, Diphtheria Vaccination/Date Given: No Hx Influenza Vaccination/Date Given: No Hx Pneumococcal Vaccination/Date Given: No Travel Risk - International Travel Have you traveled outside of the country in past 3 weeks: No - Coronavirus Screening Are you exhibiting any of the following symptoms?: No Close contact with a COVID-19 positive Pt in past 14-21 Days: No - Vaccine Status Have you recieved a Covid-19 vaccination: No - Review of Systems Constitutional: No Symptoms Eyes: No Symptoms Ears, Nose, & Throat: No Symptoms Respiratory: No Symptoms Cardiac: No Symptoms Abdominal/Gastrointestinal: Abdominal Pain, No Nausea, No Vomiting, No Diarrhea Genitourinary Symptoms: No Symptoms Musculoskeletal: No Symptoms Skin: No Symptoms Neurological: No Symptoms Psychological: Anxiety Endocrine: No Symptoms Hematologic/Lymphatic: No Symptoms Immunological/Allergic: No Symptoms All Other Systems: Reviewed and Negative - Past Medical History Pertinent Past Medical History: Yes Neurological History: No Pertinent History ENT History: No Pertinent History Cardiac History: Hypertension, Myocardial Infarction ([place]) Respiratory History: No Pertinent History Endocrine Medical History: No Pertinent History Musculoskeletal History: Fibromyalgia, Osteoarthritis GI Medical History: Diverticulosis, GERD History: No Pertinent History Psycho-Social History: Anxiety, Depression Female Reproductive Disorders: No Pertinent History Other Medical History: PMHX: ANXIETY, GERD. HX [place] 2017 - NO BLOCKAGES - CLEARED BY PST SUPERVISOR - [place] DUE TO SEVERE STRESS. PATIENT REPORTS OA IN HANDS - Past Surgical History Past Surgical History: Yes Neuro Surgical History: No Pertinent History Cardiac: No Pertinent History, Cardiac Stent Respiratory: No Pertinent History Gastrointestinal: Cholecystectomy Genitourinary: Other Musculoskeletal: No Pertinent History Female Surgical History: Section Other Surgical History: stints placed in bilat kidneys - Social History Smoking Status: Never smoker Exposure to second hand smoke: No Alcohol Use: None Drug Use: none Patient Lives Alone: No Significant Family History: no pertinent family hx, diabetes, hypertension - Nursing Vital Signs Nursing Vital Signs: Initial Vital Signs Temperature 97.1 F 07/05/21 02:07 Pulse Rate 92 H 07/05/21 02:07 Respiratory Rate 22 07/05/21 02:07 Blood Pressure 180/107 07/05/21 02:07 O2 Sat by Pulse Oximetry 100 07/05/21 02:07 Pain Scale Pain Intensity 0 - Physical Exam General Appearance: mild distress, alert, anxiety, obese Eye Exam: PERRL/EOMI, eyes nml inspection Ears, Nose, Throat Exam: normal ENT inspection, moist mucous membranes Neck Exam: normal inspection, non-tender, supple, full range of motion Respiratory Exam: normal breath sounds, lungs clear, airway intact, No chest tenderness, No respiratory distress Cardiovascular Exam: regular rate/rhythm, normal heart sounds, normal peripheral pulses, other Gastrointestinal/Abdomen Exam: soft, normal bowel sounds, tenderness, guarding, No rebound Pelvic Exam: not done Rectal Exam: not done Back Exam: normal inspection, normal range of motion, No CVA tenderness, No vertebral tenderness Extremity Exam: normal inspection, normal range of motion, pelvis stable Neurologic Exam: alert, oriented x 3, cooperative, maintenance mechanic telephone II-XII nml as tested, normal mood/affect, nml cerebellar function, nml station & gait, sensation nml Skin Exam: normal color, warm, dry Lymphatic Exam: No adenopathy SpO2 Interpretation: normal O2 Delivery: Room Air - Course Nursing assessment & vital signs reviewed: Yes Ordered Tests: Active Orders 24 hr Category Date Time Status EKG-ER Only STAT Care 07/05/21 02:17 Active IV Insertion STAT Care 07/05/21 02:17 Active ABDOMEN AND PELVIS W/0 CONTRAS [CT] Stat Exams 07/05/21 02:18 Taken AMYLASE Stat Lab 07/05/21 02:33 Completed CBC W DIFF Stat Lab 07/05/21 02:33 Completed CMP Stat Lab 07/05/21 02:33 Completed CULTURE,URINE Stat Lab 07/05/21 02:33 Received LIPASE Stat Lab 07/05/21 02:33 Completed Lactic Acid Stat Lab 07/05/21 02:40 Completed TROPONIN Q3H Lab 07/05/21 02:35 Completed TROPONIN Q3H Lab 07/05/21 05:30 Ordered TROPONIN Q3H Lab 07/05/21 08:30 Ordered TROPONIN Q3H Lab 07/05/21 11:30 Ordered TROPONIN Q3H Lab 07/05/21 14:30 Ordered UA W/RFX UR CULTURE Stat Lab 07/05/21 02:33 Completed Medication Summary Generic Name Dose Route Start Last Admin Trade Name Freq PRN Reason Stop Dose Admin Clonidine 0.1 mg 07/05/21 04:02 Catapres 0.1 Mg PO 07/05/21 04:03 STAT ONE Morphine Sulfate 2 mg 07/05/21 04:00 Morphine Sulfate 2 Mg Inj IV 07/05/21 04:01 STAT ONE Potassium Chloride 10 meq 07/05/21 04:03 Klor Con 10 Meq PO 07/05/21 04:04 STAT ONE Discontinued Medications Generic Name Dose Route Start Last Admin Trade Name Freq PRN Reason Stop Dose Admin Clonidine Confirm 07/05/21 03:55 Catapres 0.1 Mg Administered 07/05/21 03:56 Dose 0.2 mg .ROUTE .STK-MED ONE Hydromorphone HCl Confirm 07/05/21 03:57 Hydromorphone 1 Mg/Ml Injection Administered 07/05/21 03:58 Dose 1 mg .ROUTE .STK-MED ONE Sodium Chloride 1,000 mls @ 999 mls/hr 07/05/21 02:17 07/05/21 02:45 Sodium Chloride 0.9% 1000 Ml IV 07/05/21 03:17 999 mls/hr .Q1H1M STA Administration Sodium Chloride Confirm 07/05/21 02:43 Sodium Chloride 0.9% 1000 Ml Administered 07/05/21 02:44 Dose 1,000 mls @ ud .ROUTE .STK-MED ONE Ceftriaxone Sodium/Dextrose 1 g in 50 mls @ 100 mls/hr 07/05/21 03:13 07/05/21 03:24 Rocephin 1 Gm-D5w 50 Ml Bag IV 07/05/21 03:42 100 mls/hr STAT STA 100 mls/hr Administration Ceftriaxone Sodium/Dextrose Confirm 07/05/21 03:22 Rocephin 1 Gm-D5w 50 Ml Bag Administered 07/05/21 03:23 Dose 1 g in 50 mls @ ud IV .STK-MED ONE Lorazepam 1 mg 07/05/21 02:18 07/05/21 02:47 Ativan 2 Mg/1 Ml Vial IV 07/05/21 02:19 1 mg STAT ONE Administration Lorazepam Confirm 07/05/21 02:42 Ativan 2 Mg/1 Ml Vial Administered 07/05/21 02:43 Dose 2 mg .ROUTE .STK-MED ONE Morphine Sulfate 2 mg 07/05/21 02:17 07/05/21 02:50 Morphine Sulfate 2 Mg Inj IV 07/05/21 02:18 2 mg STAT ONE Administration Morphine Sulfate Confirm 07/05/21 02:43 Morphine Sulfate 2 Mg Inj Administered 07/05/21 02:44 Dose 2 mg .ROUTE .STK-MED ONE Pantoprazole Sodium 40 mg 07/05/21 02:17 07/05/21 02:47 Protonix 40 Mg Iv IV 07/05/21 02:18 40 mg STAT ONE Administration Pantoprazole Sodium Confirm 07/05/21 02:43 Protonix 40 Mg Iv Administered 07/05/21 02:44 Dose 40 mg IV .STK-MED ONE Prochlorperazine Edisylate 10 mg 07/05/21 02:17 07/05/21 02:49 Compazine 10 Mg/2 Ml IV 07/05/21 02:18 10 mg STAT ONE Administration Prochlorperazine Edisylate Confirm 07/05/21 02:43 Compazine 10 Mg/2 Ml Administered 07/05/21 02:44 Dose 10 mg .ROUTE .STK-MED ONE Lab/Rad Data: Laboratory Result Diagrams 07/05/21 02:33 07/05/21 02:33 Laboratory Results 07/05/21 07/05/21 07/05/21 Range/Units 02:40 02:35 02:33 WBC (4.0-10.5) K/mm3 RBC (4.1-5.4) M/mm3 Hgb (12.0-16.0) gm/dl Hct (35-47) % MCV (78-100) fl MCH (26-32) pg MCHC (32-36) g/dl RDW (11.5-14.0) % Plt Count (150-450) K/mm3 MPV (7.5-11.0) fl Gran % (36.0-66.0) % Eos # (Auto) (0-0.5) Absolute Lymphs (auto) (1.0-4.6) Absolute Monos (auto) (0.0-1.3) Lymphocytes % (24.0-44.0) % Monocytes % (0.0-12.0) % Eosinophils % (0.00-5.0) % Basophils % (0.0-0.4) % Absolute Granulocytes (1.4-6.9) Basophils # (0-0.4) Sodium 141 (137-145) mmol/L Potassium 3.3 L (3.5-5.1) mmol/L Chloride 103 (98-107) mmol/L Carbon Dioxide 25 (22-30) mmol/L Anion Gap 16.0 H (5-15) MEQ/L BUN 15 (7-17) mg/dL Creatinine 0.58 (0.52-1.04) mg/dL Estimated GFR > 60.0 ML/MIN Glucose 164 H (74-106) mg/dL Lactic Acid 1.3 (0.4-2.0) Calcium 9.7 (8.4-10.2) mg/dL Total Bilirubin 0.40 (0.2-1.3) mg/dL AST 39 H (14-36) U/L ALT 58 H (0-35) U/L Alkaline Phosphatase 101 (38-126) U/L Troponin I < 0.012 (0.000-0.034) ng/mL Serum Total Protein 8.3 H (6.3-8.2) g/dL Albumin 4.7 (3.5-5.0) g/dL Amylase 93 (30-110) U/L Lipase 83 (23-300) U/L Urine Color (YELLOW) Urine Appearance (CLEAR) Urine pH (5-6) Ur Specific [place] (1.005-1.025) Urine Protein (Negative) Urine Ketones (NEGATIVE) Urine Blood (0-5) Dilip/ul Urine Nitrite (NEGATIVE) Urine Bilirubin (NEGATIVE) Urine Urobilinogen (0-1) mg/dL Ur Leukocyte Esterase (NEGATIVE) Urine WBC (Auto) (0-5) /HPF Urine RBC (Auto) (0-2) /HPF U Epithel Cells (Auto) (FEW) /HPF Urine Bacteria (Auto) (NEGATIVE) /HPF Urine Mucus (Auto) (NEGATIVE) /HPF Urine Culture Reflexed (NO) Urine Glucose (NEGATIVE) mg/dL 07/05/21 07/05/21 Range/Units 02:33 02:33 WBC 8.4 (4.0-10.5) K/mm3 RBC 4.86 (4.1-5.4) M/mm3 Hgb 14.8 (12.0-16.0) gm/dl Hct 43.4 (35-47) % MCV 89.3 (78-100) fl MCH 30.5 (26-32) pg MCHC 34.1 (32-36) g/dl RDW 12.8 (11.5-14.0) % Plt Count 275 (150-450) K/mm3 MPV 9.4 (7.5-11.0) fl Gran % 68.9 H (36.0-66.0) % Eos # (Auto) 0.04 (0-0.5) Absolute Lymphs (auto) 1.99 (1.0-4.6) Absolute Monos (auto) 0.56 (0.0-1.3) Lymphocytes % 23.7 L (24.0-44.0) % Monocytes % 6.7 (0.0-12.0) % Eosinophils % 0.5 (0.00-5.0) % Basophils % 0.2 (0.0-0.4) % Absolute Granulocytes 5.80 (1.4-6.9) Basophils # 0.02 (0-0.4) Sodium (137-145) mmol/L Potassium (3.5-5.1) mmol/L Chloride (98-107) mmol/L Carbon Dioxide (22-30) mmol/L Anion Gap (5-15) MEQ/L BUN (7-17) mg/dL Creatinine (0.52-1.04) mg/dL Estimated GFR ML/MIN Glucose (74-106) mg/dL Lactic Acid (0.4-2.0) Calcium (8.4-10.2) mg/dL Total Bilirubin (0.2-1.3) mg/dL AST (14-36) U/L ALT (0-35) U/L Alkaline Phosphatase (38-126) U/L Troponin I (0.000-0.034) ng/mL Serum Total Protein (6.3-8.2) g/dL Albumin (3.5-5.0) g/dL Amylase (30-110) U/L Lipase (23-300) U/L Urine Color YELLOW (YELLOW) Urine Appearance SLIGHTLY CLOUDY (CLEAR) Urine pH 7.0 (5-6) Ur Specific [place] 1.015 (1.005-1.025) Urine Protein 30 (Negative) Urine Ketones NEGATIVE (NEGATIVE) Urine Blood NEGATIVE (0-5) Dilip/ul Urine Nitrite NEGATIVE (NEGATIVE) Urine Bilirubin NEGATIVE (NEGATIVE) Urine Urobilinogen NEGATIVE (0-1) mg/dL Ur Leukocyte Esterase SMALL (NEGATIVE) Urine WBC (Auto) 16-25 (0-5) /HPF Urine RBC (Auto) 0-2 (0-2) /HPF U Epithel Cells (Auto) RARE (FEW) /HPF Urine Bacteria (Auto) NONE (NEGATIVE) /HPF Urine Mucus (Auto) SLIGHT (NEGATIVE) /HPF Urine Culture Reflexed YES (NO) Urine Glucose 50 (NEGATIVE) mg/dL - Progress Progress: improved Progress Note: 07/05/21 04:04 CAT scan of the abdomen and pelvis without contrast shows diverticulosis. No evidence of acute appendicitis. No acute process in the abdomen or pelvis. Counseled pt/family regarding: lab results, diagnosis, need for follow-up, rad results - Departure Departure Disposition: Home Clinical Impression: UTI (urinary tract infection), Hypertension Condition: Stable Critical Care Time: No Referrals: AVA PHILIP DO [Primary Care Provider] - Additional Instructions: Drink plenty of fluids. Take your antibiotics as prescribed. Follow-up with your primary care physician for further management of your blood pressure. Prescriptions: Ciprofloxacin [Cipro 500 MG] 500 mg PO BID #14 tablet
[2021-07-05] MEDS ORDERED: Sodium Chloride 0.9% 1000 ML 1,000 ML IV STA (02:17)
[2021-07-05] MEDS ORDERED: MORPHINE SULFATE 2 MG INJ IV ONE ×2 (02:17→04:00)
[2021-07-05] MEDS ORDERED: Compazine 10 MG/2 ML IV ONE (02:17)
[2021-07-05] MEDS ORDERED: PROTONIX 40 MG IV IV ONE ×2 (02:17→02:43)
[2021-07-05] MEDS ORDERED: Ativan 2 MG/1 ML VIAL IV ONE (02:18)
[2021-07-05] MEDS ORDERED: Ativan 2 MG/1 ML VIAL ONE (02:42)
[2021-07-05] MEDS ORDERED: MORPHINE SULFATE 2 MG INJ ONE ×2 (02:43→04:09)
[2021-07-05] MEDS ORDERED: Sodium Chloride 0.9% 1000 ML 1,000 ML ONE (02:43)
[2021-07-05] MEDS ORDERED: Compazine 10 MG/2 ML ONE (02:43)
[2021-07-05 02:48] LABS: BASOPHIL % 0.2 % (0.0-0.4); Basophil (Absolute #) 0.02 (0-0.4); Eosinophil % 0.5 % (0.00-5.0); Eosinophil (Absolute #) 0.04 (0-0.5); Hematocrit 43.4 % (35-47); Hemoglobin 14.8 gm/dl (12.0-16.0); Lymphocyte (Absolute #) 1.99 (1.0-4.6); Lymphocytes % 23.7 % (24.0-44.0); Mean Cell Volume 89.3 fl (78-100); Mean Corpuscular Hemoglobin 30.5 pg (26-32); Mean Corpuscular Hgb Concent. 34.1 g/dl (32-36); Mean Platelet Volume 9.4 fl (7.5-11.0); Monocyte (Absolute #) 0.56 (0.0-1.3); Monocytes % 6.7 % (0.0-12.0); Neutrophil % 68.9 % (36.0-66.0); Platelet Count 275 K/mm3 (150-450); Red Blood Count 4.86 M/mm3 (4.1-5.4); Red Cell Distribution Width 12.8 % (11.5-14.0); White Blood Count 8.4 K/mm3 (4.0-10.5)
[2021-07-05 03:04] LABS: Appearance SLIGHTLY CLOUDY (CLEAR); Bilirubin NEGATIVE (NEGATIVE); Blood NEGATIVE Ery/ul (0-5); Epithelial Cells RARE /HPF (FEW); Glucose 50 mg/dL (NEGATIVE); Ketones NEGATIVE (NEGATIVE); Leukocyte Esterase SMALL (NEGATIVE); Mucus SLIGHT /HPF (NEGATIVE); Nitrite NEGATIVE (NEGATIVE); Protein,Urine Dip 30 (Negative); RBC 0-2 /HPF (0-2); Specific Gravity 1.015 (1.005-1.025); Urobilinogen NEGATIVE mg/dL (0-1)
[2021-07-05 03:07] LABS: ALBUMIN 4.7 g/dL (3.5-5.0); ALKALINE PHOSPHATASE 101 U/L (38-126); AMYLASE 93 U/L (30-110); BLOOD UREA NITROGEN 15 mg/dL (7-17); CHLORIDE 103 mmol/L (98-107); Calcium 9.7 mg/dL (8.4-10.2); Carbon Dioxide 25 mmol/L (22-30); Creatinine 1 0.58 mg/dL (0.52-1.04); EST GLOMERULAR FILTRATION RATE > 60.0 ML/MIN; Glucose 164 mg/dL (74-106); LIPASE 83 U/L (23-300); Potassium 3.3 mmol/L (3.5-5.1); SGOT/AST 39 U/L (14-36); SGPT/ALT 58 U/L (0-35); SODIUM 141 mmol/L (137-145); Total Protein 8.3 g/dL (6.3-8.2)
[2021-07-05] MEDS ORDERED: ROCEPHIN 1 Gm-D5w 50 ml Bag** 1 G/50 ML IVPB IV STA (03:13)
[2021-07-05] MEDS ORDERED: ROCEPHIN 1 Gm-D5w 50 ml Bag** 1 G/50 ML IVPB IV ONE (03:22)
[2021-07-05 03:51] VITALS: PULSE 102; O2SAT 95
[2021-07-05] MEDS ORDERED: Catapres 0.1 MG ONE (03:55)
[2021-07-05] MEDS ORDERED: Hydromorphone 1 mg/ml Injection ONE (03:57)
[2021-07-05] MEDS ORDERED: Catapres 0.1 MG PO ONE ×2 (04:02→04:07)
[2021-07-05] MEDS ORDERED: Klor Con 10 MEQ PO ONE ×2 (04:03→04:09)
[2021-07-05 04:50] VITALS: BP 178/88
--- NOTE | 2021-07-05 08:57 | XRAY ---
Indication: Abdomen pain. History GERD and IBS. Multiple contiguous axial images obtained through the abdomen and pelvis without contrast. Comparison: Degenerative 2020. Lung bases again demonstrates stable right lower lobe calcified and left lower lobe noncalcified granulomas. No infiltrate or effusion. Heart not enlarged. Noncontrasted stomach and bowel loops nonobstructed. There remains scattered colonic diverticulosis without diverticulitis. Again fatty liver and cholecystectomy. No free fluid/air. Remaining liver, pancreas, spleen, adrenal glands, kidneys, ureters, bladder, uterus, and aorta are unremarkable for noncontrast exam. Osseous structures intact again with mild degenerative changes throughout the thoracolumbar spine. Impression: 1. Again incidental colonic diverticulosis, fatty liver, chronic bony findings, and old granulomatous disease. 2. Remaining CT abdomen/pelvis without contrast exam is negative. Comment: Preliminary interpretation made by [facility]. No critical discrepancy.
== END 2021-07-05 04:50 | disposition home or self-care (01) ==
LOC: ED 01:57
DX: N39.0 Urinary tract infection, site not specified (principal); I10 Essential (primary) hypertension; I25.10 Atherosclerotic heart disease of native coronary artery without angina pectoris; R19.7 Diarrhea, unspecified; Z79.899 Other long term (current) drug therapy; R10.9 Unspecified abdominal pain; I25.2 Old myocardial infarction
CPT/HCPCS: 36000; 36415; 74176; 80053; 81001; 82150; 83605; 83690; 84484; 85025; 87086; 93005; 96360; 96365; 96374; 96375; 96376; 99285; J0696; J1170; J2060; J2270; A9270-GY

== ENCOUNTER 2021-07-27 04:50 | Emergency (ER) | payer OTHER ==
[2021-07-27 05:07] VITALS: BP 169/117; PULSE 107; O2SAT 100
== END 2021-07-27 05:12 | disposition left against medical advice (07) ==
LOC: ED 04:50
DX: M54.9 Dorsalgia, unspecified (principal); R10.9 Unspecified abdominal pain
CPT/HCPCS: 99283

== ENCOUNTER 2021-08-10 21:51 | Emergency (ER) | payer OTHER ==
[2021-08-10 22:05] VITALS: BP 203/96; PULSE 82; O2SAT 99
[2021-08-10] MEDS ORDERED: Inapsine 5 MG/2 ML IV ONE (22:30)
[2021-08-10] MEDS ORDERED: Sodium Chloride 0.9% 1000 ML 1,000 ML IV STA (22:30)
[2021-08-10] MEDS ORDERED: Sodium Chloride 0.9% 1000 ML 1,000 ML ONE (22:41)
[2021-08-10] MEDS ORDERED: Inapsine 5 MG/2 ML ONE (22:41)
[2021-08-10 22:45] LABS: Appearance CLEAR (CLEAR); Bilirubin NEGATIVE (NEGATIVE); Blood NEGATIVE Ery/ul (0-5); Epithelial Cells RARE /HPF (FEW); Glucose 150 mg/dL (NEGATIVE); Ketones NEGATIVE (NEGATIVE); Leukocyte Esterase TRACE (NEGATIVE); Nitrite NEGATIVE (NEGATIVE); Protein,Urine Dip NEGATIVE (Negative); Specific Gravity 1.006 (1.005-1.025); Urobilinogen NEGATIVE mg/dL (0-1)
--- NOTE | 2021-08-10 23:11 | ERPHSYRPT ---
- History of Present Illness Time Seen by Provider: 08/10/21 22:00 Historian: patient Exam Limitations: no limitations Patient Subjective Stated Complaint: pt states, "I'm having a gallbladder attack but I don't have a gallbladder. I feel so bad". Triage Nursing Assessment: pt anxious upon arrival and got more anxious as she was here. Pt c/o abd pain, states, "I'm having a gallbladder attack but I don't have a gallbladder anymore. I feel so bad". Abd soft with active bs x4 quad, tender on palpation. LBM today. Pt denies any vomiting. Pt states, "I've been through so much lately, my 3 years ago and I've had to deal with alot of stuff lately". Pt began breathing rapid and heavy once here as in a panic/anxiety attack. Pt states, "I think I have dementia, I'm getting more forgetful but all this seems to happen when the sun goes down". Physician History: Patient is a 55-year-old female presents to our ED for evaluation of generalized abdominal pain that started 2 days ago. Patient states the pain is "everywhere". Patient states it could be her gallbladder but her gallbladder was removed. Patient states she is nauseous. No vomiting. No diarrhea. Patient's last bowel movement was today. Bowel movement was normal. Patient is hyperventilating. Patient states she is very anxious. Patient states that her 3 years ago she feels that she is having a anxiety attack in part due to her passing. No chest pain. No diaphoresis. Symptoms are constant. Symptoms are moderate in intensity. No specific worsening or improving factors. Patient voices no other complaints or concerns at this time. Timing/Duration: day(s) Activities at Onset: none Quality: aching Abdominal Pain Onset Location: generalized abdomen Pain Radiation: no radiation Severity of Pain-Max: moderate Severity of Pain-Current: mild (2 days ago.) Associated Symptoms: nausea, No chest pain, No diarrhea, No shortness of breath, No vomiting, No weakness Previous symptoms: no prior history Allergies/Adverse Reactions: hydromorphone [From Dilaudid] Adverse Reaction (Verified 08/10/21 22:15) iv contrast Allergy (Uncoded 07/27/21 05:03) Home Medications: Omeprazole 20 MG [Prilosec 20 mg] 20 mg PO BID 02/02/18 [History] Losartan Potassium [Cozaar] 50 mg PO DAILY 05/13/19 [History] PANTOPRAZOLE 40 mg Tablet [Protonix 40MG Tablet] 40 mg PO BID 02/10/21 [History] Cyclobenzaprine HCl 5 mg PO BID PRN 06/08/21 [History] Hx Tetanus, Diphtheria Vaccination/Date Given: No Hx Influenza Vaccination/Date Given: No Hx Pneumococcal Vaccination/Date Given: No Immunizations Up to Date: No Travel Risk - International Travel Have you traveled outside of the country in past 3 weeks: No - Coronavirus Screening Are you exhibiting any of the following symptoms?: No Close contact with a COVID-19 positive Pt in past 14-21 Days: No - Vaccine Status Have you recieved a Covid-19 vaccination: Yes Vice President 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 Dates if Unknown: unknown - Review of Systems Constitutional: No Symptoms, No Fever, No Chills Eyes: No Symptoms Ears, Nose, & Throat: No Symptoms Respiratory: No Symptoms, No Cough, No Dyspnea Cardiac: No Symptoms, No Chest Pain, No Edema, No Syncope Abdominal/Gastrointestinal: No Symptoms, No Abdominal Pain, No Nausea, No Vomiting, No Diarrhea Genitourinary Symptoms: No Symptoms, No Dysuria Musculoskeletal: No Symptoms, No Back Pain, No Neck Pain Skin: No Symptoms, No Rash Neurological: No Symptoms, No Dizziness, No Focal Weakness, No Sensory Changes Psychological: No Symptoms Endocrine: No Symptoms Hematologic/Lymphatic: No Symptoms Immunological/Allergic: No Symptoms All Other Systems: Reviewed and Negative - Past Medical History Pertinent Past Medical History: Yes Neurological History: No Pertinent History ENT History: No Pertinent History Cardiac History: Hypertension, Myocardial Infarction ([place]) Respiratory History: No Pertinent History Endocrine Medical History: No Pertinent History Musculoskeletal History: Fibromyalgia, Osteoarthritis GI Medical History: Diverticulosis, GERD History: No Pertinent History Psycho-Social History: Anxiety, Depression Female Reproductive Disorders: No Pertinent History Other Medical History: PMHX: ANXIETY, GERD. HX [place] 2017 - NO BLOCKAGES - CLEARED BY RESIDENTIAL SOLAR CONSULTANT - [place] DUE TO SEVERE STRESS. PATIENT REPORTS OA IN HANDS - Past Surgical History Past Surgical History: Yes Neuro Surgical History: No Pertinent History Cardiac: Cardiac Stent Respiratory: No Pertinent History Gastrointestinal: Cholecystectomy Genitourinary: Other Musculoskeletal: No Pertinent History Female Surgical History: Section Other Surgical History: stints placed in bilat kidneys - Social History Smoking Status: Never smoker Exposure to second hand smoke: No Alcohol Use: None Drug Use: none Patient Lives Alone: No Significant Family History: no pertinent family hx, diabetes, hypertension - Female History Hx Now: No - Nursing Vital Signs Nursing Vital Signs: Initial Vital Signs Temperature 97.4 F 08/10/21 21:52 Pulse Rate 82 08/10/21 21:52 Respiratory Rate 18 08/10/21 21:52 Blood Pressure 203/96 08/10/21 21:52 O2 Sat by Pulse Oximetry 99 08/10/21 21:52 Pain Scale Pain Intensity 7 - Physical Exam General Appearance: no apparent distress, alert, other (Patient appears very anxious. She is hyperventilating. It is difficult to get a complete history due to high anxiety level.) Eye Exam: PERRL/EOMI, eyes nml inspection Ears, Nose, Throat Exam: normal ENT inspection, pharynx normal, moist mucous membranes Neck Exam: normal inspection, non-tender, supple, full range of motion Respiratory Exam: normal breath sounds, lungs clear, airway intact, No chest tenderness, No respiratory distress Cardiovascular Exam: regular rate/rhythm, normal heart sounds, normal peripheral pulses, No murmur Gastrointestinal/Abdomen Exam: soft, normal bowel sounds, tenderness (Diffuse abdominal tenderness. Abdomen is soft.), No mass Back Exam: normal inspection, normal range of motion, No CVA tenderness, No aleksander tebral tenderness Extremity Exam: normal inspection, normal range of motion, pelvis stable Neurologic Exam: alert, oriented x 3, cooperative, normal mood/affect, sensation nml, No motor deficits Skin Exam: normal color, warm, dry Lymphatic Exam: No adenopathy SpO2 Interpretation: normal SpO2: 99 O2 Delivery: Room Air - Course Nursing assessment & vital signs reviewed: Yes Ordered Tests: Active Orders 24 hr Category Date Time Status AMA [Release AMA] OM.NOW Care 08/10/21 23:04 Active IV Insertion STAT Care 08/10/21 22:30 Ordered ABDOMEN AND PELVIS W/0 CONTRAS [CT] Stat Exams 08/10/21 22:31 Ordered CBC W DIFF Stat Lab 08/10/21 22:30 Ordered CMP Stat Lab 08/10/21 22:30 Ordered TROPONIN Q3H Lab 08/10/21 22:45 Ordered TROPONIN Q3H Lab 08/11/21 01:45 Ordered TROPONIN Q3H Lab 08/11/21 04:45 Ordered TROPONIN Q3H Lab 08/11/21 07:45 Ordered TROPONIN Q3H Lab 08/11/21 10:45 Ordered UA W/RFX UR CULTURE Stat Lab 08/10/21 22:31 Ordered Medication Summary Generic Name Dose Route Start Last Admin Trade Name Freq PRN Reason Stop Dose Admin Sodium Chloride 1,000 mls @ 999 mls/hr 08/10/21 22:30 08/10/21 22:42 Sodium Chloride 0.9% 1000 Ml IV 08/10/21 23:30 999 mls/hr .Q1H1M STA Administration Discontinued Medications Generic Name Dose Route Start Last Admin Trade Name Freq PRN Reason Stop Dose Admin Droperidol 1.25 mg 08/10/21 22:30 08/10/21 22:42 Inapsine 5 Mg/2 Ml IV 08/10/21 22:31 1.25 mg STAT ONE Administration Droperidol Confirm 08/10/21 22:41 Inapsine 5 Mg/2 Ml Administered 08/10/21 22:42 Dose 5 mg .ROUTE .STK-MED ONE Sodium Chloride Confirm 08/10/21 22:41 Sodium Chloride 0.9% 1000 Ml Administered 08/10/21 22:42 Dose 1,000 mls @ ud .ROUTE .STK-MED ONE - Progress Progress: unchanged Progress Note: I was notified by staff that patient absconded. Patient reportedly questioned the medication she received. Patient states that she does not believe that p articular medicine would help. Patient is allergic to Dilaudid. Staff reports that they were able to obtain blood work before patient decided she would leave. Patient did not specify which medication she wanted in particular. Portions of this note were created with voice recognition technology. There may be grammatical, spelling, punctuation or sound alike errors 08/10/21 23:11 - Departure Departure Disposition: AMA Clinical Impression: Abdominal pain, Anxiety Condition: Stable Critical Care Time: No Referrals: AVA TAYLOR, DO [Primary Care Provider] -
[2021-08-10 23:13] LABS: Bacteria NONE SEEN /HPF (NEGATIVE)
[2021-08-10 23:14] LABS: Absolute Neutrophil Ct (ANC) 5.68 (1.4-6.9); BASOPHIL % 0.3 % (0.0-0.4); Basophil (Absolute #) 0.02 (0-0.4); Eosinophil % 0.1 % (0.00-5.0); Eosinophil (Absolute #) 0.01 (0-0.5); Hematocrit 43.9 % (35-47); Hemoglobin 14.9 gm/dl (12.0-16.0); Lymphocyte (Absolute #) 1.38 (1.0-4.6); Lymphocytes % 18.5 % (24.0-44.0); Mean Cell Volume 89.8 fl (78-100); Mean Corpuscular Hemoglobin 30.5 pg (26-32); Mean Corpuscular Hgb Concent. 33.9 g/dl (32-36); Mean Platelet Volume 9.7 fl (7.5-11.0); Monocyte (Absolute #) 0.37 (0.0-1.3); Neutrophil % 76.1 % (36.0-66.0); Platelet Count 270 K/mm3 (150-450); Red Blood Count 4.89 M/mm3 (4.1-5.4); Red Cell Distribution Width 12.9 % (11.5-14.0); White Blood Count 7.5 K/mm3 (4.0-10.5)
[2021-08-10 23:18] LABS: ALBUMIN 4.6 g/dL (3.5-5.0); ALKALINE PHOSPHATASE 118 U/L (38-126); ANION GAP 16.1 MEQ/L (5-15); BLOOD UREA NITROGEN 14 mg/dL (7-17); CHLORIDE 105 mmol/L (98-107); Calcium 9.6 mg/dL (8.4-10.2); Carbon Dioxide 24 mmol/L (22-30); Creatinine 1 0.61 mg/dL (0.52-1.04); EST GLOMERULAR FILTRATION RATE > 60.0 ML/MIN; Glucose 171 mg/dL (74-106); Potassium 3.2 mmol/L (3.5-5.1); SGOT/AST 36 U/L (14-36); SGPT/ALT 48 U/L (0-35); SODIUM 142 mmol/L (137-145)
== END 2021-08-10 22:55 | disposition left against medical advice (07) ==
LOC: ED 21:51
DX: R10.9 Unspecified abdominal pain (principal); F41.9 Anxiety disorder, unspecified
CPT/HCPCS: 36000; 36415; 80053; 81001; 84484; 85025; 96374; 99284

== ENCOUNTER 2021-12-06 21:12 | Emergency (ER) | payer OTHER ==
[2021-12-06] MEDS ORDERED: Inapsine 5 MG/2 ML IV ONE (21:25)
[2021-12-06] MEDS ORDERED: Inapsine 5 MG/2 ML ONE (21:28)
--- NOTE | 2021-12-06 21:59 | ERPHSYRPT ---
- History of Present Illness Historian: patient, EMS Exam Limitations: other (Poor historian) Patient Subjective Stated Complaint: pt states "I'm having a panic attack because I don't feel good." Triage Nursing Assessment: pt came into the er via ambulance; pt is axo x4; c/o anxiety; pt states 8/10 pain to abd and head; pt is thrashing around the bed; pt is agitated, restless, yelling; pt received 4 mg of zofran in route from EMS; active bowel sounds in all quads; c/o nausea; hypertensive Physician History: 56 yo wf arrived by ambulance w N/V/diarrhea and generalized abdominal pain since 19:00. Pt states that she is very anxious and is pacing around the room. Pain is rated 8/10 and described as pressure. She denies hematemesis/melena/he matochezia/dysuria/hematuria/chest pain/dyspnea. Pt was given 4mg IV Zofran in route. Timing/Duration: other (19:00) Activities at Onset: rest Quality: pressure Abdominal Pain Onset Location: generalized abdomen Pain Radiation: no radiation Severity of Pain-Max: severe Severity of Pain-Current: severe Modifying Factors: Improves With: nothing, vomiting Associated Symptoms: diarrhea, loss of appetite, nausea, vomiting, No back, No chest pain, No diaphoresis, No fever/chills, No fatigue, No headache, No heartburn, No neck pain, No rash, No shortness of breath, No syncope, No weakness Previous symptoms: same symptoms as today Allergies/Adverse Reactions: hydromorphone [From Dilaudid] Adverse Reaction (Verified 12/06/21 21:16) iv contrast Allergy (Uncoded 12/06/21 21:16) Home Medications: Omeprazole 20 MG [Prilosec 20 mg] 20 mg PO BID 02/02/18 [History] Losartan Potassium [Cozaar] 50 mg PO DAILY 05/13/19 [History] PANTOPRAZOLE 40 mg Tablet [Protonix 40MG Tablet] 40 mg PO BID 02/10/21 [History] Cyclobenzaprine HCl 5 mg PO BID PRN 06/08/21 [History] Hx Tetanus, Diphtheria Vaccination/Date Given: No Hx Influenza Vaccination/Date Given: Yes Hx Pneumococcal Vaccination/Date Given: No Travel Risk - International Travel Have you traveled outside of the country in past 3 weeks: No - Coronavirus Screening Are you exhibiting any of the following symptoms?: Yes Symptoms: Headaches/Body Aches/Fatigue Close contact with a COVID-19 positive Pt in past 14-21 Days: Yes - Vaccine Status Have you recieved a Covid-19 vaccination: Yes 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 - Vaccination Dates Date of 2cond Vaccination (if applicable): unknown Dates if Unknown: unknown - Review of Systems Constitutional: No Symptoms Eyes: No Symptoms Ears, Nose, & Throat: No Symptoms Respiratory: No Symptoms Cardiac: No Symptoms Abdominal/Gastrointestinal: No Symptoms, Abdominal Pain, Nausea, Vomiting, Diarrhea, No Constipation, No Hematemesis, No Hematochezia, No Melena, No Dysphagia, No Appetite Changes Genitourinary Symptoms: No Symptoms Musculoskeletal: No Symptoms Skin: No Symptoms Neurological: No Symptoms Psychological: No Symptoms Endocrine: No Symptoms Hematologic/Lymphatic: No Symptoms Immunological/Allergic: No Symptoms - Past Medical History Pertinent Past Medical History: Yes Neurological History: No Pertinent History ENT History: No Pertinent History Cardiac History: Hypertension, Myocardial Infarction ([place]) Respiratory History: No Pertinent History Endocrine Medical History: No Pertinent History Musculoskeletal History: Fibromyalgia, Osteoarthritis GI Medical History: Diverticulosis, GERD History: No Pertinent History Psycho-Social History: Anxiety, Depression Female Reproductive Disorders: No Pertinent History Other Medical History: PMHX: ANXIETY, GERD. HX [place] 2018 - NO BLOCKAGES - CLEARED BY MACHINE II TRIMMER - [place] DUE TO SEVERE STRESS. PATIENT REPORTS OA IN HANDS - Past Surgical History Past Surgical History: Yes Neuro Surgical History: No Pertinent History Cardiac: Cardiac Stent Respiratory: No Pertinent History Gastrointestinal: Cholecystectomy Genitourinary: Other Musculoskeletal: No Pertinent History Female Surgical History: Section Other Surgical History: stints placed in bilat kidneys - Social History Smoking Status: Never smoker Exposure to second hand smoke: No Alcohol Use: None Drug Use: none Patient Lives Alone: No Significant Family History: no pertinent family hx, diabetes, hypertension - Female History Hx Now: No - Nursing Vital Signs Nursing Vital Signs: Initial Vital Signs Temperature 97.8 F 12/06/21 21:17 Pulse Rate 93 H 12/06/21 21:17 Respiratory Rate 12/06/21 21:17 Blood Pressure 183/116 12/06/21 21:17 O2 Sat by Pulse Oximetry 99 12/06/21 21:17 Pain Scale Pain Intensity 3 Hypertensive - Physical Exam General Appearance: no apparent distress, anxiety Eye Exam: PERRL/EOMI, eyes nml inspection Ears, Nose, Throat Exam: normal ENT inspection, TMs normal, pharynx normal, moist mucous membranes Neck Exam: normal inspection, non-tender, supple, full range of motion, No meningismus, No mass, No Brudzinski, No Kernig's, No carotid bruit Respiratory Exam: normal breath sounds, lungs clear, airway intact Cardiovascular Exam: regular rate/rhythm, normal heart sounds, normal peripheral pulses, capillary refill <2 sec, No murmur Gastrointestinal/Abdomen Exam: soft, tenderness (Mild diffuse TTP), No distention, No mass, No guarding, No rebound Back Exam: normal inspection, normal range of motion, No CVA tenderness, No vertebral tenderness Extremity Exam: normal inspection, normal range of motion Neurologic Exam: alert, oriented x 3, cooperative, 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, normal mood/affect, nml cerebellar function, nml station & gait, sensation nml, No motor deficits, No sensory deficit Skin Exam: normal color, warm, dry, No rash Lymphatic Exam: No adenopathy SpO2 Interpretation: normal SpO2: 99 O2 Delivery: Room Air - Course Nursing assessment & vital signs reviewed: Yes - CT Exams Abdomen/Pelvis CT Interpretation: Tele-radiologist Report (No acute findings) Ordered Tests: Active Orders 24 hr Category Date Time Status ABDOMEN AND PELVIS W/0 CONTRAS [CT] Stat Exams 12/06/21 22:50 Taken AMYLASE Stat Lab 12/06/21 21:50 Completed CBC W DIFF Stat Lab 12/06/21 21:50 Completed CMP Stat Lab 12/06/21 21:50 Completed LIPASE Stat Lab 12/06/21 21:50 Completed TROPONIN Q3H Lab 12/06/21 21:50 Completed UA W/RFX UR CULTURE Stat Lab 12/06/21 21:33 Completed Urine Triage Profile Stat Lab 12/06/21 21:33 Completed Medication Summary Discontinued Medications Generic Name Dose Route Start Last Admin Trade Name Freq PRN Reason Stop Dose Admin Droperidol 1.25 mg 12/06/21 21:25 12/06/21 21:30 Droperidol 5 Mg/2 Ml Vial IV 12/06/21 21:26 1.25 mg STAT ONE Administration Droperidol Confirm 12/06/21 21:28 Droperidol 5 Mg/2 Ml Vial Administered 12/06/21 21:29 Dose 5 mg .ROUTE .STK-MED ONE Labetalol HCl 10 mg 12/06/21 23:45 12/06/21 23:47 Labetalol Hcl 20 Mg/4 Ml Disp.Syringe IV 12/06/21 23:46 10 mg STAT ONE Administration Labetalol HCl Confirm 12/06/21 23:47 Labetalol Hcl 20 Mg/4 Ml Disp.Syringe Administered 12/06/21 23:48 Dose 20 mg IV .STK-MED ONE Prochlorperazine Edisylate 10 mg 12/06/21 22:51 12/06/21 22:53 Prochlorperazine Edisylate 10 Mg/2 Ml Vial IV 12/06/21 22:52 10 mg STAT ONE Administration Prochlorperazine Edisylate Confirm 12/06/21 22:51 Prochlorperazine Edisylate 10 Mg/2 Ml Vial Administered 12/06/21 22:52 Dose 10 mg .ROUTE .STK-MED ONE Lab/Rad Data: Laboratory Result Diagrams 12/06/21 21:50 12/06/21 21:50 Laboratory Results 12/06/21 12/06/21 12/06/21 Range/Units 21:50 21:50 21:50 WBC 7.5 (4.0-10.5) K/mm3 RBC 4.42 (4.1-5.4) M/mm3 Hgb 13.5 (12.0-16.0) gm/dl Hct 39.9 (35-47) % MCV 90.3 (78-100) fl MCH 30.5 (26-32) pg MCHC 33.8 (32-36) g/dl RDW 13.0 (11.5-14.0) % Plt Count 267 (150-450) K/mm3 MPV 9.2 (7.5-11.0) fl Gran % 64.6 (36.0-66.0) % Eos # (Auto) 0.05 (0-0.5) Absolute Lymphs (auto) 2.03 (1.0-4.6) Absolute Monos (auto) 0.55 (0.0-1.3) Lymphocytes % 27.0 (24.0-44.0) % Monocytes % 7.3 (0.0-12.0) % Eosinophils % 0.7 (0.00-5.0) % Basophils % 0.4 (0.0-0.4) % Absolute Granulocytes 4.87 (1.4-6.9) Basophils # 0.03 (0-0.4) Sodium 139 (137-145) mmol/L Potassium 3.7 (3.5-5.1) mmol/L Chloride 107 (98-107) mmol/L Carbon Dioxide 21 L (22-30) mmol/L Anion Gap 14.4 (5-15) MEQ/L BUN 20 H (7-17) mg/dL Creatinine 0.55 (0.52-1.04) mg/dL Estimated GFR > 60.0 ML/MIN Glucose 179 H (74-106) mg/dL Calcium 9.1 (8.4-10.2) mg/dL Total Bilirubin 0.40 (0.2-1.3) mg/dL AST 34 (14-36) U/L ALT 45 H (0-35) U/L Alkaline Phosphatase 122 (38-126) U/L Troponin I < 0.012 (0.000-0.034) ng/mL Serum Total Protein 7.4 (6.3-8.2) g/dL Albumin 4.2 (3.5-5.0) g/dL Amylase 72 (30-110) U/L Lipase 95 (23-300) U/L Urine Color (YELLOW) Urine Appearance (CLEAR) Urine pH (5-6) Ur Specific [place] (1.005-1.025) Urine Protein (Negative) Urine Ketones (NEGATIVE) Urine Blood (0-5) Dilip/ul Urine Nitrite (NEGATIVE) Urine Bilirubin (NEGATIVE) Urine Urobilinogen (0-1) mg/dL Ur Leukocyte Esterase (NEGATIVE) Urine WBC (Auto) (0-5) /HPF Urine RBC (Auto) (0-2) /HPF U Epithel Cells (Auto) (FEW) /HPF Urine Bacteria (Auto) (NEGATIVE) /HPF Calcium Oxalate Crystal (NEGATIVE) /HPF Urine Mucus (Auto) (NEGATIVE) /HPF Urine Culture Reflexed (NO) Urine Glucose (NEGATIVE) mg/dL Urine Opiates Level (NEGATIVE) Ur Methadone (NEGATIVE) Urine Barbiturates (NEGATIVE) Ur Phencyclidine (PCP) (NEGATIVE) Urine Amphetamine (NEGATIVE) U Benzodiazepine Level (NEGATIVE) Urine Cocaine (NEGATIVE) Urine Marijuana (THC) (NEGATIVE) 12/06/21 12/06/21 Range/Units 21:33 21:33 WBC (4.0-10.5) K/mm3 RBC (4.1-5.4) M/mm3 Hgb (12.0-16.0) gm/dl Hct (35-47) % MCV (78-100) fl MCH (26-32) pg MCHC (32-36) g/dl RDW (11.5-14.0) % Plt Count (150-450) K/mm3 MPV (7.5-11.0) fl Gran % (36.0-66.0) % Eos # (Auto) (0-0.5) Absolute Lymphs (auto) (1.0-4.6) Absolute Monos (auto) (0.0-1.3) Lymphocytes % (24.0-44.0) % Monocytes % (0.0-12.0) % Eosinophils % (0.00-5.0) % Basophils % (0.0-0.4) % Absolute Granulocytes (1.4-6.9) Basophils # (0-0.4) Sodium (137-145) mmol/L Potassium (3.5-5.1) mmol/L Chloride (98-107) mmol/L Carbon Dioxide (22-30) mmol/L Anion Gap (5-15) MEQ/L BUN (7-17) mg/dL Creatinine (0.52-1.04) mg/dL Estimated GFR ML/MIN Glucose (74-106) mg/dL Calcium (8.4-10.2) mg/dL Total Bilirubin (0.2-1.3) mg/dL AST (14-36) U/L ALT (0-35) U/L Alkaline Phosphatase (38-126) U/L Troponin I (0.000-0.034) ng/mL Serum Total Protein (6.3-8.2) g/dL Albumin (3.5-5.0) g/dL Amylase (30-110) U/L Lipase (23-300) U/L Urine Color YELLOW (YELLOW) Urine Appearance SLIGHTLY CLOUDY (CLEAR) Urine pH 5.0 (5-6) Ur Specific [place] 1.024 (1.005-1.025) Urine Protein NEGATIVE (Negative) Urine Ketones TRACE (NEGATIVE) Urine Blood SMALL (0-5) Dilip/ul Urine Nitrite NEGATIVE (NEGATIVE) Urine Bilirubin NEGATIVE (NEGATIVE) Urine Urobilinogen NEGATIVE (0-1) mg/dL Ur Leukocyte Esterase NEGATIVE (NEGATIVE) Urine WBC (Auto) 0-2 (0-5) /HPF Urine RBC (Auto) 0-2 (0-2) /HPF U Epithel Cells (Auto) NONE (FEW) /HPF Urine Bacteria (Auto) NONE (NEGATIVE) /HPF Calcium Oxalate Crystal 11-25 (NEGATIVE) /HPF Urine Mucus (Auto) SLIGHT (NEGATIVE) /HPF Urine Culture Reflexed NO (NO) Urine Glucose >=500 (NEGATIVE) mg/dL Urine Opiates Level NEGATIVE (NEGATIVE) Ur Methadone NEGATIVE (NEGATIVE) Urine Barbiturates NEGATIVE (NEGATIVE) Ur Phencyclidine (PCP) NEGATIVE (NEGATIVE) Urine Amphetamine NEGATIVE (NEGATIVE) U Benzodiazepine Level NEGATIVE (NEGATIVE) Urine Cocaine NEGATIVE (NEGATIVE) Urine Marijuana (THC) NEGATIVE (NEGATIVE) - Progress Progress: improved Progress Note: 12/06/21 23:38 Droperidol 1.25mg IV wo improvement in nausea 10mg IV Compazine 12/07/21 00:04 BP decreased w 10mg IV Compazine Counseled pt/family regarding: lab results, diagnosis, need for follow-up, rad results - Departure Departure Disposition: Home Clinical Impression: Abdominal pain, Anxiety, Hypertension Condition: Stable Critical Care Time: No Referrals: AVA TAYLOR DO [Primary Care Provider] - Follow up/PCP as directed Instructions: Anxiety, Adult (DC), Acute Abdomen (Belly Pain), Adult (DC) Additional Instructions: Follow up with your family MD in 1-2 days Return to ER for increasing pain or temperature greater than 100.5
[2021-12-06 22:03] LABS: Absolute Neutrophil Ct (ANC) 4.87 (1.4-6.9); Basophil (Absolute #) 0.03 (0-0.4); Eosinophil % 0.7 % (0.00-5.0); Eosinophil (Absolute #) 0.05 (0-0.5); Hematocrit 39.9 % (35-47); Hemoglobin 13.5 gm/dl (12.0-16.0); Lymphocyte (Absolute #) 2.03 (1.0-4.6); Mean Cell Volume 90.3 fl (78-100); Mean Corpuscular Hemoglobin 30.5 pg (26-32); Mean Corpuscular Hgb Concent. 33.8 g/dl (32-36); Mean Platelet Volume 9.2 fl (7.5-11.0); Monocyte (Absolute #) 0.55 (0.0-1.3); Monocytes % 7.3 % (0.0-12.0); Neutrophil % 64.6 % (36.0-66.0); Platelet Count 267 K/mm3 (150-450); Red Blood Count 4.42 M/mm3 (4.1-5.4); White Blood Count 7.5 K/mm3 (4.0-10.5)
[2021-12-06 22:18] LABS: Appearance SLIGHTLY CLOUDY (CLEAR); Bilirubin NEGATIVE (NEGATIVE); Blood SMALL Ery/ul (0-5); Glucose >=500 mg/dL (NEGATIVE); Ketones TRACE (NEGATIVE); Leukocyte Esterase NEGATIVE (NEGATIVE); Mucus SLIGHT /HPF (NEGATIVE); Nitrite NEGATIVE (NEGATIVE); Protein,Urine Dip NEGATIVE (Negative); RBC 0-2 /HPF (0-2); Specific Gravity 1.024 (1.005-1.025); Urobilinogen NEGATIVE mg/dL (0-1); WBC 0-2 /HPF (0-5)
[2021-12-06 22:25] LABS: ALBUMIN 4.2 g/dL (3.5-5.0); ALKALINE PHOSPHATASE 122 U/L (38-126); AMYLASE 72 U/L (30-110); ANION GAP 14.4 MEQ/L (5-15); BLOOD UREA NITROGEN 20 mg/dL (7-17); CHLORIDE 107 mmol/L (98-107); Calcium 9.1 mg/dL (8.4-10.2); Carbon Dioxide 21 mmol/L (22-30); Creatinine 1 0.55 mg/dL (0.52-1.04); EST GLOMERULAR FILTRATION RATE > 60.0 ML/MIN; Glucose 179 mg/dL (74-106); LIPASE 95 U/L (23-300); Potassium 3.7 mmol/L (3.5-5.1); SGOT/AST 34 U/L (14-36); SGPT/ALT 45 U/L (0-35); SODIUM 139 mmol/L (137-145); Total Protein 7.4 g/dL (6.3-8.2)
[2021-12-06 22:36] LABS: Amphetamine,Urine NEGATIVE (NEGATIVE); Barbiturate,Urine NEGATIVE (NEGATIVE); Benzodiazepine,Urine NEGATIVE (NEGATIVE); Cocaine,Urine NEGATIVE (NEGATIVE); Methadone,Urine NEGATIVE (NEGATIVE); Opiate,Urine NEGATIVE (NEGATIVE); PCP,Urine NEGATIVE (NEGATIVE); THC,Urine NEGATIVE (NEGATIVE)
[2021-12-06] MEDS ORDERED: Compazine 10 MG/2 ML IV ONE (22:51)
[2021-12-06] MEDS ORDERED: Compazine 10 MG/2 ML ONE (22:51)
[2021-12-06] MEDS ORDERED: TRANDATE 20 MG/4 ML SYRINGE IV ONE ×2 (23:45→23:47)
[2021-12-07 00:09] VITALS: BP 165/74; PULSE 75
[2021-12-07 03:30] VITALS: O2SAT 99
--- NOTE | 2021-12-07 08:45 | XRAY ---
Indication: Abdomen pain. Multiple contiguous axial images obtained through the abdomen and pelvis without contrast. Comparison: July 05, 2021. Lung bases again demonstrates right lower lobe calcified and left lower lobe noncalcified granulomas. No infiltrate or effusion. Heart is not enlarged. Noncontrasted stomach and bowel loops remain nonobstructed. Normal appendix with new tiny appendicolith near the base. Stable scattered colonic diverticulosis, fatty liver, and cholecystectomy. No free fluid/air. Remaining liver, pancreas, spleen, adrenal glands, kidneys, ureters, bladder, uterus, and aorta are unremarkable for noncontrast exam. Osseous structures intact again with mild degenerative changes throughout the spine. No ventral or inguinal hernias. Impression: 1. New appendicolith without appendicitis. 2. Again incidental colonic diverticulosis, fatty liver, chronic bony findings, and old granulomatous disease. 3. Remaining CT abdomen/pelvis without contrast exam is negative. Comment: Preliminary interpretation made by C. No critical discrepancy.
== END 2021-12-07 00:16 | disposition home or self-care (01) ==
LOC: ED 21:12
DX: R10.84 Generalized abdominal pain (principal); F41.9 Anxiety disorder, unspecified; I10 Essential (primary) hypertension; R11.2 Nausea with vomiting, unspecified; R19.7 Diarrhea, unspecified; K21.9 Gastro-esophageal reflux disease without esophagitis; I25.2 Old myocardial infarction; Z79.899 Other long term (current) drug therapy
CPT/HCPCS: 36415; 74176; 80053; 80307; 81001; 82150; 83690; 84484; 85025; 96374; 99284

== ENCOUNTER 2022-03-14 20:04 | Emergency (ER) | payer OTHER ==
[2022-03-14] MEDS ORDERED: Sodium Chloride 0.9% 1000 ML 1,000 ML IV STA ×2 (20:18→22:46)
[2022-03-14] MEDS ORDERED: Compazine 10 MG/2 ML IV ONE (20:18)
--- NOTE | 2022-03-14 20:18 | ERPHSYRPT ---
- History of Present Illness Time Seen by Provider: 03/14/22 20:18 Source: patient, EMS Exam Limitations: clinical condition Patient Subjective Stated Complaint: "I didn't feel well this morning but I mowed my yard anyway. I think I am dehydrated Triage Nursing Assessment: Pt brought in by Medic 1, Medic was called d/t possible anxiety attack. pt was hypertensive and tachycardiac at 120s for Medic 1, pt has hx of anxiety and HTN pt stated she has thrown up 3 times today and had "some diarrhea", pt c/o R sided upper abd pain but has known diagnosis of "fatty Liver" Physician History: This is an obese 56-year-old white female patient of Dr. Philip who states that she is not felt well all day. She feels that maybe she is having an anxiety attack because she does not feel well. She does have a history of anxie ty issues, gastroesophageal reflux disease, hypertension fibromyalgia, coronary disease and depression. She had similar symptoms in November 2021 but she says that today her symptoms were much worse. She awoke this morning and was feeling this way but went ahead and mowed her yard anyway. She stated that her symptoms of nausea and vomiting and headache and numbness in her hands and feet worsened throughout the day. Patient vomited 3 times. She denies chest pain. She is not short of breath. She has not been around anybody that she is aware of that has been diagnosed with flu. Patient is not suicidal and she is not homicidal. Timing/Duration: today Severity: moderate Associated Symptoms: nausea, vomiting, headaches, other (Headache) Allergies/Adverse Reactions: hydromorphone [From Dilaudid] Adverse Reaction (Verified 03/14/22 20:06) iv contrast Allergy (Uncoded 03/14/22 20:24) Home Medications: Losartan Potassium [Cozaar] 50 mg PO DAILY 05/13/19 [History] Cyclobenzaprine HCl 5 mg PO BID PRN 06/08/21 [History] Escitalopram Oxalate 10 mg [Lexapro 10 MG] 10 mg PO DAILY 03/14/22 [History] Famotidine 20 mg [Pepcid 20 MG] 20 mg PO DAILY 03/14/22 [History] Lorazepam 0.5 mg [Ativan 0.5 MG] 0.5 mg PO DAILY 03/14/22 [History] Quetiapine Fumarate 25 mg [Seroquel 25 MG] 25 mg PO DAILY 03/14/22 [History] Hx Tetanus, Diphtheria Vaccination/Date Given: No Hx Influenza Vaccination/Date Given: Yes Hx Pneumococcal Vaccination/Date Given: No Immunizations Up to Date: Yes Travel Risk - International Travel Have you traveled outside of the country in past 3 weeks: No - Coronavirus Screening Are you exhibiting any of the following symptoms?: No Close contact with a COVID-19 positive Pt in past 14-21 Days: No - Vaccine Status Have you recieved a Covid-19 vaccination: Yes 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[employer]: [employer] - Vaccination Dates Date of 2cond Vaccination (if applicable): 2020 - Review of Systems Constitutional: Weakness Eyes: No Symptoms Ears, Nose, & Throat: No Symptoms Respiratory: No Symptoms Cardiac: No Symptoms Abdominal/Gastrointestinal: Nausea, Vomiting, No Abdominal Pain, No Diarrhea Genitourinary Symptoms: No Symptoms Musculoskeletal: No Symptoms Skin: No Symptoms Neurological: Headache, Parasthesia (Bilateral feet and hands) Psychological: No Symptoms, No Suicidal Ideations, No Homicidal Ideations Endocrine: No Symptoms Hematologic/Lymphatic: No Symptoms Immunological/Allergic: No Symptoms All Other Systems: Reviewed and Negative - Past Medical History Pertinent Past Medical History: Yes Neurological History: No Pertinent History ENT History: No Pertinent History Cardiac History: Hypertension, Myocardial Infarction (DC) Respiratory History: No Pertinent History Endocrine Medical History: No Pertinent History Musculoskeletal History: Fibromyalgia, Osteoarthritis GI Medical History: Diverticulosis, GERD History: No Pertinent History Psycho-Social History: Anxiety, Depression Female Reproductive Disorders: No Pertinent History Other Medical History: PMHX: GERD, fatty liver. 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 PATIENT REPORTS OA IN HANDS - Past Surgical History Past Surgical History: Yes Neuro Surgical History: No Pertinent History Cardiac: Cardiac Stent Respiratory: No Pertinent History Gastrointestinal: Cholecystectomy Genitourinary: Other Musculoskeletal: No Pertinent History Female Surgical History: Section Other Surgical History: stints placed in bilat kidneys - Social History Smoking Status: Never smoker Exposure to second hand smoke: No Alcohol Use: None Drug Use: none Patient Lives Alone: No Significant Family History: no pertinent family hx, diabetes, hypertension - Nursing Vital Signs Nursing Vital Signs: Initial Vital Signs Temperature 97.7 F 03/14/22 20:05 Pulse Rate 108 H 03/14/22 20:05 Respiratory Rate 24 03/14/22 20:05 Blood Pressure 176/115 03/14/22 20:05 O2 Sat by Pulse Oximetry 99 03/14/22 20:05 Pain Scale Pain Intensity 3 - Physical Exam General Appearance: no apparent distress, alert, anxiety, obese Eye Exam: PERRL/EOMI, eyes nml inspection Ears, Nose, Throat Exam: normal ENT inspection, moist mucous membranes Neck Exam: normal inspection, non-tender, supple, full range of motion Respiratory Exam: normal breath sounds, lungs clear, airway intact, No chest tenderness, No respiratory distress Cardiovascular Exam: tachycardia (Mild) Gastrointestinal/Abdomen Exam: soft, normal bowel sounds, No tenderness Pelvic Exam: not done Rectal Exam: not done Back Exam: normal inspection, normal range of motion, No CVA tenderness, No vertebral tenderness Extremity Exam: normal inspection, normal range of motion, pelvis stable Neurologic Exam: alert, oriented x 3, cooperative, car loader II-XII nml as tested, normal mood/affect, nml cerebellar function, nml station & gait, sensation nml Skin Exam: normal color, warm, dry Lymphatic Exam: No adenopathy SpO2 Interpretation: normal SpO2: 99 O2 Delivery: Room Air - Course Nursing assessment & vital signs reviewed: Yes EKG Interpreted by Me: RATE (102), Sinus Tach, NORMAL AXIS, NORMAL INTERVALS, N ORMAL QRS, NORMAL ST-T, Other (No acute ischemic changes on today's EKG. There is new sinus tachycardia that is mild when compared to EKG dated 07/05/2021.) Ordered Tests: Active Orders 24 hr Category Date Time Status EKG-ER Only STAT Care 03/14/22 20:18 Active IV Insertion STAT Care 03/14/22 20:18 Active HEAD WITHOUT CONTRAST [CT] Stat Exams 03/14/22 20:19 Taken AMYLASE Stat Lab 03/14/22 20:20 Completed CBC W DIFF Stat Lab 03/14/22 20:20 Completed CMP Stat Lab 03/14/22 20:20 Completed LIPASE Stat Lab 03/14/22 20:20 Completed Lactic Acid Stat Lab 03/14/22 21:00 Completed TROPONIN Q3H Lab 03/14/22 20:20 Completed TROPONIN Q3H Lab 03/14/22 23:30 Ordered TROPONIN Q3H Lab 03/15/22 02:30 Ordered TROPONIN Q3H Lab 03/15/22 05:30 Ordered TROPONIN Q3H Lab 03/15/22 08:30 Ordered UA W/RFX CULTURE Stat Lab 03/14/22 21:51 Completed Urine Triage Profile Stat Lab 03/14/22 21:51 Completed Medication Summary Generic Name Dose Route Start Last Admin Trade Name Freq PRN Reason Stop Dose Admin Sodium Chloride 500 mls @ 500 mls/hr 03/14/22 21:56 Sodium Chloride 0.9% 500 Ml IV 03/14/22 22:55 .Q1H ONE Discontinued Medications Generic Name Dose Route Start Last Admin Trade Name Freq PRN Reason Stop Dose Admin Diphenhydramine HCl 25 mg 03/14/22 20:50 Diphenhydramine Hcl 50 Mg/Ml Vial IV 03/14/22 20:51 STAT ONE Sodium Chloride 1,000 mls @ 999 mls/hr 03/14/22 20:18 03/14/22 20:29 Sodium Chloride 0.9% 1000 Ml IV 03/14/22 21:18 999 mls/hr .Q1H1M STA Administration Sodium Chloride Confirm 03/14/22 20:27 Sodium Chloride 0.9% 1000 Ml Administered 03/14/22 20:28 Dose 1,000 mls @ ud .ROUTE .STK-MED ONE Lorazepam 0.5 mg 03/14/22 20:51 Lorazepam 2 Mg/1 Ml 2 Mg Vial IV 03/14/22 20:52 STAT ONE Prochlorperazine Edisylate 10 mg 03/14/22 20:18 03/14/22 20:31 Prochlorperazine Edisylate 10 Mg/2 Ml Vial IV 03/14/22 20:19 10 mg STAT ONE Administration Prochlorperazine Edisylate Confirm 03/14/22 20:27 Prochlorperazine Edisylate 10 Mg/2 Ml Vial Administered 03/14/22 20:28 Dose 10 mg .ROUTE .STK-MED ONE Lab/Rad Data: Laboratory Result Diagrams 03/14/22 20:20 03/14/22 20:20 Laboratory Results 03/14/22 03/14/22 03/14/22 Range/Units 21:51 21:51 21:00 WBC (4.0-10.5) K/mm3 RBC (4.1-5.4) M/mm3 Hgb (12.0-16.0) gm/dl Hct (35-47) % MCV (78-100) fl MCH (26-32) pg MCHC (32-36) g/dl RDW (11.5-14.0) % Plt Count (150-450) K/mm3 MPV (7.5-11.0) fl Gran % (36.0-66.0) % Eos # (Auto) (0-0.5) Absolute Lymphs (auto) (1.0-4.6) Absolute Monos (auto) (0.0-1.3) Lymphocytes % (24.0-44.0) % Monocytes % (0.0-12.0) % Eosinophils % (0.00-5.0) % Basophils % (0.0-0.4) % Absolute Granulocytes (1.4-6.9) Basophils # (0-0.4) Sodium (137-145) mmol/L Potassium (3.5-5.1) mmol/L Chloride (98-107) mmol/L Carbon Dioxide (22-30) mmol/L Anion Gap (5-15) MEQ/L BUN (7-17) mg/dL Creatinine (0.52-1.04) mg/dL Estimated GFR ML/MIN Glucose (74-106) mg/dL Lactic Acid 2.4 H (0.4-2.0) Calcium (8.4-10.2) mg/dL Total Bilirubin (0.2-1.3) mg/dL AST (14-36) U/L ALT (0-35) U/L Alkaline Phosphatase (38-126) U/L Troponin I (0.000-0.034) ng/mL Serum Total Protein (6.3-8.2) g/dL Albumin (3.5-5.0) g/dL Amylase (30-110) U/L Lipase (23-300) U/L Urinalys Dipstick Clnc MAIN LAB Urine Color YELLOW (YELLOW) Urine Appearance CLEAR (CLEAR) Urine pH 5.5 (5-6) Ur Specific Kimberly 1.025 (1.005-1.025) POC Urine Protein Conf NEGATIVE (Negative) Urine Ketones MODERATE-40 (NEGATIVE) Urine Nitrite NEGATIVE (NEGATIVE) Urine Bilirubin NEGATIVE (NEGATIVE) Urine Urobilinogen 0.2 (0-1) mg/dL Urine Leukocytes NEGATIVE (NEGATIVE) Urine WBC (Auto) NONE (0-5) /HPF Urine RBC (Auto) 0-2 (0-2) /HPF U Hyaline Cast (Auto) 0-2 (0-2) /LPF U Epithel Cells (Auto) NONE (FEW) /HPF Urine Bacteria (Auto) NONE (NEGATIVE) /HPF Urine RBC TRACE-INTACT (0-5) Dilip/ul Urine Mucus (Auto) SLIGHT (NEGATIVE) /HPF Ur Culture Indicated? NO Urine Glucose NEGATIVE (NEGATIVE) mg/dL Urine Opiates Level NEGATIVE (NEGATIVE) Ur Methadone NEGATIVE (NEGATIVE) Urine Barbiturates NEGATIVE (NEGATIVE) Ur Phencyclidine (PCP) NEGATIVE (NEGATIVE) Urine Amphetamine NEGATIVE (NEGATIVE) U Benzodiazepine Level NEGATIVE (NEGATIVE) Urine Cocaine NEGATIVE (NEGATIVE) Urine Marijuana (THC) NEGATIVE (NEGATIVE) 03/14/22 03/14/22 03/14/22 Range/Units 20:20 20:20 20:20 WBC 5.5 (4.0-10.5) K/mm3 RBC 4.92 (4.1-5.4) M/mm3 Hgb 15.0 (12.0-16.0) gm/dl Hct 44.0 (35-47) % MCV 89.4 (78-100) fl MCH 30.5 (26-32) pg MCHC 34.1 (32-36) g/dl RDW 12.5 (11.5-14.0) % Plt Count 255 (150-450) K/mm3 MPV 9.6 (7.5-11.0) fl Gran % 78.9 H (36.0-66.0) % Eos # (Auto) 0.03 (0-0.5) Absolute Lymphs (auto) 0.78 L (1.0-4.6) Absolute Monos (auto) 0.35 (0.0-1.3) Lymphocytes % 14.1 L (24.0-44.0) % Monocytes % 6.3 (0.0-12.0) % Eosinophils % 0.5 (0.00-5.0) % Basophils % 0.2 (0.0-0.4) % Absolute Granulocytes 4.37 (1.4-6.9) Basophils # 0.01 (0-0.4) Sodium 139 (137-145) mmol/L Potassium 3.8 (3.5-5.1) mmol/L Chloride 103 (98-107) mmol/L Carbon Dioxide 23 (22-30) mmol/L Anion Gap 15.7 H (5-15) MEQ/L BUN 15 (7-17) mg/dL Creatinine 0.61 (0.52-1.04) mg/dL Estimated GFR > 60.0 ML/MIN Glucose 162 H (74-106) mg/dL Lactic Acid (0.4-2.0) Calcium 9.4 (8.4-10.2) mg/dL Total Bilirubin 0.70 (0.2-1.3) mg/dL AST 52 H (14-36) U/L ALT 94 H (0-35) U/L Alkaline Phosphatase 98 (38-126) U/L Troponin I < 0.012 (0.000-0.034) ng/mL Serum Total Protein 8.1 (6.3-8.2) g/dL Albumin 4.5 (3.5-5.0) g/dL Amylase 90 (30-110) U/L Lipase 62 (23-300) U/L Urinalys Dipstick Clnc Urine Color (YELLOW) Urine Appearance (CLEAR) Urine pH (5-6) Ur Specific Kimberly (1.005-1.025) POC Urine Protein Conf (Negative) Urine Ketones (NEGATIVE) Urine Nitrite (NEGATIVE) Urine Bilirubin (NEGATIVE) Urine Urobilinogen (0-1) mg/dL Urine Leukocytes (NEGATIVE) Urine WBC (Auto) (0-5) /HPF Urine RBC (Auto) (0-2) /HPF U Hyaline Cast (Auto) (0-2) /LPF U Epithel Cells (Auto) (FEW) /HPF Urine Bacteria (Auto) (NEGATIVE) /HPF Urine RBC (0-5) Dilip/ul Urine Mucus (Auto) (NEGATIVE) /HPF Ur Culture Indicated? Urine Glucose (NEGATIVE) mg/dL Urine Opiates Level (NEGATIVE) Ur Methadone (NEGATIVE) Urine Barbiturates (NEGATIVE) Ur Phencyclidine (PCP) (NEGATIVE) Urine Amphetamine (NEGATIVE) U Benzodiazepine Level (NEGATIVE) Urine Cocaine (NEGATIVE) Urine Marijuana (THC) (NEGATIVE) - Progress Progress: improved Progress Note: 03/14/22 20:57 This patient received fluids intravenously and Compazine intravenously. She has had the Compazine in the past which helped her lower her blood pressure and improve her anxiety. However, she states that the Compazine we gave her now is making her feel funny. She is now thrashing around in the bed and not being cooperative. This was a similar presentation that she had in November 2021. The plan is to go ahead and give her some Benadryl to help counteract the effect of the Compazine if it is in fact causing her symptoms. We will also give her half a milligram of intravenous Ativan at this time. We will continue with the work-up. However, at this point in time she will not be able to perform the CAT scan of the head because she will not lay still. 03/14/22 22:28 CAT scan of the head without contrast shows no acute intracranial abnormality. Counseled pt/family regarding: lab results, diagnosis, need for follow-up, rad results - Departure Departure Disposition: Home Clinical Impression: Dehydration, Vomiting Condition: Stable Critical Care Time: No Referrals: AVA PHILIP DO [Primary Care Provider] - Follow up/PCP as directed Additional Instructions: Drink plenty of clear liquids. Follow-up with your primary care physician for further management. Take your medications as prescribed. Prescriptions: Ondansetron ODT 4 MG [Zofran Odt 4 mg] 4 mg PO Q6H PRN PRN #10 tablet PRN Reason: Vomiting
[2022-03-14] MEDS ORDERED: Compazine 10 MG/2 ML ONE (20:27)
[2022-03-14] MEDS ORDERED: Sodium Chloride 0.9% 1000 ML 1,000 ML ONE ×2 (20:27→22:45)
[2022-03-14 20:38] LABS: Absolute Neutrophil Ct (ANC) 4.37 (1.4-6.9); Basophil (Absolute #) 0.01 (0-0.4); Eosinophil % 0.5 % (0.00-5.0); Eosinophil (Absolute #) 0.03 (0-0.5); Lymphocyte (Absolute #) 0.78 (1.0-4.6); Lymphocytes % 14.1 % (24.0-44.0); Mean Cell Volume 89.4 fl (78-100); Mean Corpuscular Hemoglobin 30.5 pg (26-32); Mean Corpuscular Hgb Concent. 34.1 g/dl (32-36); Mean Platelet Volume 9.6 fl (7.5-11.0); Monocyte (Absolute #) 0.35 (0.0-1.3); Monocytes % 6.3 % (0.0-12.0); Neutrophil % 78.9 % (36.0-66.0); Platelet Count 255 K/mm3 (150-450); Red Blood Count 4.92 M/mm3 (4.1-5.4); Red Cell Distribution Width 12.5 % (11.5-14.0); White Blood Count 5.5 K/mm3 (4.0-10.5)
[2022-03-14] MEDS ORDERED: BENADRYL 50 MG/ML IV ONE (20:50)
[2022-03-14 20:51] LABS: ALBUMIN 4.5 g/dL (3.5-5.0); ALKALINE PHOSPHATASE 98 U/L (38-126); AMYLASE 90 U/L (30-110); ANION GAP 15.7 MEQ/L (5-15); BLOOD UREA NITROGEN 15 mg/dL (7-17); CHLORIDE 103 mmol/L (98-107); Calcium 9.4 mg/dL (8.4-10.2); Carbon Dioxide 23 mmol/L (22-30); Creatinine 1 0.61 mg/dL (0.52-1.04); EST GLOMERULAR FILTRATION RATE > 60.0 ML/MIN; Glucose 162 mg/dL (74-106); LIPASE 62 U/L (23-300); Potassium 3.8 mmol/L (3.5-5.1); SGOT/AST 52 U/L (14-36); SGPT/ALT 94 U/L (0-35); SODIUM 139 mmol/L (137-145); Total Protein 8.1 g/dL (6.3-8.2)
[2022-03-14] MEDS ORDERED: Ativan 2 MG/1 ML VIAL IV ONE (20:51)
[2022-03-14] MEDS ORDERED: Sodium Chloride 0.9% 500 ML 500 ML IV ONE (21:56)
[2022-03-14 22:07] LABS: Appearance CLEAR (CLEAR); Bilirubin NEGATIVE (NEGATIVE); Dipstick done @ ? MAIN LAB; Glucose NEGATIVE (NEGATIVE); Hyaline Casts 0-2 /LPF (0-2); Ketones MODERATE-40 (NEGATIVE); Mucus SLIGHT /HPF (NEGATIVE); Nitrite NEGATIVE (NEGATIVE); Ph 5.5 (5-6); Protein,Urine Dip NEGATIVE (Negative); RBC 0-2 /HPF (0-2); RBC TRACE-INTACT Ery/ul (0-5); Specific Gravity 1.025 (1.005-1.025); Urobilinogen 0.2 mg/dL (0-1)
[2022-03-14 22:08] LABS: Urine Cultured Indicated? NO
[2022-03-14 22:18] LABS: Amphetamine,Urine NEGATIVE (NEGATIVE); Barbiturate,Urine NEGATIVE (NEGATIVE); Cocaine,Urine NEGATIVE (NEGATIVE); Methadone,Urine NEGATIVE (NEGATIVE); Opiate,Urine NEGATIVE (NEGATIVE); PCP,Urine NEGATIVE (NEGATIVE); THC,Urine NEGATIVE (NEGATIVE)
[2022-03-14 22:21] LABS: Benzodiazepine,Urine NEGATIVE (NEGATIVE)
[2022-03-14] MEDS ORDERED: BENADRYL 50 MG/ML ONE (22:57)
[2022-03-14] MEDS ORDERED: Ativan 2 MG/1 ML VIAL ONE (22:58)
[2022-03-15 00:24] VITALS: BP 105/75; PULSE 74; O2SAT 98
--- NOTE | 2022-03-15 12:43 | XRAY ---
Exam: CT of the head without IV contrast from 03/14/2022. CTDI: 53.92 mGy Comparison: CT of the head without IV contrast from 06/08/2021. Indication: 56-year-old female with nonspecified headache and left hand numbness. Technique: Non-IV contrast axial images were obtained through the brain. Reconstructed coronal and sagittal images were created and reviewed. Findings: The ventricles appear of normal size. No focal mass effect or midline shift is seen. No acute intracranial bleed or abnormal extra-axial fluid collection is seen. The wallace matter-white matter interfaces appear preserved. No low attenuation infarct is seen within a major cerebral or cerebellar artery distribution. The cortical sulci and basilar cisterns appear unremarkable. The calvarium of the skull appears intact. The orbits appear grossly unremarkable. The paranasal sinuses reveal minimal ethmoid sinus mucosal thickening. No air-fluid levels are seen. There is a small amount of apparent cerumen within the medial aspect of both external auditory canals. The middle ear cavities appear unremarkable. The mastoid air cells are relatively diminutive. No definite effusion is seen. There is slight partial clouding of the right mastoid air cells which may be due to some mucosal thickening or remote mastoid sinus disease. Impression: 1. No acute intracranial bleed or other acute intracranial abnormality is seen. 2. Incidental minimal mucosal thickening within the ethmoid sinuses and the right mastoid air cells. No air-fluid levels are seen.
== END 2022-03-15 00:16 | disposition home or self-care (01) ==
LOC: ED 20:04
DX: E86.0 Dehydration (principal); R11.2 Nausea with vomiting, unspecified; R51.9 Headache, unspecified; R20.2 Paresthesia of skin; I10 Essential (primary) hypertension; F41.9 Anxiety disorder, unspecified; Z79.899 Other long term (current) drug therapy
CPT/HCPCS: 36000; 36415; 70450; 80053; 80307; 81015; 82150; 83605; 83690; 84484; 85025; 93005; 96360; 96361; 96374; 96375; 99285; J1200; J2060

== ENCOUNTER 2023-10-26 14:09 | Emergency (ER) | payer OTHER ==
[2023-10-26 14:28] VITALS: TEMP 98
--- NOTE | 2023-10-26 14:48 | ERPHSYRPT ---
- History of Present Illness Time Seen by Provider: 10/26/23 14:48 Source: patient Exam Limitations: no limitations Patient Subjective Stated Complaint: C/O HTN down in therapy today just prior to arrival in ER. Patient had just arrived to therapy. Denies chest pain. Denies headache. C/O generalized body soreness and aches stating, "I think I have fibromyalgia." Triage Nursing Assessment: Patient ambulated back to ER without difficulties. SHe is alert and oriented. NO SOB. No cough. MONTES WNL. No edema. Blood sugar checked per patient request and is 115 on ER glucometer. Skin tone normal. Physician History: This is an overweight 58-year-old white female patient Dr. Cadena who was at physical therapy today when she noticed her systolic blood pressure was over 200. Patient states she did take her medication as prescribed. Patient denies chest pain. She denies shortness of breath. Patient denies headache. Patient denies visual changes. However she states she does feel little nauseated and has generalized body aches. She denies cough. Patient has multiple medical problems including severe anxiety and depression, arthritis, fibromyalgia, gastroesophageal reflux disease and coronary disease (cardiac stent). Patient states she can take morphine without any difficulty or problems. Timing/Duration: today Severity: mild Associated Symptoms: nausea, other (Myalgias and arthralgias), No vomiting, No abdominal pain, No shortness of breath, No chest pain, No headaches Allergies/Adverse Reactions: hydromorphone [From Dilaudid] Adverse Reaction (Verified 10/26/23 14:19) iv contrast Allergy (Uncoded 10/26/23 14:19) Home Medications: Losartan Potassium [Cozaar] 50 mg PO DAILY 05/13/19 [History] Escitalopram Oxalate [Lexapro 10 MG] 10 mg PO DAILY 03/14/22 [History] Lorazepam 0.5 mg [Ativan 0.5 MG] 0.5 mg PO DAILY 03/14/22 [History] Hx Tetanus, Diphtheria Vaccination/Date Given: Yes Hx Influenza Vaccination/Date Given: Yes Hx Pneumococcal Vaccination/Date Given: No Immunizations Up to Date: Yes Travel Risk - International Travel Have you traveled outside of the country in past 3 weeks: No - Coronavirus Screening Are you exhibiting any of the following symptoms?: Yes Symptoms: Headaches/Body Aches/Fatigue Close contact with a COVID-19 positive Pt in past 14-21 Days: No - Vaccine Status Have you recieved a Covid-19 vaccination: Yes [employer]: Pfizer - Vaccination Dates Date of 2cond Vaccination (if applicable): 2020 - Review of Systems Constitutional: No Symptoms Eyes: No Symptoms Ears, Nose, & Throat: No Symptoms Respiratory: No Symptoms Cardiac: No Symptoms Abdominal/Gastrointestinal: Nausea, No Abdominal Pain, No Vomiting, No Diarrhea, No Constipation Genitourinary Symptoms: No Symptoms Musculoskeletal: Arthralgias, Myalgias Skin: No Symptoms Neurological: No Symptoms Psychological: No Symptoms Endocrine: No Symptoms Hematologic/Lymphatic: No Symptoms Immunological/Allergic: No Symptoms All Other Systems: Reviewed and Negative - Past Medical History Pertinent Past Medical History: Yes Neurological History: No Pertinent History ENT History: No Pertinent History Cardiac History: Hypertension Respiratory History: No Pertinent History Endocrine Medical History: Diabetes Type II Musculoskeletal History: Arthritis, Fibromyalgia GI Medical History: Diverticulosis, GERD, Gallbladder Disease History: No Pertinent History Psycho-Social History: Anxiety, Depression Female Reproductive Disorders: No Pertinent History Other Medical History: GALL BLADDER REMOVAL, KIDNEY STENTS WITH REMOVAL OF STENTS, HX OF R SCIATICA. Lab Analyst: Dr. Ball - Past Surgical History Past Surgical History: Yes Neuro Surgical History: No Pertinent History Cardiac: Cardiac Catheterization, Cardiac Stent Respiratory: No Pertinent History Gastrointestinal: Cholecystectomy Genitourinary: Other Musculoskeletal: No Pertinent History Female Surgical History: Section Other Surgical History: stints placed in bilat kidneys - Social History Smoking Status: Never smoker Exposure to second hand smoke: No Alcohol Use: None Drug Use: none Patient Lives Alone: No (son) Significant Family History: no pertinent family hx, diabetes, hypertension - Nursing Vital Signs Nursing Vital Signs: Initial Vital Signs Temperature 98 F 10/26/23 14:09 Pulse Rate 86 10/26/23 14:09 Respiratory Rate 18 10/26/23 14:09 Blood Pressure 188/100 10/26/23 14:09 O2 Sat by Pulse Oximetry 99 10/26/23 14:09 Pain Scale Pain Intensity 8 - Physical Exam General Appearance: no apparent distress, alert, anxiety, obese Eye Exam: PERRL/EOMI, eyes nml inspection Ears, Nose, Throat Exam: normal ENT inspection, moist mucous membranes Neck Exam: normal inspection, non-tender, supple, full range of motion Respiratory Exam: normal breath sounds, lungs clear, airway intact, No chest tenderness, No respiratory distress Cardiovascular Exam: regular rate/rhythm, normal heart sounds, normal peripheral pulses Gastrointestinal/Abdomen Exam: soft, normal bowel sounds, No tenderness Pelvic Exam: not done Rectal Exam: not done Back Exam: normal inspection, normal range of motion, No CVA tenderness, No vertebral tenderness Extremity Exam: normal inspection, normal range of motion, pelvis stable Neurologic Exam: alert, oriented x 3, cooperative, oven roaster II-XII nml as tested, normal mood/affect, nml cerebellar function, nml station & gait, sensation nml Skin Exam: normal color, warm, dry Lymphatic Exam: No adenopathy SpO2 Interpretation: normal SpO2: 99 O2 Delivery: Room Air - Course Nursing assessment & vital signs reviewed: Yes EKG Interpreted by Me: RATE (82), Sinus Rhythm, NORMAL AXIS, NORMAL INTERVALS, NORMAL QRS, NORMAL ST-T, Other (No acute ischemic changes on today's twelve-lead EKG.) Ordered Tests: Active Orders 24 hr Category Date Time Status EKG-ER Only STAT Care 10/26/23 14:48 Active IV Insertion STAT Care 10/26/23 14:48 Active Pulse Oximetry (ED) STAT Care 10/26/23 14:48 Active HEAD WITHOUT CONTRAST [CT] Stat Exams 10/26/23 15:05 Completed CBC W DIFF Stat Lab 10/26/23 15:15 Completed CMP Stat Lab 10/26/23 15:15 Completed MAGNESIUM Stat Lab 10/26/23 15:15 Completed MONO SCREEN Stat Lab 10/26/23 15:15 Completed POCT GLUCOSE Stat Lab 10/26/23 14:17 Completed TROPONIN Q4H Lab 10/26/23 15:15 Completed TROPONIN Q4H Lab 10/26/23 19:00 Ordered TROPONIN Q4H Lab 10/26/23 23:00 Ordered UA W/RFX UR CULTURE Stat Lab 10/26/23 14:49 Completed Medication Summary Discontinued Medications Generic Name Dose Route Start Last Admin Trade Name Freq PRN Reason Stop Dose Admin Enalaprilat 1.25 mg 10/26/23 15:06 10/26/23 15:26 Enalaprilat 2.5 Mg Injection IV 10/26/23 15:07 1.25 mg STAT ONE Administration Enalaprilat Confirm 10/26/23 15:22 Enalaprilat 2.5 Mg Injection Administered 10/26/23 15:23 Dose 2.5 mg IV .STK-MED ONE Morphine Sulfate 2 mg 10/26/23 15:50 10/26/23 16:17 Morphine Sulfate 2 Mg/Ml Inj IV 10/26/23 15:51 2 mg STAT ONE Administration Morphine Sulfate Confirm 10/26/23 16:14 Morphine Sulfate 2 Mg/Ml Inj Administered 10/26/23 16:15 Dose 2 mg .ROUTE .STK-MED ONE Prochlorperazine Edisylate 5 mg 10/26/23 15:51 10/26/23 16:16 Prochlorperazine Edisylate 10 Mg/2 Ml Vial IV 10/26/23 15:52 5 mg STAT ONE Administration Prochlorperazine Edisylate Confirm 10/26/23 16:14 Prochlorperazine Edisylate 10 Mg/2 Ml Vial Administered 10/26/23 16:15 Dose 10 mg .ROUTE .STK-MED ONE Lab/Rad Data: Laboratory Result Diagrams 10/26/23 15:15 10/26/23 15:15 Laboratory Results 10/26/23 10/26/23 10/26/23 Range/Units 15:15 15:15 15:15 WBC (4.0-10.5) x10^3/uL RBC (4.1-5.4) x10^6/uL Hgb (12.0-16.0) g/dL Hct (35-47) % MCV (78-100) fL MCH (26-32) pg MCHC (32-36) g/dL RDW (11.5-14.0) % Plt Count (150-450) x10^3/uL MPV (7.5-11.0) fL Gran % (36.0-66.0) % Immature Gran % (Auto) (0.00-0.4) % Nucleat RBC Rel Count (0.00-0.1) % Eos # (Auto) (0-0.5) x10^3/uL Immature Gran # (Auto) (0.00-0.03) x10^3u/L Absolute Lymphs (auto) (1.0-4.6) x10^3/uL Absolute Monos (auto) (0.0-1.3) x10^3/uL Absolute Nucleated RBC (0.00-0.01) x10^3u/L Lymphocytes % (24.0-44.0) % Monocytes % (0.0-12.0) % Eosinophils % (0.00-5.0) % Basophils % (0.0-0.4) % Absolute Granulocytes (1.4-6.9) x10^3/uL Basophils # (0-0.4) x10^3/uL Sodium (137-145) mmol/L Potassium (3.5-5.1) mmol/L Chloride (98-107) mmol/L Carbon Dioxide (22-30) mmol/L Anion Gap (5-15) MEQ/L BUN (7-17) mg/dL Creatinine (0.52-1.04) mg/dL Estimated GFR ML/MIN Glucose (74-106) mg/dL POC Glucometer (74 to 106) mg/dL Calcium (8.4-10.2) mg/dL Magnesium (1.6-2.3) mg/dL Total Bilirubin (0.2-1.3) mg/dL AST (14-36) U/L ALT (0-35) U/L Alkaline Phosphatase (38-126) U/L Troponin I < 0.012 (0.000-0.034) ng/mL Serum Total Protein (6.3-8.2) g/dL Albumin (3.5-5.0) g/dL Urine Color (Yellow) Urine Appearance (Clear) Urine pH (4.6-8.0) Ur Specific [place] (1.005-1.030) Urine Protein (Negative) Urine Glucose (UA) (Negative) mg/dL Urine Ketones (Negative) Urine Blood (Negative) Urine Nitrite (Negative) Urine Bilirubin (Negative) Urine Urobilinogen (0.2) mg/dL Ur Leukocyte Esterase (Negative) U Hyaline Cast (Auto) (0-2) /LPF Urine Microscopic RBC (0-5) /HPF Urine Microscopic WBC (0-5) /HPF Ur Epithelial Cells (None Seen) /HPF Urine Bacteria (None Seen) /HPF Urine Culture Reflexed (NO) Monoscreen NEGATIVE (NEGATIVE) Influenza Type A Ag NEGATIVE (NEGATIVE) Influenza Type B Ag NEGATIVE (NEGATIVE) RSV (PCR) NEGATIVE (NEGATIVE) SARS-CoV-2 (PCR) NEGATIVE (NEGATIVE) 10/26/23 10/26/23 10/26/23 Range/Units 15:15 15:15 14:49 WBC 5.8 (4.0-10.5) x10^3/uL RBC 4.79 (4.1-5.4) x10^6/uL Hgb 15.1 (12.0-16.0) g/dL Hct 43.8 (35-47) % MCV 91.4 (78-100) fL MCH 31.5 (26-32) pg MCHC 34.5 (32-36) g/dL RDW 11.9 (11.5-14.0) % Plt Count 253 (150-450) x10^3/uL MPV 9.2 (7.5-11.0) fL Gran % 53.2 (36.0-66.0) % Immature Gran % (Auto) 0.2 (0.00-0.4) % Nucleat RBC Rel Count 0.0 (0.00-0.1) % Eos # (Auto) 0.04 (0-0.5) x10^3/uL Immature Gran # (Auto) 0.01 (0.00-0.03) x10^3u/L Absolute Lymphs (auto) 2.13 (1.0-4.6) x10^3/uL Absolute Monos (auto) 0.47 (0.0-1.3) x10^3/uL Absolute Nucleated RBC 0.00 (0.00-0.01) x10^3u/L Lymphocytes % 37.0 (24.0-44.0) % Monocytes % 8.2 (0.0-12.0) % Eosinophils % 0.7 (0.00-5.0) % Basophils % 0.7 (0.0-0.4) % Absolute Granulocytes 3.06 (1.4-6.9) x10^3/uL Basophils # 0.04 (0-0.4) x10^3/uL Sodium 137 (137-145) mmol/L Potassium 4.1 (3.5-5.1) mmol/L Chloride 103 (98-107) mmol/L Carbon Dioxide 25 (22-30) mmol/L Anion Gap 13.2 (5-15) MEQ/L BUN 13 (7-17) mg/dL Creatinine 0.55 (0.52-1.04) mg/dL Estimated GFR 105.5 ML/MIN Glucose 137 H (74-106) mg/dL POC Glucometer (74 to 106) mg/dL Calcium 9.8 (8.4-10.2) mg/dL Magnesium 1.9 (1.6-2.3) mg/dL Total Bilirubin 0.60 (0.2-1.3) mg/dL AST 139 H (14-36) U/L ALT 179 H (0-35) U/L Alkaline Phosphatase 121 (38-126) U/L Troponin I (0.000-0.034) ng/mL Serum Total Protein 8.6 H (6.3-8.2) g/dL Albumin 2.9 L (3.5-5.0) g/dL Urine Color Yellow (Yellow) Urine Appearance Clear (Clear) Urine pH 8.5 A (4.6-8.0) Ur Specific [place] 1.015 (1.005-1.030) Urine Protein Negative (Negative) Urine Glucose (UA) Negative (Negative) mg/dL Urine Ketones Negative (Negative) Urine Blood Negative (Negative) Urine Nitrite Negative (Negative) Urine Bilirubin Negative (Negative) Urine Urobilinogen 1.0 A (0.2) mg/dL Ur Leukocyte Esterase Negative (Negative) U Hyaline Cast (Auto) NONE SEEN (0-2) /LPF Urine Microscopic RBC 0-2 (0-5) /HPF Urine Microscopic WBC 3-5 (0-5) /HPF Ur Epithelial Cells Few (None Seen) /HPF Urine Bacteria None Seen (None Seen) /HPF Urine Culture Reflexed NO (NO) Monoscreen (NEGATIVE) Influenza Type A Ag (NEGATIVE) Influenza Type B Ag (NEGATIVE) RSV (PCR) (NEGATIVE) SARS-CoV-2 (PCR) (NEGATIVE) 10/26/23 Range/Units 14:17 WBC (4.0-10.5) x10^3/uL RBC (4.1-5.4) x10^6/uL Hgb (12.0-16.0) g/dL Hct (35-47) % MCV (78-100) fL MCH (26-32) pg MCHC (32-36) g/dL RDW (11.5-14.0) % Plt Count (150-450) x10^3/uL MPV (7.5-11.0) fL Gran % (36.0-66.0) % Immature Gran % (Auto) (0.00-0.4) % Nucleat RBC Rel Count (0.00-0.1) % Eos # (Auto) (0-0.5) x10^3/uL Immature Gran # (Auto) (0.00-0.03) x10^3u/L Absolute Lymphs (auto) (1.0-4.6) x10^3/uL Absolute Monos (auto) (0.0-1.3) x10^3/uL Absolute Nucleated RBC (0.00-0.01) x10^3u/L Lymphocytes % (24.0-44.0) % Monocytes % (0.0-12.0) % Eosinophils % (0.00-5.0) % Basophils % (0.0-0.4) % Absolute Granulocytes (1.4-6.9) x10^3/uL Basophils # (0-0.4) x10^3/uL Sodium (137-145) mmol/L Potassium (3.5-5.1) mmol/L Chloride (98-107) mmol/L Carbon Dioxide (22-30) mmol/L Anion Gap (5-15) MEQ/L BUN (7-17) mg/dL Creatinine (0.52-1.04) mg/dL Estimated GFR ML/MIN Glucose (74-106) mg/dL POC Glucometer 115 H (74 to 106) mg/dL Calcium (8.4-10.2) mg/dL Magnesium (1.6-2.3) mg/dL Total Bilirubin (0.2-1.3) mg/dL AST (14-36) U/L ALT (0-35) U/L Alkaline Phosphatase (38-126) U/L Troponin I (0.000-0.034) ng/mL Serum Total Protein (6.3-8.2) g/dL Albumin (3.5-5.0) g/dL Urine Color (Yellow) Urine Appearance (Clear) Urine pH (4.6-8.0) Ur Specific [place] (1.005-1.030) Urine Protein (Negative) Urine Glucose (UA) (Negative) mg/dL Urine Ketones (Negative) Urine Blood (Negative) Urine Nitrite (Negative) Urine Bilirubin (Negative) Urine Urobilinogen (0.2) mg/dL Ur Leukocyte Esterase (Negative) U Hyaline Cast (Auto) (0-2) /LPF Urine Microscopic RBC (0-5) /HPF Urine Microscopic WBC (0-5) /HPF Ur Epithelial Cells (None Seen) /HPF Urine Bacteria (None Seen) /HPF Urine Culture Reflexed (NO) Monoscreen (NEGATIVE) Influenza Type A Ag (NEGATIVE) Influenza Type B Ag (NEGATIVE) RSV (PCR) (NEGATIVE) SARS-CoV-2 (PCR) (NEGATIVE) - Progress Progress: improved Progress Note: 10/26/23 16:51 This patient's medical issue is 1 of moderate complexity. Level complexity in the workup performed is based on review of the patient's past medical history, review of the patient's medication list, review the patient's drug allergy list, history of present illness and physical findings on examination. The workup in this patient includes CT scan of the head without contrast, intravenous line placement, twelve-lead EKG, troponin level, urinalysis, CBC, CMP, viral swabs and monotest. I interpreted the patient's lab work results. There is no evidence of any acute or emergent findings. CT scan of the head without contrast was interpreted by the radiologist and I reviewed the impression. This CT scan of the head without contrast is normal. 10/26/23 16:52 I reexamined the patient. The patient has no dizziness. She has no headache. She has no nausea. She denies chest pain. She denies shortness of breath. Patient is neurologically intact. Counseled pt/family regarding: lab results, diagnosis, need for follow-up, rad results Medical Desision Making - Diagnostic Testing Diagnostic test were ordered, analyzed, and reviewed by me: Yes Radiological Interpretation: Reviewed by me, Teleradiologist Report - Risk of complications Minimal Risk: Minimal risk of morbidity - Departure Departure Disposition: Home Clinical Impression: Hypertension Condition: Stable Critical Care Time: No Referrals: WALLACE CADENA, [Primary Care Provider] - Follow up/PCP as directed Additional Instructions: Drink plenty of fluids. Take your medications as prescribed. Keep a daily log of morning noon and night blood pressure readings. Call your primary care provider tomorrow, 10/27/2023, to make arrangements for follow-up appointment for further evaluation management. Take the daily log readings of your blood pressure to your follow-up appointment.
[2023-10-26] MEDS ORDERED: ENALAPRILAT 2.5 MG INJECTION IV ONE ×2 (15:06→15:22)
[2023-10-26 15:18] LABS: Absolute Neutrophil Ct (ANC) 3.06 x10^3/uL (1.4-6.9); BASOPHIL % 0.7 % (0.0-0.4); Basophil (Absolute #) 0.04 x10^3/uL (0-0.4); Eosinophil % 0.7 % (0.00-5.0); Eosinophil (Absolute #) 0.04 x10^3/uL (0-0.5); Hematocrit 43.8 % (35-47); Hemoglobin 15.1 g/dL (12.0-16.0); IMMATURE GRAN # 0.01 x10^3u/L (0.00-0.03); IMMATURE GRAN % 0.2 % (0.00-0.4); Lymphocyte (Absolute #) 2.13 x10^3/uL (1.0-4.6); Mean Cell Volume 91.4 fL (78-100); Mean Corpuscular Hemoglobin 31.5 pg (26-32); Mean Corpuscular Hgb Concent. 34.5 g/dL (32-36); Mean Platelet Volume 9.2 fL (7.5-11.0); Monocyte (Absolute #) 0.47 x10^3/uL (0.0-1.3); Monocytes % 8.2 % (0.0-12.0); Neutrophil % 53.2 % (36.0-66.0); Platelet Count 253 x10^3/uL (150-450); Red Blood Count 4.79 x10^6/uL (4.1-5.4); Red Cell Distribution Width 11.9 % (11.5-14.0); White Blood Count 5.8 x10^3/uL (4.0-10.5)
[2023-10-26 15:23] LABS: ADD URINE CULTURE? NO (NO); Appearance Clear (Clear); Bacteria None Seen /HPF (None Seen); Bilirubin Negative (Negative); Blood Negative (Negative); Epithelial Cells Few /HPF (None Seen); Glucose, Urine Negative (Negative); Hyaline Casts NONE SEEN /LPF (0-2); Ketones Negative (Negative); Leukocyte Esterase Negative (Negative); Nitrite Negative (Negative); Ph 8.5 (4.6-8.0); Protein,Urine Dip Negative (Negative); RBC 0-2 /HPF (0-5); Specific Gravity 1.015 (1.005-1.030)
[2023-10-26 15:45] LABS: ANION GAP 13.2 MEQ/L (5-15); BILIRUBIN,TOTAL 0.6 mg/dL (0.2-1.3); Calcium 9.8 mg/dL (8.4-10.2); Creatinine 1 0.55 mg/dL (0.52-1.04); EST GLOMERULAR FILTRATION RATE 105.5 ML/MIN; MAGNESIUM 1.9 mg/dL (1.6-2.3); Potassium 4.1 mmol/L (3.5-5.1); Total Protein 8.6 g/dL (6.3-8.2)
[2023-10-26] MEDS ORDERED: MORPHINE SULFATE 2 MG INJ IV ONE (15:50)
[2023-10-26] MEDS ORDERED: Compazine 10 MG/2 ML IV ONE (15:51)
[2023-10-26 15:55] LABS: INFLUENZA A NEGATIVE (NEGATIVE); INFLUENZA B NEGATIVE (NEGATIVE); RESPIRATORY SYNCTIAL VIRUS NEGATIVE (NEGATIVE); SARS-CoV-2 Xpert Express NEGATIVE (NEGATIVE)
[2023-10-26] MEDS ORDERED: Compazine 10 MG/2 ML ONE (16:14)
[2023-10-26] MEDS ORDERED: MORPHINE SULFATE 2 MG INJ ONE (16:14)
--- NOTE | 2023-10-26 16:22 | XRAY ---
Indication: Headache. Hypertension. Multiple contiguous axial images obtained the head without contrast. Comparison: March 14, 2022 Normal appearing brain parenchyma, ventricles, and bony calvarium for patient's age. Visualized paranasal sinuses and mastoid air cells are clear. Impression: Continued normal CT head without contrast exam.
[2023-10-26 17:02] VITALS: BP 145/78; PULSE 78; RESP 18; O2SAT 96
[2023-10-31 21:22] LABS: ALBUMIN 4.4 g/dL (3.5-5.0)
== END 2023-10-26 17:15 | disposition home or self-care (01) ==
LOC: ED 14:09
DX: I10 Essential (primary) hypertension (principal); R11.0 Nausea; M79.10 Myalgia, unspecified site; E11.9 Type 2 diabetes mellitus without complications; Z79.899 Other long term (current) drug therapy
CPT/HCPCS: 0241U; 36000; 36415; 70450; 80053; 81001; 82947; 83735; 84484; 85025; 86308; 93005; 94760; 96374; 96375; 99284; J2270

== ENCOUNTER 2024-08-28 17:24 | Emergency (ER) | payer OTHER ==
[2024-08-28 17:42] VITALS: RESP 20; TEMP 97.2
--- NOTE | 2024-08-28 17:50 | ERPHSYRPT ---
- History of Present Illness Time Seen by Provider: 08/28/24 17:47 Source: patient Exam Limitations: no limitations Patient Subjective Stated Complaint: PT states "I cut my toe on a trash bag." Triage Nursing Assessment: Pt presented alert and oriented X 3, skin pwd. Pt ambulates with a limp. PT has laceration noted underthird toe on right foot, bleeding controlled with pressure. Physician History: 58-year-old female history of diabetes presents to our ED for evaluation of a laceration to the flexor crease of the right foot third digit. Injury occurred just prior to arrival. Patient states she stepped on a trash bag and something sliced into her toe. She is unsure what sliced into her toe. She was not wearing shoes. Injury occurred just prior to arrival. There is a 1 centimeter circumferential laceration to the plantar aspect of the right third digit. Patient's tetanus is not up-to-date. No other injuries reported. Patient otherwise feels well. She voices no other complaints or concerns at this time. Portions of this note were created with voice recognition technology. There may be grammatical, spelling, punctuation or sound alike errors Timing/Duration: today Severity: moderate Modifying Factors: Improves With: nothing Associated Symptoms: denies symptoms Allergies/Adverse Reactions: hydromorphone [From Dilaudid] Adverse Reaction (Verified 10/26/23 14:19) iv contrast Allergy (Uncoded 10/26/23 14:19) Home Medications: Losartan Potassium [Cozaar] 50 mg PO DAILY 05/13/19 [History] Escitalopram Oxalate [Lexapro 10 MG] 10 mg PO DAILY 03/14/22 [History] Lorazepam 0.5 mg [Ativan 0.5 MG] 0.5 mg PO DAILY 03/14/22 [History] Hx Tetanus, Diphtheria Vaccination/Date Given: No Hx Influenza Vaccination/Date Given: No Hx Pneumococcal Vaccination/Date Given: No Travel Risk - International Travel Have you traveled outside of the country in past 3 weeks: No - Emerging Infectious Disease Are you exhibiting symptoms associated with any current EIDs: No - Review of Systems Constitutional: No Symptoms, No Fever, No Chills Eyes: No Symptoms Ears, Nose, & Throat: No Symptoms Respiratory: No Symptoms, No Cough, No Dyspnea Cardiac: No Symptoms, No Chest Pain, No Edema, No Syncope Abdominal/Gastrointestinal: No Symptoms, No Abdominal Pain, No Nausea, No Vomiting, No Diarrhea Genitourinary Symptoms: No Symptoms, No Dysuria Musculoskeletal: No Symptoms, No Back Pain, No Neck Pain Skin: No Symptoms, No Rash Neurological: No Symptoms, No Dizziness, No Focal Weakness, No Sensory Changes Psychological: No Symptoms Endocrine: No Symptoms Hematologic/Lymphatic: No Symptoms Immunological/Allergic: No Symptoms All Other Systems: Reviewed and Negative - Past Medical History Pertinent Past Medical History: Yes Neurological History: No Pertinent History ENT History: No Pertinent History Cardiac History: Hypertension, Myocardial Infarction (IA) Respiratory History: No Pertinent History Endocrine Medical History: Diabetes Type II Musculoskeletal History: Arthritis, Fibromyalgia, Muscular Dystrophy GI Medical History: Diverticulosis, GERD, Gallbladder Disease History: No Pertinent History Psycho-Social History: Anxiety, Depression Female Reproductive Disorders: No Pertinent History Other Medical History: Hypokalemia, HTN, urinary retention, anxiety, depression, abdominal pain, diverticulosis, enteritis, GERD with esophagitis, insomnia, UTI, general weakness, dehydration, vomiting. cholecystectomy - Past Surgical History Past Surgical History: Yes Neuro Surgical History: No Pertinent History Cardiac: Cardiac Catheterization, Cardiac Stent Respiratory: No Pertinent History Gastrointestinal: Cholecystectomy Genitourinary: Other Musculoskeletal: No Pertinent History Female Surgical History: Section Other Surgical History: stints placed in bilat kidneys Significant Family History: no pertinent family hx, diabetes, hypertension - Social History Smoking Status: Never smoker Exposure to second hand smoke: No Alcohol Use: None Drug Use: none Patient Lives Alone: No (son) - Social Determinants of Health Will the patient participate in the screening: Declined to provide - Nursing Vital Signs Nursing Vital Signs: Initial Vital Signs Temperature 97.2 F 08/28/24 17:34 Pulse Rate 102 H 08/28/24 17:34 Respiratory Rate 20 08/28/24 17:34 Blood Pressure 165/78 08/28/24 17:34 O2 Sat by Pulse Oximetry 98 08/28/24 17:34 Pain Scale Pain Intensity 4 - Physical Exam General Appearance: no apparent distress, alert Eye Exam: PERRL/EOMI, eyes nml inspection Ears, Nose, Throat Exam: normal ENT inspection, TMs normal, pharynx normal, moist mucous membranes Neck Exam: normal inspection, non-tender, supple, full range of motion Respiratory Exam: normal breath sounds, lungs clear, airway intact, No respiratory distress Cardiovascular Exam: regular rate/rhythm, normal heart sounds, normal peripheral pulses Gastrointestinal/Abdomen Exam: soft, normal bowel sounds, No tenderness, No mass Back Exam: normal inspection, normal range of motion, No CVA tenderness, No vertebral tenderness Extremity Exam: normal inspection, normal range of motion, pelvis stable, other (There is a circumferential laceration around the pad of the third digit right foot. The pad appears to have good capillary refill.) Neurologic Exam: alert, oriented x 3, cooperative, normal mood/affect, nml cerebellar function, nml station & gait, sensation nml, No motor deficits Skin Exam: normal color, warm, dry, No rash Lymphatic Exam: No adenopathy SpO2 Interpretation: normal SpO2: 98 O2 Delivery: Room Air - Course Nursing assessment & vital signs reviewed: Yes - Radiology Exams Foot X-ray Interpretation: Interpreted by me (No fracture dislocations) Ordered Tests: Active Orders 24 hr Category Date Time Status FOOT (MINIMUM 3 VIEWS) Stat Exams 08/28/24 17:46 Taken Medication Summary Discontinued Medications Generic Name Dose Route Start Last Admin Trade Name Jayantq PRN Reason Stop Dose Admin Ceftriaxone Sodium 1,000 mg 08/28/24 17:47 08/28/24 19:22 Ceftriaxone Sodium 1000 Mg Inj Vial IM 08/28/24 17:48 1,000 mg STAT ONE Administration Ceftriaxone Sodium Confirm 08/28/24 19:21 Ceftriaxone Sodium 1000 Mg Inj Vial Administered 08/28/24 19:22 Dose 1,000 mg .ROUTE .STK-MED ONE Diphtheria/Tetanus/Acell Pertussis 0.5 ml 08/28/24 17:47 08/28/24 19:22 Tdap --Diph,Pertuss(Acell),Tet Vac/Pf 0.5 Ml Vial IM 08/28/24 17:48 0.5 ml .ONCE ONE Administration Diphtheria/Tetanus/Acell Pertussis Confirm 08/28/24 19:21 Tdap --Diph,Pertuss(Acell),Tet Vac/Pf 0.5 Ml Vial Administered 08/28/24 19:22 Dose 0.5 ml IM .STK-MED ONE Lidocaine HCl Confirm 08/28/24 19:21 Lidocaine Hcl 1% 20 Ml Mdv 20 Ml Ml Administered 08/28/24 19:22 Dose 3 ml .ROUTE .STK-MED ONE - Progress Progress: improved Progress Note: 58-year-old female presents to emergency department for evaluation status post laceration to the pad of the right foot third digit. The laceration was repaired. The involved digit neurovascular intact distally post procedure. Patient tolerated procedure well. Antibiotics administered. Tetanus updated. X-ray negative for fracture dislocation. No residual foreign body observed. However because of the extent of the injury patient will require follow-up in the orthopedic clinic/podiatry clinic. Patient referred to the clinic for evaluation tomorrow. They agree to follow-up as planned. They voiced no other complaints or concerns at this time. Portions of this note were created with voice recognition technology. There may be grammatical, spelling, punctuation or sound alike errors Complexity of problem addressed is moderate acute complicated. No critical care time. Complexity data reviewed and analyzed is moderate. Test ordered chest reviewed results analyzed and correlated clinically with history and physical exam. Risk of complication and or risk of morbidity/mortality of patient management is moderate. A prescription for antibiotics forwarded to patient's pharmacy. Vital stable. Time spent to discharge patient is approximately 20 minutes. Plan of care established for shared decision making. No social determinants of health present to impede follow-up. Portions of this note were created with voice recognition technology. There may be grammatical, spelling, punctuation or sound alike errors 08/28/24 20:56 Counseled pt/family regarding: diagnosis, need for follow-up, rad results - Departure Departure Disposition: Home Clinical Impression: Toe laceration Condition: Stable Critical Care Time: No Referrals: WALLACE CADENA DO [Primary Care Provider] - Follow up/PCP as directed Additional Instructions: Discharge/Care Plan YG MAURICE was seen on 08/28/24 in the Emergency Room. The patient was counseled regarding Diagnosis,Lab results, Imaging studies, need for follow up and when to return to the Emergency Room. Prescriptions given: Discharge Note I have spoken with the patient and/or caregivers. I have explained the patient's condition, diagnosis and treatment plan based on the information available to me at this time. I have answered the patient's and/or caregiver's questions and addressed any concerns. The patient and/or caregivers have as good understanding of the patient's diagnosis, condition and treatment plan as can be expected at this point. The vital signs have been stable. The patient's condition is stable and appropriate for discharge from the emergency department. The patient will pursue further outpatient evaluation with the primary care physician or other designated or consulting physician as outlined in the discharge instructions. The patient and/or caregivers are agreeable to this plan of care and follow-up instructions have been explained in detail. The patient and/or caregivers have received these instruction. The patient/and or caregivers are aware that any significant change in condition or worsening of symptoms should prompt an immediate return to this or the closest emergency department or call 911. Prescriptions: Cephalexin Mh 500 mg [Keflex 500 mg] 500 mg PO TID #21 cap Outpatient Orders: Ortho Referral Time Frame: 1 Day, Facility: [facility][1]. Hosp, Location: [facility]
[2024-08-28 18:44] VITALS: PULSE 88
[2024-08-28] MEDS ORDERED: Adacel Vial IM ONE (19:21)
[2024-08-28] MEDS ORDERED: XYLOCAINE 1% HCL 20 ML MDV ONE (19:21)
[2024-08-28] MEDS ORDERED: Rocephin 1000 MG INJ ONE (19:21)
[2024-08-28] MEDS: Rocephin 1000 MG INJ IM ONE (19:22)
[2024-08-28] MEDS: Adacel Vial IM ONE (19:22)
[2024-08-28 20:44] VITALS: BP 158/74
[2024-08-28 20:59] VITALS: O2SAT 98
--- NOTE | 2024-08-29 08:41 | XRAY ---
Indication: 3rd toe laceration. Comparison: None 3 nonweightbearing views right foot demonstrates bandage material overlying 3rd toe limiting exam. No acute fracture, dislocation, or suspicious bony lesions. Incidental osteopenia, mild 1st MTP degenerative changes, tiny plantar heel spur, and small navicular accessory ossicle.
== END 2024-08-28 21:43 | disposition home or self-care (01) ==
LOC: ED 17:24
DX: S91.114A Laceration without foreign body of right lesser toe(s) without damage to nail, initial encounter (principal); W22.09XA Striking against other stationary object, initial encounter; W45.8XXA Other foreign body or object entering through skin, initial encounter; I10 Essential (primary) hypertension; E11.9 Type 2 diabetes mellitus without complications; Z79.899 Other long term (current) drug therapy; Z23 Encounter for immunization
CPT/HCPCS: 73630; 90471; 90715; 96372; 99284; J0696